=== PATIENT | female | born 1935 | race Caucasian/White ===

== ENCOUNTER 2017-01-25 16:38 | Inpatient (IN) | payer OTHER, BC ==
[~2017-01-25] VITALS: Ht 165.1 cm; Wt 53.5 kg
[~2017-01-25 16:38] MED LIST: AMOX875T PO; LEVO150T PO; NAPR1CAP12 PO
--- NOTE | 2017-01-25 18:08 | DIAGNOSTIC IMAGING REPORT ---
CHEST ONE VIEW PORTABLE CLINICAL HISTORY: Weakness. Dizziness. COMPARISON STUDY: No previous studies for comparison. FINDINGS: There is no pneumothorax or pleural effusion. Pulmonary vascularity is normal. No consolidation is identified to suggest pneumonia. Cardiac size is normal. There is right infrahilar fullness. IMPRESSION: Right infrahilar fullness. This may reflect normal structures however a mass or lymphadenopathy could appear similar and a nonemergent chest CT with contrast is recommended. Electronically signed by: Patricio Malave M.D. 01/25/2017 6:07 PM Dictated Date/Time: 01/25/2017 6:05 PM
--- NOTE | 2017-01-25 18:15 | DIAGNOSTIC IMAGING REPORT ---
CT OF THE HEAD WITHOUT CONTRAST CLINICAL HISTORY: Fall. Weakness. COMPARISON STUDY: No previous studies for comparison. CT DOSE: 879.50 mGy.cm TECHNIQUE: Helical axial images of the head were obtained without IV contrast. Automated exposure control was utilized for the study. FINDINGS: No acute intracranial hemorrhage, midline shift or mass effect is present. Ventricular system is unremarkable for age. The basilar cisterns are patent. There are no extra-axial collections. Moderate white matter hypodensity suggests small vessel disease. There are no findings to suggest acute dural sinus thrombosis or acute territorial infarct. There is no calvarial fracture. There are layering secretions within the right maxillary sinus. There are postsurgical findings within the sinuses. There may be a small amount of fluid within the bilateral mastoid air cells. IMPRESSION: 1. No acute intracranial findings. 2. No calvarial fracture. Electronically signed by: Patricio Malave M.D. 01/25/2017 6:14 PM Dictated Date/Time: 01/25/2017 6:12 PM
--- NOTE | 2017-01-25 18:18 | DIAGNOSTIC IMAGING REPORT ---
CT OF THE CERVICAL SPINE WITHOUT CONTRAST CLINICAL HISTORY: Fall. COMPARISON STUDY: No previous studies for comparison. TECHNIQUE: Helical axial images of the cervical spine were obtained without IV contrast. Sagittal and coronal reconstructions were viewed. FINDINGS: No acute cervical spine fracture is identified. Vertebral body heights are maintained. [id number] multilevel degenerative changes are present. There is a small amount of fluid within the bilateral mastoid air cells. There is no prevertebral edema. There is no pneumothorax within visualized portions of the lung apices. Mild anterolisthesis of C7 on T1 is likely due to facet arthrosis. IMPRESSION: No acute cervical spine fracture or subluxation. Electronically signed by: Patricio Malave M.D. 01/25/2017 6:17 PM Dictated Date/Time: 01/25/2017 6:15 PM
[2017-01-25 18:30] LABS: URINE APPEARANCE CLOUDY (CLEAR); URINE BILIRUBIN NEG (NEG); URINE COLOR YELLOW; URINE NITRITE POS (NEG); URINE SPECIFIC GRAVITY 1.017 (1.000-1.030); UROBILINOGEN NEG (NEG); ZZUR CULT IF INDIC CLEAN CATCH YES
[2017-01-25 18:34] LABS: MANUAL MICROSCOPIC REQUIRED? NO; REVIEW REQ? YES
[2017-01-25] MEDS ORDERED: CEFTRIAXONE SOD INJ 1 GM ADDVIAL IV STA (18:45)
[2017-01-25 19:26] LABS: BASO % 0.3 %; BASO ABS # 0.03 K/uL (0-0.2); COMPLETE YES; EOS % 3.1 %; HEMATOCRIT 41.1 % (37-47); IG% 0.3 %; LYMPH % 22.7 %; LYMPH ABS # 1.96 K/uL (1.2-3.4); MEAN CELL VOLUME 85.8 fL (80-100); MEAN CORPUSCULAR HEMOGLOBIN 28.8 pg (25-34); MEAN CORPUSCULAR HGB CONC 33.6 g/dl (32-36); MEAN PLATELET VOLUME 11.1 fL (7.4-10.4); MONO % 6.7 %; NEUT % 66.9 %; PLATELET COUNT 248 K/uL (130-400); RED BLOOD COUNT 4.79 M/uL (4.2-5.4); WHITE BLOOD COUNT 8.65 K/uL (4.8-10.8)
[2017-01-25] MEDS ORDERED: SODIUM CHLORIDE 0.9% 1000ML 1,000 ML IV STA ×3 (19:31→21:59)
[2017-01-25 19:55] LABS: ALT/SGPT 14 U/L (12-78); BLOOD UREA NITROGEN 38 mg/dl (7-18); BUN/CREATININE RATIO 41.5 (10-20); CALCIUM 9.3 mg/dl (8.5-10.1); CARBON DIOXIDE 26 mmol/L (21-32); CHLORIDE 105 mmol/L (98-107); CREATININE 0.91 mg/dl (0.60-1.20); GLUCOSE 85 mg/dl (70-99); POTASSIUM 4.2 mmol/L (3.5-5.1); SODIUM 139 mmol/L (136-145)
[2017-01-25 20:05] LABS: ALKALINE PHOSPHATASE 62 U/L (45-117); AST/SGOT 8 U/L (15-37)
--- NOTE | 2017-01-25 21:02 | EMERGENCY ROOM VISIT NOTE ---
History Report prepared by Michael: Tayla Gonzalez Under the Supervision of: Dr. Lynnette Rowley D.O. First contact with patient: 17:03 Chief Complaint: HYPOTENSION Stated Complaint: VERTIGO, LOW BP, NAUSEA, VOMITING History of Present Illness The patient is a 81 year old female who presents to the Emergency Room with complaints of intermittent headaches starting 3 months ago. Her daughter reports that the patient will be normal and energetic for 2-3 days and then be pale and without energy for 2-3 days. The headache is present around the top of her head, around her ears, and behind her eyes. When the patient gets her headaches, she also gets nausea and vomiting. She has been losing weight because she has not been eating because of her nausea and vomiting. She experiences some blurry vision. She feels lightheaded and close to passing out at times, but has not lost consciousness. At first, her symptoms were blamed on allergies and she was placed on Claritin which did not help her. She was on a 10 day course of antibiotics for a sinus infection recently, but experienced no relief. She has been monitoring her blood pressure at home and notes that it has been fluctuating. Her blood pressure was 88/46 when it was measured previously at the doctor's office. Three days ago, she fell in the bathroom because she was dizzy. She hit her back on the commode. She denies any chest pain, heart palpitations, SOB, diarrhea, melena, or urinary symptoms. She has no history of migraines. She has a history of bladder cancer. Source of History: patient, family Onset: 3 months ago Position: head Quality: ache Timing: intermittent Associated Symptoms: + nausea, + vomiting, No LOC, No SOB, No chest pain, No diarrhea, No melena, No urinary symptoms Note: Pt reports lightheadedness, dizziness, blurry vision at times. Pt denies heart palpitations. Review of Systems See HPI for pertinent positives & negatives. A total of 10 systems reviewed and were otherwise negative. Past Medical & Surgical Medical Problems: (1) Bladder cancer Family History Noncontributory secondary to age. Social History Smoking Status: Current Every Day Smoker Alcohol Use: none Marital Status: Occupation Status: retired Current/Historical Medications Scheduled Levothyroxine Sodium (Synthroid), 150 MCG PO DAILY Scheduled PRN Naproxen Sodium (Aleve), 1 CAP PO UD PRN for Pain Allergies Coded Allergies: Iodinated Diagnostic Agents (Verified Allergy, Unknown, HIVES TO ORAL CONTRAST, 02/06/14) Corticosteroids (Verified Adverse Reaction, Unknown, "CAN'T TAKE HIGH DOSES", 02/06/14) Physical Exam Vital Signs Date Time Temp Pulse Resp B/P Pulse Ox O2 Delivery O2 Flow Rate FiO2 01/25/17 20:49 69 22 137/71 97 Room Air 01/25/17 20:44 64 163/73 74 161/94 73 137/71 01/25/17 19:05 64 01/25/17 19:02 66 24 149/81 97 01/25/17 16:41 36.6 90 16 151/103 100 Room Air Physical Exam GENERAL: alert, well appearing, slightly cachetic, no distress, non-toxic EYE EXAM: normal conjunctiva, PERRL and EOM's grossly intact OROPHARYNX: no exudate, no erythema, lips, buccal mucosa, and tongue normal and mucous membranes are moist NECK: supple, no nuchal rigidity, no adenopathy, non-tender LUNGS: Decreased breath sounds bilaterally. No wheezes, rhonchi, or rales. HEART: no murmurs, S1 normal and S2 normal ABDOMEN: abdomen soft, non-tender, normo-active bowel sounds, no masses, no rebound or guarding, urostomy bag BACK: Back is symmetrical on inspection and there is no deformity, no midline tenderness, no CVA tenderness. SKIN: no rashes and no bruising UPPER EXTREMITIES: upper extremities are grossly normal. LOWER EXTREMITIES: No pitting edema. NEURO EXAM: Normal sensorium, cranial nerves II-XII intact, normal speech, no weakness of arms, no weakness of legs. No drift. Finger to nose intact. Gross sensation intact. Medical Decision & Procedures ER Provider Diagnostic Interpretation: Xray results per the radiologist and my interpretation. Other results have been interpreted by the radiologist and reviewed by me. CHEST ONE VIEW PORTABLE CLINICAL HISTORY: Weakness. Dizziness. COMPARISON STUDY: No previous studies for comparison. FINDINGS: There is no pneumothorax or pleural effusion. Pulmonary vascularity is normal. No consolidation is identified to suggest pneumonia. Cardiac size is normal. There is right infrahilar fullness. IMPRESSION: Right infrahilar fullness. This may reflect normal structures however a mass or lymphadenopathy could appear similar and a nonemergent chest CT with contrast is recommended. Electronically signed by: Patricio Malave M.D. 01/25/2017 6:07 PM Dictated Date/Time: 01/25/2017 6:[address] OF THE HEAD WITHOUT CONTRAST CLINICAL HISTORY: Fall. Weakness. COMPARISON STUDY: No previous studies for comparison. CT DOSE: 879.50 mGy.cm TECHNIQUE: Helical axial images of the head were obtained without IV contrast. Automated exposure control was utilized for the study. FINDINGS: No acute intracranial hemorrhage, midline shift or mass effect is present. Ventricular system is unremarkable for age. The basilar cisterns are patent. There are no extra-axial collections. Moderate white matter hypodensity suggests small vessel disease. There are no findings to suggest acute dural sinus thrombosis or acute territorial infarct. There is no calvarial fracture. There are layering secretions within the right maxillary sinus. There are postsurgical findings within the sinuses. There may be a small amount of fluid within the bilateral mastoid air cells. IMPRESSION: 1. No acute intracranial findings. 2. No calvarial fracture. Electronically signed by: Patricio Malave M.D. 01/25/2017 6:14 PM Dictated Date/Time: 01/25/2017 6:[address] OF THE CERVICAL SPINE WITHOUT CONTRAST CLINICAL HISTORY: Fall. COMPARISON STUDY: No previous studies for comparison. TECHNIQUE: Helical axial images of the cervical spine were obtained without IV contrast. Sagittal and coronal reconstructions were viewed. FINDINGS: No acute cervical spine fracture is identified. Vertebral body heights are maintained. [id number] multilevel degenerative changes are present. There is a small amount of fluid within the bilateral mastoid air cells. There is no prevertebral edema. There is no pneumothorax within visualized portions of the lung apices. Mild anterolisthesis of C7 on T1 is likely due to facet arthrosis. IMPRESSION: No acute cervical spine fracture or subluxation. Electronically signed by: Patricio Malave M.D. 01/25/2017 6:17 PM Dictated Date/Time: 01/25/2017 6:15 PM Laboratory Results 01/25/17 19:00 Red Blood Count 4.79, Mean Corpuscular Volume 85.8, Mean Corpuscular Hemoglobin 28.8, Mean Corpuscular Hemoglobin Concent 33.6, Mean Platelet Volume 11.1, Neutrophils (%) (Auto) 66.9, Lymphocytes (%) (Auto) 22.7, Monocytes (%) (Auto) 6.7, Eosinophils (%) (Auto) 3.1, Basophils (%) (Auto) 0.3, Neutrophils # (Auto) 5.78, Lymphocytes # (Auto) 1.96, Monocytes # (Auto) 0.58, Eosinophils # (Auto) 0.27, Basophils # (Auto) 0.03 01/25/17 19:00 Test 01/25/17 18:00 01/25/17 19:00 Urine Color YELLOW Urine Appearance CLOUDY (CLEAR) Urine pH 6.0 (4.5-7.5) Urine Specific [place] 1.017 (1.000-1.030) Urine Protein 1+ (NEG) Urine Glucose (UA) NEG (NEG) Urine Ketones NEG (NEG) Urine Occult Blood 2+ (NEG) Urine Nitrite POS (NEG) Urine Bilirubin NEG (NEG) Urine Urobilinogen NEG (NEG) Urine Leukocyte Esterase MODERATE (NEG) Urine WBC (Auto) >30 /hpf (0-5) Urine RBC (Auto) 5-10 /hpf (0-4) Urine Hyaline Casts (Auto) 5-10 /lpf (0-5) Urine Epithelial Cells (Auto) 10-20 /lpf (0-5) Urine Bacteria (Auto) 4+ (NEG) Urine Pathogenic Casts /lpf (0) White Blood Count 8.65 K/uL (4.8-10.8) Red Blood Count 4.79 M/uL (4.2-5.4) Hemoglobin 13.8 g/dL (12.0-16.0) Hematocrit 41.1 % (37-47) Mean Corpuscular Volume 85.8 fL (80-100) Mean Corpuscular Hemoglobin 28.8 pg (25-34) Mean Corpuscular Hemoglobin Concent 33.6 g/dl (32-36) Platelet Count 248 K/uL (130-400) Mean Platelet Volume 11.1 fL (7.4-10.4) Neutrophils (%) (Auto) 66.9 % Lymphocytes (%) (Auto) 22.7 % Monocytes (%) (Auto) 6.7 % Eosinophils (%) (Auto) 3.1 % Basophils (%) (Auto) 0.3 % Neutrophils # (Auto) 5.78 K/uL (1.4-6.5) Lymphocytes # (Auto) 1.96 K/uL (1.2-3.4) Monocytes # (Auto) 0.58 K/uL (0.11-0.59) Eosinophils # (Auto) 0.27 K/uL (0-0.5) Basophils # (Auto) 0.03 K/uL (0-0.2) RDW Standard Deviation 44.1 fL (36.4-46.3) RDW Coefficient of Variation 14.1 % (11.5-14.5) Immature Granulocyte % (Auto) 0.3 % Immature Granulocyte # (Auto) 0.03 K/uL (0.00-0.02) Anion Gap 8.0 mmol/L (3-11) Est Creatinine Clear Calc Drug Dose 37.1 ml/min Estimated GFR () 68.6 Estimated GFR (Non- 59.2 BUN/Creatinine Ratio 41.5 (10-20) Calcium Level 9.3 mg/dl (8.5-10.1) Magnesium Level 2.0 mg/dl (1.8-2.4) Total Bilirubin 0.6 mg/dl (0.2-1) Aspartate Amino Transf (AST/SGOT) 8 U/L (15-37) Alanine Aminotransferase (ALT/SGPT) 14 U/L (12-78) Alkaline Phosphatase 62 U/L (45-117) Troponin I < 0.015 ng/ml (0-0.045) Total Protein 7.1 gm/dl (6.4-8.2) Albumin 3.5 gm/dl (3.4-5.0) Globulin 3.6 gm/dl (2.5-4.0) Albumin/Globulin Ratio 1.0 (0.9-2) Thyroid Stimulating Hormone (TSH) 1.080 uIu/ml (0.300-4.500) Laboratory results per my review. Medications Administered Medications (Trade) Dose Ordered Sig/Pradeep Route Start Time Stop Time Status Last Admin Dose Admin Sodium Chloride 1,000 ml @ 999 mls/hr Q1H1M STAT IV 01/25/17 19:31 01/25/17 20:31 DC 01/25/17 19:39 999 MLS/HR Sodium Chloride 1,000 ml @ 999 mls/hr Q1H1M STAT IV 01/25/17 20:23 01/25/17 21:23 DC 01/25/17 20:23 999 MLS/HR Sodium Chloride (Nss 1000ml) 1,000 ml @ 125 mls/hr Q8H STAT IV 01/25/17 21:59 01/26/17 05:58 01/25/17 22:13 125 MLS/HR ECG Indication: weakness Rate (beats per minute): 65 Rhythm: sinus rhythm Findings: PVC, no acute ischemic change, other (normal axis, normal interval) ED Course 1712: The patient was evaluated in room C10. A complete history and physical exam was performed. 1930: NSS 1000 ml @ 999 mls/hr IV. 2022: NSS 1000 ml @ 999 mls/hr IV. 2043: I reevaluated the patient. I tried standing the patient up and doing orthos. She was unsteady and began to complain of headache and lightheadedness. I discussed the results and treatment plan with her. She is agreeable to further evaluation. Medical Decision Differential diagnoses: dehydration, renal failure, electrolyte abnormality, intracranial mass, intracranial hemorrhage, CVA. UA contaminated due to urostomy. Culture pending. Concern given the persistence of orthostatic symptoms despite no recurrence of hypotension. Patient with recent weight loss, poor appetite, recurrent headaches and vomiting and failure to thrive. Doubt occult infectious process, UA contaminated culture pending. Vital signs improved here. No other evidence of occult infectious process, bacteremia/sepsis. Unclear etiology of recurrent headaches and vomiting. No prior history of migraines. Concern given per by mouth intake, weight loss, and unsteady gait seemed bedside despite IV fluids. Ratio BUN/creatinine were suggestive of dehydration, I do not suspect an occult GI bleed. Doubt vascular etiology/dissection, doubt ACS - no c/o cp/sob. Impression Primary Impression: Dehydration Additional Impressions: Headache Dizziness Weight loss Vomiting Scribe Attestation The scribe's documentation has been prepared under my direction and personally reviewed by me in its entirety. I confirm that the note above accurately reflects all work, treatment, procedures, and medical decision making performed by me. Departure Information Dispostion Being Evaluated By Hospitalist Jm Scott D.O. (PCP) Patient Instructions My [facility] Problem Qualifiers Additional Impressions: Headache Headache type: unspecified Headache chronicity pattern: episodic headache Intractability: not intractable Qualified Codes: R51 - Headache Vomiting Vomiting type: unspecified Vomiting Intractability: non-intractable Nausea presence: with nausea Qualified Codes: R11.2 - Nausea with vomiting, unspecified
--- NOTE | 2017-01-25 21:50 | History and Physical ---
History & Physical Date & Time of Service: Jan 25, 2017 at 21:50 Chief Complaint: Vertigo, Low Bp, Nausea, Vomiting Primary Care Physician: Jm Bender D.O. History of Present Illness Source: family This is an 81 y/o F with a history of Bladder ca s/p bladder removal and urostomy, Hypothyroidism, multiple surgeries who presents with a 3 months history of feeling unwell. The patient is extremely hard of hearing, so most of history was obtained from daughter, though the patient is completely alert, oriented and can respond to questions. Does not have her hearing aids. The daughter reports that she's had ongoing weakness, fatigue and headaches. She will have a few good days and then several bad days where she would be vomiting , and look pale and be dizzy/presyncopal. She did have one episode of a fall where she hit the back of her head on the toilet because she was so dizzy. She just feels "unwell" and is worried that her bladder cancer is back. She has lost about 8 months in a month. Has frequent chills and night sweats. She has not been following anyone for her bladder ca/urostomy for about 2 years now, so she recently made an appt with Dr. Novak. Her appointment to establish care was this morning. At the office, she was found to be significantly hypotensive and was redirected to the ER. In the ER she received two boluses of NSS after which her pressures stabilized. Shortly after my encounter with her, she went into Afib with RVR and became hypotensive. Another 2 boluses were given. Digoxin was prepared, however, she converted back into NSR. She remained asymptomatic through this. SHe continues to smoke 1/2 PPD and consumes alcohol occasionally. Past Medical/Surgical History Medical Problems: (1) Bladder cancer Status: Resolved Social History Smoking Status: Current Every Day Smoker Alcohol Use: occasionally Marital Status: Occupational Status: retired Allergies Coded Allergies: Iodinated Diagnostic Agents (Verified Allergy, Unknown, HIVES TO ORAL CONTRAST, 02/06/14) Corticosteroids (Verified Adverse Reaction, Unknown, "CAN'T TAKE HIGH DOSES", 02/06/14) Home Medications Scheduled Levothyroxine Sodium (Synthroid), 150 MCG PO DAILY Scheduled PRN Naproxen Sodium (Aleve), 1 CAP PO UD PRN for Pain Review of Systems Constitutional: + chills, + fatigue, + sweats, + weakness, + weight loss Eyes: No worsening of vision ENT: + hearing loss Respiratory: No cough, No dyspnea at rest, No dyspnea on exertion, No shortness of breath, No sputum, No wheezing Cardiovascular: No chest pain Abdomen: + nausea, + vomiting, No constipation, No diarrhea, No pain Musculoskeletal: + joint pain, + muscle pain Physical Exam Vital Signs Date Time Temp Pulse Resp B/P Pulse Ox O2 Delivery O2 Flow Rate FiO2 01/25/17 20:49 69 22 137/71 97 Room Air 01/25/17 20:44 64 163/73 74 161/94 73 137/71 01/25/17 19:05 64 01/25/17 19:02 66 24 149/81 97 01/25/17 16:41 36.6 90 16 151/103 100 Room Air General Appearance: no apparent distress Head: normocephalic, atraumatic Eyes: PERRL, EOMI ENT: hearing grossly normal Neck: supple, + adenopathy present (left cervical) Respiratory/Chest: lungs clear, normal breath sounds, no respiratory distress Cardiovascular: regular rate, rhythm, no edema, no murmur Abdomen/GI: normal bowel sounds, non tender, soft, + pertinent finding ( urostomy in place) Back: no CVA tenderness Extremities/Musculoskelatal: no calf tenderness, no pedal edema Neurologic/Psych: no motor/sensory deficits, alert Diagnostics Laboratory Results Results Past 24 Hours Test 01/25/17 18:00 01/25/17 19:00 Range/Units Urine Color YELLOW Urine Appearance CLOUDY CLEAR Urine pH 6.0 4.5-7.5 Urine Specific [place] 1.017 1.000-1.030 Urine Protein 1+ NEG Urine Glucose (UA) NEG NEG Urine Ketones NEG NEG Urine Occult Blood 2+ NEG Urine Nitrite POS NEG Urine Bilirubin NEG NEG Urine Urobilinogen NEG NEG Urine Leukocyte Esterase MODERATE NEG Urine WBC (Auto) >30 0-5 /hpf Urine RBC (Auto) 5-10 0-4 /hpf Urine Hyaline Casts (Auto) 5-10 0-5 /lpf Urine Epithelial Cells (Auto) 10-20 0-5 /lpf Urine Bacteria (Auto) 4+ NEG Urine Pathogenic Casts 0 /lpf White Blood Count 8.65 4.8-10.8 K/uL Red Blood Count 4.79 4.2-5.4 M/uL Hemoglobin 13.8 12.0-16.0 g/dL Hematocrit 41.1 37-47 % Mean Corpuscular Volume 85.8 80-100 fL Mean Corpuscular Hemoglobin 28.8 25-34 pg Mean Corpuscular Hemoglobin Concent 33.6 32-36 g/dl Platelet Count 248 130-400 K/uL Mean Platelet Volume 11.1 7.4-10.4 fL Neutrophils (%) (Auto) 66.9 % Lymphocytes (%) (Auto) 22.7 % Monocytes (%) (Auto) 6.7 % Eosinophils (%) (Auto) 3.1 % Basophils (%) (Auto) 0.3 % Neutrophils # (Auto) 5.78 1.4-6.5 K/uL Lymphocytes # (Auto) 1.96 1.2-3.4 K/uL Monocytes # (Auto) 0.58 0.11-0.59 K/uL Eosinophils # (Auto) 0.27 0-0.5 K/uL Basophils # (Auto) 0.03 0-0.2 K/uL RDW Standard Deviation 44.1 36.4-46.3 fL RDW Coefficient of Variation 14.1 11.5-14.5 % Immature Granulocyte % (Auto) 0.3 % Immature Granulocyte # (Auto) 0.03 0.00-0.02 K/uL Sodium Level 139 136-145 mmol/L Potassium Level 4.2 3.5-5.1 mmol/L Chloride Level 105 98-107 mmol/L Carbon Dioxide Level 26 21-32 mmol/L Anion Gap 8.0 3-11 mmol/L Blood Urea Nitrogen 38 7-18 mg/dl Creatinine 0.91 0.60-1.20 mg/dl Est Creatinine Clear Calc Drug Dose 37.1 ml/min Estimated GFR () 68.6 Estimated GFR (Non- 59.2 BUN/Creatinine Ratio 41.5 10-20 Random Glucose 85 70-99 mg/dl Calcium Level 9.3 8.5-10.1 mg/dl Magnesium Level 2.0 1.8-2.4 mg/dl Total Bilirubin 0.6 0.2-1 mg/dl Aspartate Amino Transf (AST/SGOT) 8 15-37 U/L Alanine Aminotransferase (ALT/SGPT) 14 12-78 U/L Alkaline Phosphatase 62 45-117 U/L Troponin I < 0.015 0-0.045 ng/ml Total Protein 7.1 6.4-8.2 gm/dl Albumin 3.5 3.4-5.0 gm/dl Globulin 3.6 2.5-4.0 gm/dl Albumin/Globulin Ratio 1.0 0.9-2 Thyroid Stimulating Hormone (TSH) 1.080 0.300-4.500 uIu/ml Microbiology Results 01/25/17 Urine Culture, Received Pending Impression Assessment and Plan This is an 81 y/o F who presents with a 3 month history of feeling unwell, fatigue, weakness, vomiting and headaches. Imaging today reveals new lung malignancy that is likely contributing to her symptoms and overall lack of wellness. 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 preexisting but unknown and untreated) - back in sinus rhythm now - echo - troponin x 3 - TSH is normal - chest xray without evidence of HF - serum electrolyte normal - CBC is normal - Will need to decide on Anticoagulation with Daughter - [id number] 3 UTI UC pending Rocephin DVT proph - Lovenox Code: Patient is agreeable to chest compressions and debrillation but NO ventilation. Assessment and Plan Attending Addendum: I have physically seen and examined this patient, have directed their medical care, have supervised the medical residents activities, and agree with the H&P as noted above, with the following changes: The patient is awake, well-developed and adequately nourished, alert and oriented 3, normocephalic and atraumatic, lying in bed and in no acute distress. HEENT--PERRL, EOMI, mucous membranes and oropharynx dry. Neck--supple, no JVD or bruits, thyroid normal, trachea midline, left anterior cervical lymphadenopathy. Heart--normal S1 and S2, no extra beats, no murmurs, rubs or gallops. Lungs--clear bilaterally with good air movement, no respiratory distress, no accessory muscle use. Abdomen--normal bowel sounds and soft, nontender and nondistended, urostomy in place. Extremities--no cyanosis, clubbing or edema. There are good distal pulses b/l. Dermatologic--normal skin turgor, normal color, warm and dry, no abnormal lymph nodes, no rash. Neurologic--cranial nerves II through XII grossly intact, motor and sensory examination normal. Rheumatologic--normal range of motion, nontender, muscles and joints. Psychiatric--normal affect. 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 She'll be placed on IV fluids. We'll consult pulmonary for possible bronchoscopy. She will also need to see oncology. Paroxysmal atrial fibrillation--occurred while she was in the emergency department as a new process. She did respond to a 500 mL bolus of normal saline. Admit to telemetry as noted above, to follow serial cardiac enzymes, cardiac rhythm monitoring and a 2-D echocardiogram with Dopplers. Unknown if this is a recurrent event for a first-time event, and since it is self-limited today, will hold off anticoagulation, but we will consult cardiology for their opinion if recurrent UTI--follow urine culture and sensitivity results. Ceftriaxone 1 g IV daily.
[2017-01-25] MEDS: SODIUM CHLORIDE 0.9% 1000ML 1,000 ML IV SCH (22:28)
[2017-01-25] MEDS ORDERED: ACETAMINOPHEN 325 MG TAB PO PRN (22:30)
[2017-01-25] MEDS ORDERED: MAGNESIUM HYDROXIDE SUSP 30 ML UDC PO PRN (22:30)
[2017-01-25] MEDS ORDERED: ALUMINUM/MAGNESIUM/SIMETH (MAALOX MAX) 30 ML UDC PO PRN (22:30)
[2017-01-25] MEDS ORDERED: POLYETHYLENE (MIRALAX) 17 GM PACK PO PRN (22:30)
[2017-01-25] MEDS ORDERED: NAPROXEN 250 MG TAB PO PRN (22:30)
[2017-01-25] MEDS ORDERED: ENOXAPARIN 40 MG/0.4 ML SYR SC SCH (22:30)
[2017-01-25] MEDS ORDERED: ONDANSETRON INJ 2 MG/ML 2 ML VIAL IV STA (22:40)
--- NOTE | 2017-01-25 22:58 | DIAGNOSTIC IMAGING REPORT ---
CT OF THE CHEST WITHOUT IV CONTRAST CLINICAL HISTORY: Abnormal chest radiograph with right hilar fullness. COMPARISON STUDY: Chest radiograph performed earlier today. CT DOSE: 279.70 mGy.cm TECHNIQUE: Axial images of the chest were obtained without IV contrast. Images were reviewed in the axial, sagittal, and coronal planes. IV contrast was not administered for this examination. FINDINGS: The size of the heart is at upper limits of normal. There is no pericardial effusion. Note is made of a 9.5 x 5.7 x 3.6 cm mass-like abnormality within the medial aspect the right lower lobe. This involves the superior segment of the right lower lobe and the medial basilar segment of the right lower lobe. The bronchus to the superior segment may be occluded. There is narrowing with possible occlusion of multiple segmental bronchi within the right lower lobe. This mass-like abnormality is irregular. There is no pneumothorax or pleural effusion. A few scattered pulmonary nodules are noted, including a 6 mm right upper lobe nodule. This is shown on image 77 of 316. A borderline enlarged subcarinal lymph node measures 1 cm short axis diameter. There are several suspected mildly enlarged right hilar lymph nodes which are suboptimally assessed on this unenhanced exam. Note is made of a 2.4 cm area of sclerosis within the T12 vertebral body which extends into the right pedicle. There is associated irregularity the posterior cortex of this vertebral body. Several water attenuation hepatic lesions likely reflect cysts. There is an intermediate attenuation 2.1 cm right hepatic lobe lesion shown on image 52 of 64. A water attenuation lesion arising from the upper pole of the left kidney likely reflects a cyst. There is right renal atrophy. IMPRESSION: 1. 9.5 x 5.7 x 3.6 cm irregular mass-like opacity within the superior segment and medial basilar segment of the right lower lobe which corresponds to the abnormality on prior chest radiograph. This is suggestive of a neoplastic process such as bronchogenic carcinoma. An infectious process could appear similar although neoplasm is favored. Consultation for consideration for bronchoscopy is recommended for tissue sampling 2. A few indeterminate small pulmonary nodules, as described above. 3. 2.1 cm hypodense right hepatic lobe lesion which could be assessed with a contrast-enhanced CT. This could reflect a metastasis. 4. Indeterminate 2.4 cm sclerotic lesion within the T12 vertebral body which extension into the right pedicle and results in irregularity of the posterior cortex. 5. Several suspected enlarged right hilar lymph nodes which are suboptimally assessed on this unenhanced exam. This could reflect billy spread of disease. Electronically signed by: Patricio Malave M.D. 01/25/2017 10:57 PM Dictated Date/Time: 01/25/2017 10:37 PM
[2017-01-25] MEDS ORDERED: DIGOXIN IV 250 MCG in SYRINGE 9 ML IV ONE (23:45)
[2017-01-26] VITALS (9 sets, daily range): BP systolic 97–151; BP diastolic 57–80; PULSE 60–84; TEMP 36.6–36.9; O2SAT 93–97; Ht 165.1 cm; Wt 53.5 kg
[2017-01-26] MEDS ORDERED: NURSING VERBAL MED ORDER ONE (02:30)
[2017-01-26] MEDS ORDERED: CEFTRIAXONE SOD INJ 1 GM ADDVIAL IV STA (02:31)
--- NOTE | 2017-01-26 07:11 | DIAGNOSTIC IMAGING REPORT ---
ABDOMEN AND PELVIS CT WITHOUT CONTRAST CT DOSE: 256.32 mGy.cm HISTORY: Neoplasm look for neoplastic dz./ mets TECHNIQUE: Multiaxial CT images of the abdomen and pelvis were performed without contrast. COMPARISON STUDY: None. FINDINGS: 5 x 4 cm masslike process lower right paravertebral region. This is associated with sclerosis of the T12 vertebral body at its right posterolateral aspect. 8 mm nodular density left lateral costophrenic angle. Lung bases otherwise are considered clear. Possible punctate additional nodular densities right base 2. Small quantify. Multiple hepatic hypodensities the bulk of which are most likely cystic. Several are too small to quantify. Spleen is unremarkable. Pancreas is uniform within limitations of an unenhanced scan. Right kidney is atrophic. There is mild bilateral hydronephrosis. Patient is status post ileal loop diversion. There is single significant increase in fecal material within the rectosigmoid. Postoperative bowel anastomotic changes are present. Bowel pattern in general is nonobstructive nonobstructive. 3.2 cm infrarenal abdominal aortic aneurysm. Degenerative change lumbar spine. Possible small lytic defects left superior iliac crest. Old compression deformities of L1 and L3. Postoperative changes of the soft tissue pelvis. Prior cystectomy IMPRESSION: 1. Right lower thoracic paravertebral soft tissue mass raising possibility of neoplasm.. 2. Hepatic cysts although several are too small to quantify. 3. Additional smaller bibasilar pulmonary nodularity. 4. Probable metastatic focus T12 vertebral body and possibly left superior iliac crest. 5. Nonobstructive bowel pattern. 6. Status post bilateral partial colonic resection with prior cystectomy and ileal loop procedure Electronically signed by: Abdoulaye Mitchell M.D. 01/26/2017 7:09 AM Dictated Date/Time: 01/26/2017 7:01 AM
[2017-01-26] MEDS: LEVOTHYROXINE 150 MCG TAB PO SCH (07:14)
--- NOTE | 2017-01-26 08:35 | Family Medicine Progress Note ---
Progress Note Date of Service Jan 26, 2017. Subjective Pt evaluation today including: conversation w/ patient, physical exam, chart review, lab review Patient hard of hearing, so need to raise volume of voice to communicate. She is complaining of headache, but otherwise denies pain or discomfort including CP , SOB, back pain, abdominal pain. When offered analgesia, patient declines. Explained that she could let us know if she changed her mind. Not inclined to start a conversation at this time otherwise. No family at bedside, told nurse to inform once someone arrives in order to attain a more detailed history. Constitutional: No fever Respiratory: No shortness of breath Cardiovascular: No chest pain Abdomen: No pain Musculoskeletal: No joint pain Objective Vital Signs Date Time Temp Pulse Resp B/P Pulse Ox O2 Delivery O2 Flow Rate FiO2 01/26/17 06:00 78 01/26/17 04:30 36.8 78 20 133/57 96 Room Air 01/26/17 03:47 153/52 01/26/17 03:03 72 01/26/17 03:00 70 17 01/26/17 02:00 82 19 01/26/17 01:00 46 19 98/52 01/26/17 00:03 72 20 130/45 95 Room Air 01/25/17 23:51 68 01/25/17 23:45 70 01/25/17 23:42 180 20 83/52 95 Room Air 01/25/17 23:25 171 01/25/17 23:25 136 01/25/17 23:06 70 01/25/17 22:46 71 20 155/76 95 Room Air 01/25/17 20:49 69 22 137/71 97 Room Air 01/25/17 20:44 64 163/73 74 161/94 73 137/71 01/25/17 19:05 64 01/25/17 19:02 66 24 149/81 97 01/25/17 16:41 36.6 90 16 151/103 100 Room Air Physical Exam General Appearance: WD/WN, no apparent distress Eyes: normal inspection ENT: + pertinent finding (Hard of hearing) Neck: supple Respiratory/Chest: lungs clear, no respiratory distress, no accessory muscle use, + decreased breath sounds Cardiovascular: regular rate, rhythm, no murmur Abdomen: normal bowel sounds, non tender, soft, + pertinent finding (urostomy bag present, half filled with yellow cloudy urine) Extremities: no pedal edema, no calf tenderness Neurologic/Psychiatric: alert, normal mood/affect Skin: normal color, warm/dry, no rash Laboratory Results Results Past 24 Hours Test 01/26/17 04:12 01/26/17 10:48 01/26/17 20:10 Range/Units Troponin I < 0.015 < 0.015 0-0.045 ng/ml Prothrombin Time 10.3 9.0-12.0 SECONDS Prothromb Time International Ratio 1.0 0.9-1.1 Activated Partial Thromboplast Time 26.5 21.0-31.0 SECONDS Partial Thromboplastin Ratio 1.0 Assessment and Plan 81 year old female with history of bladder cancer s/p resection who presents with 3 month history of fatigue, weakness, vomiting, headaches and significant weight loss. Imaging reveals lung mass, pulm nodules, lesions in spine and liver , concerning for primary lung cancer with metastases. Lung mass - likely primary malignancy with metastases - Pulm consulted - recs appreciated. For bronchoscopy Sunday - Heme/onc consulted - Pain management: PRN Tylenol, Naproxen, Morphine A.fib - unsure if new or pre-existing but undiagnosed. Trop x 3 negative. TSH WNL. Echo showed grade I diastolic dysfunction. - Discussion re: anticoagulation pending for daughter's (POA) arrival. Patient' s [id number] score: 3 COPD - Contine nebulizer tx UTI - Empiric ceftriaxone - Urine culture pending Hypothyroidism - Continue levothyroxine DVT prophylaxis - Heparin 5000 units SC Code Patient is agreeable to chest compressions and defibrillation but NO ventilation. Resident Tracking Resident Involvement: Resident Care Provided Care Provided: Adult Hospital Medicine History Resident Physician Supervision Note: I was present with Dr. Almaraz during the history and exam. I discussed the case with the resident and agree with the findings and plan as documented in the note. Any exceptions or clarifications are listed here. Pt seen and examined at bedside. No acute events since admission. Pt very hard of hearing. Presently, resting comfortably in bed without acute complaint. Feeling somewhat weak globally. General Appearance: no apparent distress Respiratory: chest non-tender, no respiratory distress, decreased breath sounds , wheezing Cardiovascular: normal peripheral pulses, regular rate, rhythm, no murmur Assessment/Plan 81 y/o female h/o bladder cancer presents with 3 months of worsening fatigue Atrial fibrillation (new v. preexisting undiagnosed) - troponin x 2 negative, 3rd pending - echocardiogram - grade 1 diastolic dysfunction - awaiting daughter to discuss AC in full - [id number] Lung mass - likely malignancy (primary) w/ metastasis - Pulmonology and hematology/oncology aware - plans for bronchoscopy on Sunday - reviewed with family the potential course of therapy and ramifications of invasive testing in light of DNI order and they will consider once final daughter arrives UTI - f/u Ucx, continue rocephin Hypothyroidism - continue synthroid DVT PPX - heparin
[2017-01-26] MEDS: SODIUM CHLORIDE 0.9% 1000ML 1,000 ML IV SCH ×2 (10:01→22:00)
[2017-01-26 11:20] LABS: PROTHROMBIN TIME (PATIENT) 10.3 SECONDS (9.0-12.0)
--- NOTE | 2017-01-26 12:04 | PULMONARY CONSULTATION ---
DATE OF CONSULTATION: 01/26/2017 DATE OF CONSULTATION: 01/26/2017. TIME: 10:45 a.m. REPORT OF CONSULTATION: The patient was seen in room 101. She is an 81-year-old female who is very hard of hearing. No family members were present. She has not been feeling well for about 3 months. Her chief complaint is that of severe headaches. This would be involving both sides of the head. Since October she has been having some nausea and vomiting. It bothers her, especially in the morning. She has not been able to eat much. She has been losing weight. The patient has had fatigue. Four days prior to this she had a fall episode at home. She was in the bathroom at the time and became dizzy. She fell backwards but insists she did not lose consciousness and did not hurt herself. Apparently, she has had some near syncope at times. Her blood pressure has been documented to be low. Yesterday she was in another physician's office and was found to be hypotensive and was referred over to the Emergency Room. She has had some chills and sweats. She states her legs hurt and her feet hurt. The patient denies any shortness of breath. She does have a cough. Typically this is productive of mucus which is white. She denies having coughed up any blood. She has not had any chest pains either anteriorly, posteriorly or laterally. She denies pain in the spine. The patient was given IV fluids in the Emergency Room. This was done because she seemed to be weak and symptomatic when she would stand. I did not find documented low blood pressures. As part of her evaluation, the patient had a chest x-ray done. This suggested the possibility of a right infrahilar fullness. Otherwise, no active disease was noted. The heart size was normal. She underwent a CAT scan of the chest. This revealed a 9.5 x 5.7 x 3.6 irregular mass-like density in the right infrahilar region involving mainly the right lower lobe. This would be extremely suggestive for a lung neoplasm. I suspect there is hilar node involvement. She has a 2.1 cm density in the right hepatic lobe which may reflect metastatic disease but it was not definite. They also saw a sclerotic lesion in the T12 vertebral body with extension into the right pedicle with an inability to exclude metastatic disease. The patient has a longstanding history of smoking. She started about age 17. Most of her life she smoked 1 pack per day she states. Recently she has cut back some. She likely has a 60+ pack year history of smoking. Her alcohol use is rare. PAST SURGICAL HISTORY: Bladder resection with urostomy 2005. PAST MEDICAL HISTORY: 1. Childbirth x6. 2. Hypothyroidism. 3. Bladder cancer as noted above. FAMILY HISTORY: The patient could not tell me what kind of medical illnesses her mother and father and family members had. ALLERGIES: THERE IS LISTED ALLERGIES TO STEROIDS IN HIGH DOSES WELL TO CONTRAST DYE. REVIEW OF SYSTEMS: Negative except as noted above. Ten systems were reviewed. However, the patient was hard of hearing and obtaining this history was somewhat limited. HOME MEDICATIONS: Levothyroxine 150 mcg daily and naproxen p.r.n. PHYSICAL EXAMINATION: GENERAL: The patient is an 81-year-old female who was very hard of hearing. She was lethargic at first but seemed to awaken and arouse. I believe she is oriented. She knows she is in the hospital. She was able to tell me that she lives with one of her sons. She mentioned her daughter, Jenae who works in a halfway. She was expecting her to be in here soon. HEAD, EYES, EARS, NOSE, AND THROAT: Her pupils were reactive to light. The nasal passages were clear. The mouth exam showed an absence of teeth. The neck veins were flat. NECK: Palpation of the neck revealed no lymph nodes or masses. CHEST: Showed kyphosis. CARDIAC: Rate is 60 per minute. Occasional extrasystole was seen. The most recent blood pressure is 151/65. LUNGS: The respiratory rate is 20 breaths per minute. She has diminished breath sounds diffusely. Wheezing was heard posteriorly bilaterally. This would only be heard when she took a very deep breaths and exhaled strenuously. ABDOMEN: Shows evidence of a urostomy. Bowel sounds were diminished. There was no tenderness to palpation or masses. She has a suprapubic midline scar from prior surgery. EXTREMITIES: Showed no cyanosis, clubbing or edema. Not mentioned above, is that the patient do go into some transient rapid atrial fibrillation in the Emergency Room. LABORATORY DATA: White count is 8.65. Hemoglobin 13.8. Platelets 248,000. Urinalysis showed 4+ bacteria, 2+ blood, moderate urine leukocyte esterase, 1+ protein. Electrolytes show sodium 139, potassium 4.2, chloride 105, bicarb 26. BUN was 38 with a creatinine of 0.91. Calcium was 9.3, magnesium 2.0. Liver functions were normal. This included AST, ALT and alkaline phosphatase. Troponins were negative. TSH was 1.080. EKG done in the Emergency Room showed a sinus rhythm with PVCs. There were mild nonspecific ST and T-wave changes. The patient also had done a cervical spine CAT scan that was negative for acute fracture. She had a head CT done that showed no acute intracranial findings. A CT of the abdomen and pelvis suggested the finding of the right lower thoracic mass with multiple hepatic cysts being seen. Possible metastatic foci of T12 vertebral body and possibly left superior iliac crest was noted. She was status post partial colonic resection with prior cystectomy. IMPRESSIONS: 1. Right lower lobe mass -- most likely primary bronchogenic carcinoma. 2. Right upper lobe nodule 6 mm. 3. Possible bone metastasis. 4. Possible liver metastasis. 5. Chronic obstructive pulmonary disease. 6. Nicotine addiction. The patient is definitely a candidate for bronchoscopy for definitive diagnosis. This likely could be done on Sunday by Dr. Macias. I have asked nurses to call me when the patient's daughter arrives today so I could discuss everything with her. We would like to make sure of course that she is hemodynamically stable. I am going to check an ABG as well as coagulation studies. I believe she has COPD and I am going to initiate nebulizer treatments. Thank you very much for asking me to assist in her care.
--- NOTE | 2017-01-26 13:56 | ECHOCARDIOGRAM REPORT ---
*NOTICE TO RECEIVING DEMOCRAT AGENCY This information is strictly Confidential and protected under [place] law. [place] law prohibits you from making any further disclosure of this information unless further disclosure is expressly permitted by the written consent of the person to whom it pertains or is authorized by law. A general authorization for the release of medical or other information is not sufficient for this purpose. Hospital accepts no responsibility if the information is made available to any other person, INCLUDING THE PATIENT. Interpretation Summary * Name: JASSON CORTEZ Study Date: 01/26/2017 08:26 AM BP: 133/57 mmHg * [facility] HR: 72 * : 1935 (M/d/yyy) Gender: Female Height: 65 in * Age: 81 yrs Ethnicity: [place] Weight: 106 lb * Ordering Physician: Beatris Narvaez * Referring Physician: Self, Referred * Performed By: Heidy Crowder [facility] * * Reason For Study: A-FIB * BSA: 1.5 m2 * -- Conclusions -- * Left ventricular systolic function is normal. * The right ventricle is borderline dilated. * Grade I diastolic dysfunction, (abnormal relaxation pattern). Procedure Details * A complete two-dimensional transthoracic echocardiogram was performed (2D, M-mode, Doppler and color flow Doppler). Left Ventricle * The left ventricle is normal in size. * There is normal left ventricular wall thickness. * Left ventricular systolic function is normal. * Ejection Fraction = 55-60%. * Grade I diastolic dysfunction, (abnormal relaxation pattern). Right Ventricle * The right ventricle is borderline dilated. * The right ventricular systolic function is normal. Atria * The left atrial size is normal. * Right atrial size is normal. Mitral Valve * The mitral valve is grossly normal. * Significant mitral regurgitation is absent. Tricuspid Valve * The tricuspid valve is not well visualized. * There is trace tricuspid regurgitation. Aortic Valve * The aortic valve is not well visualized. * No hemodynamically significant valvular aortic stenosis. * There is no significant aortic regurgitation. Great Vessels * The aortic root is normal size. Pericardium/Pleural * There is no pericardial effusion. MMode 2D Measurements and Calculations IVSd 1.1 cm IVSs 1.4 cm LVIDd 2.9 cm LVIDs 2.1 cm LVPWd 0.98 cm LVPWs 1.2 cm IVS/LVPW 1.2 FS 27.6 % EDV(Teich) 33.2 ml ESV(Teich) 14.8 ml EF(Teich) 55.3 % EDV(cubed) 25.3 ml ESV(cubed) 9.6 ml EF(cubed) 62.0 % % IVS thick 19.8 % % LVPW thick 24.0 % LV mass(C)d 87.5 grams LV mass(C)dI 57.9 grams/m\S\2 LV mass(C)s 79.7 grams LV mass(C)sI 52.8 grams/m\S\2 SV(Teich) 18.3 ml SI(Teich) 12.1 ml/m\S\2 SV(cubed) 15.7 ml SI(cubed) 10.4 ml/m\S\2 Ao root diam 3.4 cm Ao root area 9.3 cm\S\2 LA dimension 2.2 cm LA/Ao 0.64 LVOT diam 1.9 cm LVOT area 2.8 cm\S\2 Doppler Measurements and Calculations MV E max maria fernanda 49.6 cm/sec MV A max maria fernanda 85.2 cm/sec MV E/A 0.58 MV P1/2t max maria fernanda 60.8 cm/sec MV P1/2t 89.5 msec MVA(P1/2t) 2.5 cm\S\2 MV dec slope 198.9 cm/sec\S\2 MV dec time 0.27 sec Ao V2 max 84.7 cm/sec Ao max PG 2.9 mmHg Ao max PG (full) 1.3 mmHg OSVALDO(V,A) 2.1 cm\S\2 OSVALDO(V,D) 2.1 cm\S\2 LV V1 max PG 1.6 mmHg LV V1 max 62.6 cm/sec PA V2 max 77.0 cm/sec PA max PG 2.4 mmHg
[2017-01-26] MEDS ORDERED: LEVALBUTEROL/IPRATROPIUM NEB INH SCH (15:00)
[2017-01-26] MEDS: IPRATROPIUM BROMIDE NEB SOLN 0.02% 2.5 ML VIAL INH SCH ×2 (15:23→21:50)
[2017-01-26] MEDS: LEVALBUTEROL 0.63MG/3 ML NEB INH SCH ×2 (15:23→21:50)
[2017-01-26] MEDS ORDERED: MoRPHine SULFATE 2 MG/ML CARP IV PRN (19:45)
[2017-01-26] MEDS ORDERED: ENOXAPARIN 40 MG/0.4 ML SYR SC SCH (20:00)
[2017-01-26] MEDS: HEPARIN SOD 5000 UNIT/0.5 ML CARP SQ SCH (22:00)
[2017-01-27] VITALS (10 sets, daily range): BP systolic 112–139; BP diastolic 52–84; PULSE 67–80; TEMP 36.6–36.8; O2SAT 94–98
[2017-01-27] MEDS: LEVALBUTEROL 0.63MG/3 ML NEB INH SCH ×4 (02:35→19:35)
[2017-01-27] MEDS: IPRATROPIUM BROMIDE NEB SOLN 0.02% 2.5 ML VIAL INH SCH ×4 (02:35→19:35)
[2017-01-27] MEDS: HEPARIN SOD 5000 UNIT/0.5 ML CARP SQ SCH ×3 (06:33→21:29)
[2017-01-27] MEDS: ONDANSETRON INJ 2 MG/ML 2 ML VIAL IV PRN ×2 (06:58→15:22)
--- NOTE | 2017-01-27 07:22 | Family Medicine Progress Note ---
Progress Note Date of Service Jan 27, 2017. Subjective Pt evaluation today including: conversation w/ patient, physical exam, chart review, lab review Patient hard of hearing, so need to raise volume of voice to communicate. Mid responses she pauses and either forgets to anser or refuses too. After repeatedly asking, she complains she still has a headache, that was temporarily relieved with naproxen. She otherwise denies pain or discomfort including CP, SOB, back pain, abdominal pain. When offered other analgesia for her headache, patient declines. Explained that she could let us know if the pain worsened or she changed her mind. Family arrived at bedside letter and it was confirmed that patient was aware of tests/results/management thus far. They were most concerned about determining cause of her headache, and agreeable to sign release of records for Head CT done in [place] a month ago. Constitutional: No fever Eyes: + problem reported (Persistent headache around forhead and periorbital region), No worsening of vision Respiratory: No shortness of breath Cardiovascular: No chest pain Abdomen: No pain Objective Vital Signs Date Time Temp Pulse Resp B/P Pulse Ox O2 Delivery O2 Flow Rate FiO2 01/27/17 04:00 95 Room Air 01/27/17 03:54 36.6 71 18 122/84 95 Room Air 01/27/17 02:35 68 18 95 Room Air 01/27/17 00:01 97 Room Air 01/26/17 23:09 36.6 60 17 97/80 97 Room Air 01/26/17 21:57 64 18 94 Room Air 01/26/17 20:00 Room Air 01/26/17 19:22 36.7 64 18 133/67 96 Room Air 01/26/17 15:23 68 24 95 Room Air 01/26/17 15:21 93 Room Air 01/26/17 15:19 36.9 66 22 105/74 94 Room Air 01/26/17 11:30 95 Room Air 01/26/17 11:30 36.7 84 130/57 96 Room Air 01/26/17 08:00 Room Air 01/26/17 08:00 83 20 151/65 Physical Exam General Appearance: no apparent distress, + thin ENT: + pertinent finding (Hard of hearing) Neck: supple Respiratory/Chest: normal breath sounds, no respiratory distress, no accessory muscle use, + rhonchi Cardiovascular: regular rate, rhythm, no murmur Abdomen: normal bowel sounds, non tender, soft, + pertinent finding (urostomy bag in situ) Extremities: no pedal edema, no calf tenderness Neurologic/Psychiatric: alert, + disoriented Skin: normal color, warm/dry, no rash Laboratory Results Results Past 24 Hours Test 01/26/17 20:10 01/27/17 09:39 Range/Units Troponin I < 0.015 0-0.045 ng/ml Arterial Blood pH 7.41 7.35-7.45 Arterial Blood Partial Pressure CO2 37 35-46 mmHg Arterial Blood Partial Pressure O2 78 80-95 mm/Hg Arterial Blood HCO3 23 19-24 mmol/L Arterial Blood Oxygen Saturation 95.5 90-95 % Arterial Blood Base Excess -1.0 -9-1.8 mEq/L Arterial Blood Gas Delivery ROOM AIR Anuj Test POS POS Assessment and Plan 81 year old female with history of bladder cancer s/p resection who presents with 3 month history of fatigue, weakness, vomiting, headaches and significant weight loss. Imaging reveals lung mass, pulm nodules, lesions in spine and liver , concerning for primary lung cancer with metastases. Lung mass - likely primary malignancy with metastases - Pulm consulted - recs appreciated. For bronchoscopy Sunday - Heme/onc consulted - recs appreciated - Pain management: PRN Tylenol, Naproxen, Morphine Headache - ongoing symptom x 2 months - Requested recent CT scan results from [facility] - non-contrast, no abnormalities seen - MRI brain with contrast to assess for SCALE OPERATOR metastases - positive for mets, Decadron IV 4mg q6h commenced A.fib - unsure if new or pre-existing but undiagnosed. Trop x 3 negative. TSH WNL. Echo showed grade I diastolic dysfunction. [id number] score: 3 - 30 minute discussion re: anticoagulation had with patient's daughter (POA) with risks and benefits outlined. Patients questions and concerns were addressed in detail and to her satisfaction. Decision re: anticoagulation pending. COPD - Continue nebulizer therapy UTI - urine collected from urostomy bag. Urine culture grew coagulase (-) staph and strep species - Antibiotic regimen changed to IV Zosyn to cover likely organisms - Trace culture sensitivities and modify antibiotics as necessary Hypothyroidism - Continue levothyroxine DVT prophylaxis - Heparin 5000 units SC Code - Patient is agreeable to chest compressions and defibrillation but NO ventilation. Resident Physician Supervision Note: I was present with Dr. Almaraz during the history and exam. I discussed the case with the resident and agree with the findings and plan as documented in the note. 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 Agree with addition of IV Decadron; medical oncology notes appreciated. Documented By: Gage Mitchell Continued [facility] stay due to: multiple IV medications needed, other Discharge planning: uncertain Resident Tracking Resident Involvement: Resident Care Provided Care Provided: Adult Hospital Medicine
[2017-01-27] MEDS: LEVOTHYROXINE 150 MCG TAB PO SCH (07:55)
[2017-01-27 09:56] LABS: ARTERIAL BLD GAS O2 SATURATION 95.5 % (90-95); ARTERIAL BLOOD GAS HCO3 23 mmol/L (19-24); ARTERIAL BLOOD GAS PO2 78 mm/Hg (80-95); ARTERIAL BLOOD GAS pH 7.41 (7.35-7.45)
[2017-01-27 09:58] LABS: ALLEN TEST POS (POS); O2 ADMINISTRATION ROOM AIR
--- NOTE | 2017-01-27 10:55 | PULMONARY PROGRESS NOTE ---
DATE: 01/27/2017 DATE: 01/27/2017. TIME: 9:50 a.m. SUBJECTIVE: The patient remains a poor historian. She tells me that she vomited this morning. I do not know if that is confirmed or not. She denies shortness of breath. She denies much cough. The patient remains very hard of hearing and somewhat difficult to communicate with because of this. I did not receive a call yesterday that her family was available to speak to me. Her daughter, Sharona, was in this morning already as per nursing. OBJECTIVE: GENERAL: The patient appears comfortable and in no distress. VITAL SIGNS: Temperature is 36.6. She has not had any significant fevers. HEAD, EYES, EARS, NOSE, AND THROAT: No lymph nodes were palpable. NECK: Veins were not significantly distended. HEART: Rate was 83 per minute. Frequent extrasystoles were heard. LUNGS: Lung sepulveda revealed diminished breath sounds. She was not wheezing as she had been yesterday. Oxygen saturation on room air is 95%. ABDOMEN: Inspection of the abdomen reveals her urostomy bag. Bowel sounds were present. There was no tenderness to palpation. EXTREMITIES: Showed no cyanosis, clubbing or edema. LABORATORY DATA: Blood gas for today is pending. Troponins have been negative x3. Coags were normal. IMPRESSIONS: 1. Right lower lobe mass -- most likely primary bronchogenic carcinoma. 2. Right upper lobe nodule 6 mm. 3. Possible bone METS and liver mets. 4. Chronic obstructive pulmonary disease. 5. Nicotine addiction. 6. History of bladder cancer. COMMENTS AND RECOMMENDATIONS: I believe the patient is a candidate for bronchoscopy. This needs to be discussed however with the family. I have discussed with the patient, but I am not sure she understands. She has been hemodynamically stable. I am hoping to be able to reach her daughter, Sharona by phone if possible today. I would continue with the nebulizer treatments as ordered. Urine culture shows coag negative staph streptococcus species. Will defer this to the hospitalist team.
[2017-01-27] MEDS ORDERED: HYDROmorphone INJ 1 MG/ML SYR IV PRN (13:00)
--- NOTE | 2017-01-27 13:51 | ONCOLOGY CONSULTATION ---
DATE OF CONSULTATION: 01/27/2017 DATE OF CONSULTATION: 01/27/2017. REASON FOR CONSULTATION: Suspected metastatic lung cancer. HISTORY OF PRESENT ILLNESS: Jolene is a pleasant 81-year-old female patient with a remote history of bladder cancer status post cystectomy and urostomy presents with a 3-month history of a declining performance status. The patient is awake and alert, family members present imparts significant weight loss; however, she did not quantify exactly how much weight loss but her appetite is diminished. She also imparts generalized weakness, fatigue and bifrontal headaches. She has had several bad days where dizziness would promote nausea with vomiting. She apparently had a fall episode at home and hit the back of her head on the toilet, again attributable to dizziness. Workup in the Emergency Room included CT scan of the chest, abdomen and pelvis with contrast. CT scan of the chest reveals a very large 9.5 x 5.7 x 3.6 cm mass abnormality within the medial aspect of the right lower lobe. There are several scattered pulmonary nodules also noted in the regional lymphadenopathy. Within the abdomen and pelvis, a 5.4 cm mass-like process is identified in the lower right paravertebral region with associated sclerosis of T12. The rest of the findings are otherwise nonspecific. Primary service is requesting assistance in establishing a diagnosis. With the patient's past history of smoking and bladder cancer certainly there is a concern for metastatic bladder cancer, however her radiographic presentation strongly suggests metastatic lung cancer. PAST MEDICAL HISTORY: Again, positive for bladder cancer, hypothyroidism. MEDICATIONS: Levothyroxine. ALLERGIES: IV CONTRAST AND CORTICOSTEROIDS. SOCIAL HISTORY: The patient is a half pack a day smoker which she has done for many years. She is , retired. Occasional alcohol use. FAMILY HISTORY: Noncontributory. REVIEW OF SYSTEMS: Positive for anorexia, weight loss. No fevers, chills or night sweats reported. SKIN: No history of dermatoses. However, does have several seborrheic keratoses on her back. HEAD, EYES, EARS, NOSE, AND THROAT: Positive for bifrontal headache. No visual or hearing deficits. No sinus symptoms, sore throat or dysphagia. She is edentulous. NECK AND LYMPHADENOPATHY: No history of lymphoproliferative disorder or palpable lymphadenopathy. CARDIAC: No coronary artery disease by history. No current angina or palpitations. PULMONARY: No COPD by history. She denies cough, hemoptysis, shortness of breath or dyspnea on exertion. GASTROINTESTINAL: Positive for nausea and vomiting. Negative for abdominal pain. No constipation, hematochezia or melena reported. GENITOURINARY: Again, history of bladder cancer status post cystectomy and urostomy. ENDOCRINE: Positive for hypothyroidism. PSYCHIATRIC: Negative for anxiety, depression or psychoses. NEUROLOGIC: Negative for seizure, stroke, again positive for persistent bifrontal headaches extending couple of months. HEMATOLOGIC: Negative for anemia, thrombophilia or bleeding diathesis. PHYSICAL EXAMINATION: GENERAL: Very pleasant, cachectic appearing 81-year-old female patient hard of hearing but answers questions appropriately, in no acute distress. VITAL SIGNS: Temperature 36.7, pulse 69, respiration 16, blood pressure 112/52. SKIN: Again several seborrheic keratoses but otherwise no rash, petechiae or ecchymosis. HEAD, EYES, EARS, NOSE, AND THROAT: Head is atraumatic, normocephalic. EYES: PERRLA, EOMI. Sclerae nonicteric. No conjunctival injection. Nares are patent without rhinorrhea or discharge. Throat clear. Tongue midline. Mucous membranes are moist. The patient is edentulous. NECK: Supple without JVD or thyromegaly. LYMPHADENOPATHY: No cervical, supraclavicular, axillary or palpable nodes. HEART: Regular rate and rhythm. LUNGS: Diminished breath sounds in the lower quadrants posteriorly. She has decent air entry, specifically in the right upper lobe. No rales or rhonchi appreciated. ABDOMEN: Soft, nontender, nondistended without palpable hepatosplenomegaly. Bowel sounds are active. No rigidity or guarding. No palpable hepatosplenomegaly. EXTREMITIES: Musculoskeletal strength and pulses are equal. No clubbing, cyanosis or edema otherwise. NEUROLOGICAL: She is awake, alert, oriented x3. Cranial nerves II-XII are intact. No gross motor or sensory deficits are noted. LABORATORY DATA: WBC count 8650, hemoglobin 13.8, platelet count 248,000. Sodium 139, potassium 4.2, chloride 105, carbon dioxide 26, BUN 38, creatinine 0.92. LFTs are otherwise unremarkable. RADIOGRAPHIC DATA: The findings as described in the HPI and both CT scan of the chest, abdomen and pelvis. IMPRESSION: 1. Metastatic disease, primary unknown. Suspect lung. 2. Bifrontal headaches. 3. Anorexia/weight loss. 4. Hypothyroidism. PLAN: Jolene is a pleasant 81-year-old female patient who was admitted to [facility] in general clinical decline. She clearly admits to a steady decline over the past several months including occasional bouts of dizziness with nausea and vomiting. She has lost considerable weight and her appetite remains poor. Based on radiographic evidence her presentation is highly suspicious for metastatic lung cancer. However, metastatic bladder cancer is not exclusively ruled out. The prolonged bifrontal headaches are certainly concerning for central nervous system metastatic disease and will pursue MRI of the brain with contrast. Pulmonary has been consulted and I am not sure if they will approach biopsy via bronchoscopy. Certainly the lesion is large enough CT guidance would be effective in obtaining diagnosis. Also, the finding at the T12 is troubling. Unfortunately, Jolene is not experiencing pain, but at some point may need to incorporate palliative radiation therapy. I will continue to follow with Jolene during her hospital stay. We will make formal recommendations once diagnosis is confirmed. Thank you very much for allowing me to participate in her care. If you have any questions or concerns, feel free to contact me at any time. FRANCES
[2017-01-27] MEDS ORDERED: HYDROmorphone INJ 2 MG/ML SYR/VIAL IV PRN (14:00)
[2017-01-27] MEDS ORDERED: HYDROmorphone INJ 0.5 MG/0.5 ML SYR IV PRN (14:00)
[2017-01-27] MEDS ORDERED: GADAVIST IV PRN (15:15)
[2017-01-27] MEDS: SODIUM CHLORIDE 0.9% 1000ML 1,000 ML IV SCH (15:29)
--- NOTE | 2017-01-27 15:47 | DIAGNOSTIC IMAGING REPORT ---
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 TECHNIQUE: Utilizing a 1.5 Yvonne magnet and dedicated coil, multiplanar, multiecho imaging of the brain was performed pre and postcontrast administration. IV administration of 5 mL of Gadavist contrast was uneventful. FINDINGS: There are innumerable infratentorial and supratentorial enhancing lesions consistent with metastatic disease. Many of these lesions are ring-enhancing. There is a 1.1 cm lesion within the vermis and a 1 cm lesion within the left temporal lobe. These represent the largest lesions. There is mild associated vasogenic edema. These were not evident on prior head CT due to their size. There is a 3.2 x 1.2 cm gyriform enhancing focus within the left parietal lobe. This exam is mildly compromised by motion artifact. There is no acute intracranial hemorrhage, midline shift or mass effect. Periventricular white matter T2 hyperintensity suggest small vessel disease. Several small subtle calvarial lesions shown best on coronal FLAIR image could reflect calvarial metastases. IMPRESSION: 1. Innumerable small enhancing lesions consistent with extensive metastases. Mild associated vasogenic edema. The majority of these lesions are parenchymal. However, several leptomeningeal metastases may be present. 2. 3.2 x 1.2 cm gyriform enhancing focus within the left parietal lobe. This could reflect a subacute infarct or leptomeningeal carcinomatosis. 3. Several small suspected calvarial metastases. Electronically signed by: Patricio Malave M.D. 01/27/2017 3:45 PM Dictated Date/Time: 01/27/2017 3:37 PM
[2017-01-27] MEDS ORDERED: PIPERACILL/TAZOBAC CONSULT ACTIVE PRN (16:15)
[2017-01-27] MEDS ORDERED: PIPERACILL/TAZOBAC IV 3.375 GM in DEXTROSE 5% 100ML IV ONE (16:15)
[2017-01-27] MEDS: DEXAMETHASONE INJ 4 MG in SYRINGE 0 ML IV SCH ×2 (19:00→23:22)
[2017-01-27] MEDS: PIPERACILL/TAZOBAC IV 3.375 GM in DEXTROSE 5% 100ML 100 ML IV SCH (21:25)
[2017-01-28] VITALS (8 sets, daily range): BP systolic 110–160; BP diastolic 67–89; PULSE 61–88; TEMP 36.3–36.8; O2SAT 94–97
[2017-01-28] MEDS: IPRATROPIUM BROMIDE NEB SOLN 0.02% 2.5 ML VIAL INH SCH ×4 (02:45→21:00)
[2017-01-28] MEDS: LEVALBUTEROL 0.63MG/3 ML NEB INH SCH ×4 (02:45→21:00)
[2017-01-28] MEDS: SODIUM CHLORIDE 0.9% 1000ML 1,000 ML IV SCH ×2 (04:03→18:12)
[2017-01-28] MEDS: DEXAMETHASONE INJ 4 MG in SYRINGE 0 ML IV SCH ×3 (05:16→18:13)
[2017-01-28] MEDS: LEVOTHYROXINE 150 MCG TAB PO SCH (05:17)
[2017-01-28] MEDS: PIPERACILL/TAZOBAC IV 3.375 GM in DEXTROSE 5% 100ML 100 ML IV SCH (05:17)
[2017-01-28] MEDS: HEPARIN SOD 5000 UNIT/0.5 ML CARP SQ SCH ×3 (05:22→20:54)
--- NOTE | 2017-01-28 07:36 | Family Medicine Progress Note ---
Progress Note Date of Service Jan 28, 2017. Subjective Pt evaluation today including: conversation w/ patient, physical exam, chart review, lab review Patient hard of hearing, so need to raise volume of voice and direct communication to her left ear. Patient says that her headache isn't as bad as it was yesterday. However she has been having increased nausea and vomiting this morning. She otherwise denies pain or discomfort including CP, SOB, back pain, abdominal pain. She was relatively more chatty this morning, and discussed her dogs at home today. Constitutional: No fever, No sweats Respiratory: No cough, No shortness of breath Cardiovascular: No chest pain, No edema, No palpitations Abdomen: + nausea, + vomiting, No pain Female : + problem reported (Urostomy bag shows cloudy urine) Objective Vital Signs Date Time Temp Pulse Resp B/P Pulse Ox O2 Delivery O2 Flow Rate FiO2 01/28/17 04:00 Room Air 01/28/17 03:51 36.8 71 18 115/69 94 Room Air 01/28/17 00:00 36.8 88 18 110/67 95 Room Air 01/28/17 00:00 Room Air 01/27/17 20:00 Room Air 01/27/17 19:38 36.6 67 16 120/60 94 Room Air 01/27/17 19:35 78 18 98 Room Air 01/27/17 16:05 Room Air 01/27/17 14:07 80 18 98 Room Air 01/27/17 12:05 Room Air 01/27/17 11:35 36.7 69 16 112/52 96 01/27/17 08:05 Room Air Physical Exam General Appearance: WD/WN, + mild distress Eyes: normal inspection ENT: + pertinent finding (Hard of hearing) Neck: supple Respiratory/Chest: no respiratory distress, no accessory muscle use, + decreased breath sounds Cardiovascular: regular rate, rhythm, no murmur Abdomen: normal bowel sounds, non tender, soft Extremities: no pedal edema, no calf tenderness Neurologic/Psychiatric: alert, normal mood/affect, oriented x 3 Skin: normal color, warm/dry, no rash Laboratory Results No new labs today Assessment and Plan 81 year old female with history of bladder cancer s/p resection who presents with 3 month history of fatigue, weakness, headaches, vomiting, and significant weight loss. Imaging reveals lung mass, pulm nodules, lesions in spine and liver , concerning for primary lung cancer with metastases. MRI confirms brain mets Lung mass + hepatic/spinal/brain lesions - likely primary lung malignancy with metastases. Patient and family aware of findings on scans thus far. - Pulm consulted - recs appreciated. For bronchoscopy Sunday - Heme/onc consulted - recs appreciated - Pain management: PRN Tylenol, Naproxen, Morphine, Hydromorphone - Symptom management: PRN Zofran (dosage increased today) - Decadron IV 4mg q6h A.fib - unsure if new or pre-existing but undiagnosed. Trop x 3 negative. TSH WNL. Echo showed grade I diastolic dysfunction. [id number] score: 3. Anticoagulation discussed with patient's daughter (POA) with risks and benefits outlined. - Decision re: anticoagulation pending. COPD - Nebulizer therapy UTI - urine collected from urostomy bag. Urine culture grew coagulase (-) staph and strep species. Antibiotics switched to IV vancomycin in view of staph oxacillin resistance, as discussed with pharmacist Caitlin. Vanc chosen to cover possible strep enterococcus infection. - Antibiotic regimen changed to IV vancomycin (Day 1 of 10) - Sensitivities of strep species pending, modify antibiotics upon results as necessary Hypothyroidism - Continue levothyroxine DVT prophylaxis - Heparin 5000 units q12h SC Code - Patient is agreeable to chest compressions and defibrillation but NO ventilation. Resident Physician Supervision Note: I was present with Dr. Almaraz during the history and exam. I discussed the case with the resident and agree with the findings and plan as documented in the note. Any exceptions or clarifications are listed here: [None] Documented By: Gage Mitchell Continued [facility] stay due to: multiple IV medications needed Discharge planning: uncertain Resident Tracking Resident Involvement: Resident Care Provided Care Provided: Adult Hospital Medicine
[2017-01-28] MEDS: ONDANSETRON INJ 2 MG/ML 2 ML VIAL IV PRN (08:23)
[2017-01-28] MEDS ORDERED: METOCLOPRAMIDE HCL INJ 5 MG/ML 2 ML VIAL IV PRN (11:00)
[2017-01-28] MEDS ORDERED: METOCLOPRAMIDE HCL INJ 5 MG/ML 2 ML VIAL IV ONE (11:30)
--- NOTE | 2017-01-28 12:10 | Pharmacy Progress Note ---
Pharmacy Antibiotic Consult Date of Service: Jan 28, 2017. Pharmacy Dosing Scope Pharmacy is consulted to initiate vancomycin IV dosing therapy, order appropriate labs and adjust drug dose/frequency. Subjective The patient is a 81 year old female admitted on Jan 25, 2017 at 22:37 with generalized weakness and fatigue. She has a history of bladder cancer s/p bladder removal and urostomy tubes. Objective Height (Feet): 5 Height (Inches): 5.00 Weight (Kilograms): 52.600 Micro Results: RUN DATE: 01/28/17 [facility] LAB PAGE 1 RUN TIME: 724 Specimen Inquiry PATIENT: JASSON CORTEZ LOC: [facility] U # : [id number] AGE/SX: 81/F ROOM: E209 REG : 01/25/[address]: Gage Mitchell D.O : 1935 BED: 1 DIS : STATUS: ADM IN TLOC: SPEC #: [id number] ARINA: 01/25/17 STATUS: RES REQ #: [id number] RECD: 01/25/[address]: Lynnette Rowley DO SOURCE: UR, CC ENTR: 01/25/17 [facility] DR: Jm Bender D.O. [facility]: ORDERED: CULTURE URCLEAN Procedure Result Verified Site URINE CULTURE Preliminary 01/28/17 Organism 1 COAG NEG STAPH NOT SAPROPHYTIC COLONY COUNT >100,000 CFU/ml SENS SENSITIVITY TO FOLLOW Organism 2 STREPTOCOCCUS SPECIES COLONY COUNT >100,000 CFU/ml SENS SENSITIVITY TO FOLLOW 1. COAG NEG STAPH NOT SAPROPHYTIC Target Route Dose RX AB Cost M.I.C. IQ ------ ----- ------ -- ------ -------- - ------ TRIMET/SULFA R > * OXACILLIN R >2 VANCOMYCIN S 2 TETRACYCLINE S <=4 DAPTOMYCIN S <=0.5 NITROFURANTOIN S <=32 S = SENSITIVE I = INTERMEDIATE R = RESISTANT Assessment & Plan Loading dose: vancomycin 1150 mg (20 mg/kg) IV X 1 dose then: Random level has been ordered for: Goal peak level estimate: between 35 - 40 mcg/mL. Goal trough level estimate: between 10 - 15 mcg/mL. (indication UTI) Pharmacy will continue to follow and will adjust dose/frequency as necessary. Thank you
[2017-01-28] MEDS ORDERED: VANCOMYCIN CONSULT ACTIVE PRN (12:15)
[2017-01-28] MEDS ORDERED: VANCOMYCIN INJ 1,050 MG in SODIUM CHLORIDE 0.9% 250ML 250 ML IV ONE (12:30)
--- NOTE | 2017-01-28 14:22 | PULMONARY PROGRESS NOTE ---
DATE: 01/28/2017 TIME: 12:45 p.m. SUBJECTIVE: The patient complains of nausea and vomiting today. Unfortunately, her nurse is off the floor. I could not confirm the vomiting. The patient states the nurses are aware of this and have seen the vomitus. She denies cough or shortness of breath. There has been no other change in her status. I did speak with her daughter, Jenae yesterday by phone. Jenae is the patient's POA. She feels that her mother understands the situation and is able to make her own decision about bronchoscopy. My conversation with the patient indicates she is understanding that she has a spot in her lung that needs to be biopsied. She is, in principle, in agreement with doing a scope. OBJECTIVE: GENERAL: The patient appears in no distress. She remains afebrile. VITAL SIGNS: Most recent temperature was 36.7. Heart rate currently is 55 per minute. The rhythm is regular. Blood pressure is 150/79. NECK: No lymph nodes were palpable. CHEST: Respiratory rate is 16 breaths per minute. The breath sounds are diminished. No active wheezing was heard. Saturation on room air is 94%. ABDOMEN: Soft. Bowel sounds were present. There was no tenderness to palpation. EXTREMITIES: Showed no cyanosis, clubbing or edema. IMPRESSIONS: 1. Right lower lobe mass. 2. Right upper lobe 6 mm nodule. 3. Possible liver and bone metastasis. 4. Chronic obstructive pulmonary disease. 5. Nicotine addiction. 6. Bladder cancer by history. COMMENTS AND RECOMMENDATIONS: Bronchoscopy is advised. The patient tentatively is agreeable. We may have to see how her GI symptoms are tomorrow. Dr. Macias will be seeing the patient. I will make her n.p.o. He will speak with the patient about permission tomorrow. If the scope cannot be done tomorrow for scheduling reasons, I would think it definitely could be done by Sunday.
--- NOTE | 2017-01-28 14:31 | HEME/ONC PROGRESS NOTE ---
DATE: 01/28/2017 DIAGNOSES: 1. Suspected metastatic lung cancer. 2. Brain metastatic disease. 3. Anorexia and weight loss. 4. Bifrontal headaches. HOSPITAL COURSE: Jolene is a pleasant 81-year-old female patient who was admitted recently with a 3-month history of declining performance status. During my consultative visit, Jolene reported a prolonged bifrontal headache and family admitted to gait disturbance. MRI of the brain was performed confirming diffuse intracerebral metastatic disease. Jolene was started on IV dexamethasone. I will contact radiation oncology for routine consultation. Unfortunately, biopsy is yet to be obtained and therefore I do not have a specific diagnosis, but based on radiographic presentation, my guess would be either a small or nonsmall cell lung cancer. Clinically, Jolene is still complaining of headache and has had significant nausea and vomiting today. Primary service increased her dose and frequency of Zofran. PHYSICAL EXAMINATION: GENERAL: She is in no acute distress, answers questions appropriately. VITAL SIGNS: Temperature 36.7, pulse 61, respiration rate 16, blood pressure 150/79. SKIN: Without rash or lesion. HEENT: Oral mucosa without erythema or ulceration. HEART: Regular rate and rhythm. No clicks, rubs or murmurs. LUNGS: Clear. Breath sounds are distant. ABDOMEN: Soft, nontender. EXTREMITIES: No clubbing, cyanosis or edema. NEUROLOGIC: Focally intact. LABORATORY DATA: Pending. RADIOGRAPHIC DATA: MRI of the brain - innumerable small enhancing lesions consistent with extensive metastasis, mild associated vasogenic edema, majority of these lesions are parenchymal; however, several leptomeningeal metastases may be present. A 3.2 x 1.2 ____ enhancing focus within the left parietal lobe, could reflect either a subacute infarct or leptomeningeal carcinomatosis. IMPRESSION: 1. Brain mets. 2. Metastatic carcinoma, primary unknown, suspect lung. 3. Anorexia and weight loss. 4. Nausea and vomiting. PLAN: Jolene was seen and examined at bedside today. According to nursing and Jolene herself, her day has been somewhat rough, manifested by increased nausea and vomiting. Increase dosing and frequency of Zofran has been incorporated. She has been started on dexamethasone intravenously. Will consult radiation oncology, who will most likely see her tomorrow. Await biopsy and will arrange for outpatient followup to discuss diagnosis, prognosis and treatment options. Nothing further to add today. We will continue to periodically follow with her during her hospital stay. Thank you again for allowing us to participate in her care.
[2017-01-28] MEDS ORDERED: ONDANSETRON INJ 8 MG in DEXTROSE 5% 50ML 50 ML IV PRN (15:15)
[2017-01-28] MEDS ORDERED: ONDANSETRON INJ 2 MG/ML 2 ML VIAL IV PRN (16:30)
--- NOTE | 2017-01-28 22:11 | Pharmacy Progress Note ---
Pharmacy Antibiotic Prog Note Date of Service: Jan 28, 2017. Subjective: The patient is currently received Vancomycin 1050 mg IV x 1 dose this afternoon. The patient is currently on day # 1 of Vancomycin IV therapy. Objective: Height (Feet): 5 Height (Inches): 5.00 Weight (Kilograms): 52.600 Levels: Item Value Date Time Random Vancomycin Level 14.7 mcg/ml 01/28/17 2000 Micro Results: Item Value Date Time Urine Culture - Final Complete 01/25/17 1800 Urine , Clean Catch Coag Neg Staph Not Saprophytic RUN DATE: 01/28/17 [facility] PAGE 1 RUN TIME: 1235 Specimen Inquiry PATIENT: JASSON CORTEZ LOC: [facility] U # : [id number] AGE/SX: 81/F ROOM: 09 REG : 01/25/[address]: Gage Mitchell D.O : 1935 BED: 1 DIS : STATUS: ADM IN TLOC: SPEC #: [id number] ARINA: 01/25/17 STATUS: COMP REQ #: [id number] RECD: 01/25/17-[address]: Lynnette Rowley DO SOURCE: UR, CC ENTR: 01/25/17-[address] [facility] [address]: Jm Bender D.O. SPDESC: ORDERED: CULTURE URCLEAN Procedure Result Verified Site URINE CULTURE Final 01/28/17-1235 Organism 1 COAG NEG STAPH NOT SAPROPHYTIC COLONY COUNT >100,000 CFU/ml SENS SENSITIVITY TO FOLLOW Organism 2 ENTEROCOCCUS FAECALIS COLONY COUNT >100,000 CFU/ml SENS SENSITIVITY TO FOLLOW CNSNS E FAECALIS M.I.C. RX M.I.C. RX --------- ------ --------- ------ TRIMET/SULFA > R AMPICILLIN <=2 S * OXACILLIN >2 R GENT SYNERGY >500 R VANCOMYCIN 2 S 2 S PENICILLIN 8 S TETRACYCLINE <=4 S CIPROFLOXACIN >2 R LEVOFLOXACIN >4 R DAPTOMYCIN <=0.5 S 1 S NITROFURANTOIN <=32 S <=32 S STREP SYNERGY <=1000 S ENTEROCOCCUS FAECALIS: POSITIVE COMBO 33 Streptomycin Synergy Screen S Gentamicin Synergy Screen R 1. COAG NEG STAPH NOT SAPROPHYTIC Target Route Dose RX AB Cost M.I.C. IQ ------ ----- ------ -- ------ -------- - ------ TRIMET/SULFA R > * OXACILLIN R >2 VANCOMYCIN S 2 TETRACYCLINE S <=4 DAPTOMYCIN S <=0.5 NITROFURANTOIN S <=32 Recent Pertinent Medications: Item Value Date Time Piperacillin Sod/ 115 ml @ 28.75 mls/hr 01/27/17 2200 Tazobactam Sod Q8H/IV 01/28/17 0517 3.375 gm/Dextrose Vancomycin HCl 271 ml @ 125 mls/hr 01/28/17 1230 1050 mg/Sodium NOW ONCE/IV 01/28/17 1339 Chloride Assessment & Plan: Continue Vancomycin 800 mg IV every 24 hours. Goal peak level estimate: between 25 - 40 mcg/mL. Goal trough level estimate: between 12 - 17 mcg/mL. Vancomycin trough level has been ordered for: 01/30/17 prior to the 2200 hours dose Pharmacy will continue to follow and will adjust dose/frequency as necessary. Thank you
[2017-01-28] MEDS: VANCOMYCIN INJ 800 MG in SODIUM CHLORIDE 0.9% 250ML 250 ML IV SCH (22:24)
[2017-01-29] VITALS (18 sets, daily range): BP systolic 127–179; BP diastolic 65–108; PULSE 68–110; TEMP 36.4–36.9; O2SAT 89–100
[2017-01-29] MEDS: DEXAMETHASONE INJ 4 MG in SYRINGE 0 ML IV SCH ×4 (00:07→18:46)
[2017-01-29] MEDS: IPRATROPIUM BROMIDE NEB SOLN 0.02% 2.5 ML VIAL INH SCH ×4 (01:47→19:05)
[2017-01-29] MEDS: LEVALBUTEROL 0.63MG/3 ML NEB INH SCH ×4 (01:48→19:05)
[2017-01-29] MEDS: LEVOTHYROXINE 150 MCG TAB PO SCH (06:00)
[2017-01-29] MEDS: SODIUM CHLORIDE 0.9% 1000ML 1,000 ML IV SCH ×2 (06:28→18:46)
[2017-01-29 07:04] LABS: BASO % 0.1 %; BASO ABS # 0.01 K/uL (0-0.2); COMPLETE YES; HEMATOCRIT 35.3 % (37-47); IG% 0.4 %; LYMPH % 5.2 %; LYMPH ABS # 0.74 K/uL (1.2-3.4); MEAN CELL VOLUME 85.1 fL (80-100); MEAN CORPUSCULAR HEMOGLOBIN 28.2 pg (25-34); MEAN CORPUSCULAR HGB CONC 33.1 g/dl (32-36); MEAN PLATELET VOLUME 11.6 fL (7.4-10.4); MONO % 4.3 %; PLATELET COUNT 219 K/uL (130-400); RED BLOOD COUNT 4.15 M/uL (4.2-5.4); WHITE BLOOD COUNT 14.28 K/uL (4.8-10.8)
[2017-01-29 07:37] LABS: BUN/CREATININE RATIO 24.2 (10-20); CALCIUM 8.8 mg/dl (8.5-10.1); CREATININE 0.8 mg/dl (0.60-1.20); POTASSIUM 3.9 mmol/L (3.5-5.1)
[2017-01-29 07:40] LABS: ALB/GLOB RATIO 0.9 (0.9-2)
[2017-01-29] MEDS ORDERED: FENTANYL CITRATE INJ 50 MCG/1 ML 2 ML VIAL IV ONE ×2 (08:08→13:15)
[2017-01-29] MEDS ORDERED: LIDOCAINE 4% INH SOLN 4 ML BTL ONE (08:08)
[2017-01-29] MEDS ORDERED: MIDAZOLAM HCL 5 MG/ML 1 ML VIAL IV ONE ×2 (08:08→13:15)
[2017-01-29] MEDS ORDERED: LIDOCAINE HCL 2% LOCAL 50ML VIAL INFIL ONE (08:08)
--- NOTE | 2017-01-29 09:40 | Clinical Documentation Query ---
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 Patient reports at least a 3 month history of feeling unwell, experiencing fatigue, weakness, vomiting, and headaches. Weight loss noted in ROS. Oncologic production support consultant notes patient to be "cachectic" and notes "she has lost considerable weight and her appetite remains poor". Acidizer Helper consulted due to a BMI of < 20 Kg/m*m and a Rocky score of 18. She noted patient to have subQ fat loss/muscles wasting, an 8 pound weight loss in one month, and declination of enteral supplements due to nausea. Recommendations included a liberalized diet, MVI with minerals, consideration of an appetite stimulant, daily weights, I/O. In your clinical opinion is this patient being managed for: ( X ) Severe protein-calorie malnutrition ( ) Other explanation of clinical findings (Please Explain) ( ) Unable to determine (Please Define) ( ) Need to Discuss ( ) Not Agree The medical record reflects the following clinical findings, treatment, and risk factors. Clinical Indicators: As above Treatment:liberalized diet, MVI with minerals, consideration of an appetite stimulant, daily weights, I/O. Risk Factors: Lung cancer with hepatic, spinal, and brain metastasis. Malnutrition in Chronic Illness Moderate or Severe Malnutrition defined by 2 of the following 6 criteria: CHARACTERISTICS MODERATE MALNUTRITION SEVERE MALNUTRITION ENERGY INTAKE <75% of estimated energyrequirement for > 1month <75% of estimated energyrequirement for > 1 month WEIGHT LOSS 5%/1 month7.5%/3 ulciej06%/7sobrmr83%/1year >5%/1 month>7.5%/3 months>10%/6months>20%/1year BODY FAT*loss of SQ fat from the orbits, triceps, or fat overlying the ribs MILD SEVERE MUSCLE MASS*muscle wasting at the temples, clavicles, shoulders, interosseous spaces, scapula, thigh, calf MILD SEVERE FLUID ACCUMULATION*localized or generalized edema of the extremities, vulva, scrotum weight loss may be masked by edema MILD SEVERE INKER MACHINE STRENGTH N/A measurably decreased per the device's standards Please clarify and document your clinical opinion in the progress notes and discharge summary. Terms such as "probable", "suspected", "likely", "questionable", "possible", or "still to be ruled out" are acceptable. IF IN AGREEMENT, YOU MUST DOCUMENT ABOVE DIAGNOSTIC STATEMENT IN DAILY PROGRESS NOTES AND DISCHARGE SUMMARY. This document is not part of the patient's record. Thank You, Cyril Villalta, RN [phone]
--- NOTE | 2017-01-29 09:41 | Clinical Documentation Query ---
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 Patient reports at least a 3 month history of feeling unwell, experiencing fatigue, weakness, vomiting, and headaches. Weight loss noted in ROS. Oncologic brand sales consultant notes patient to be "cachectic" and notes "she has lost considerable weight and her appetite remains poor". Weather Reporter consulted due to a BMI of < 20 Kg/m*m and a Rocky score of 18. She noted patient to have subQ fat loss/muscles wasting, an 8 pound weight loss in one month, and declination of enteral supplements due to nausea. Recommendations included a liberalized diet, MVI with minerals, consideration of an appetite stimulant, daily weights, I/O. In your clinical opinion is this patient being managed for: ( x ) Severe protein-calorie malnutrition ( ) Other explanation of clinical findings (Please Explain) ( ) Unable to determine (Please Define) ( ) Need to Discuss ( ) Not Agree The medical record reflects the following clinical findings, treatment, and risk factors. Clinical Indicators: As above Treatment:liberalized diet, MVI with minerals, consideration of an appetite stimulant, daily weights, I/O. Risk Factors: Lung cancer with hepatic, spinal, and brain metastasis. Malnutrition in Chronic Illness Moderate or Severe Malnutrition defined by 2 of the following 6 criteria: CHARACTERISTICS MODERATE MALNUTRITION SEVERE MALNUTRITION ENERGY INTAKE <75% of estimated energyrequirement for > 1month <75% of estimated energyrequirement for > 1 month WEIGHT LOSS 5%/1 month7.5%/3 %/4xbqilw73%/1year >5%/1 month>7.5%/3 months>10%/6months>20%/1year BODY FAT*loss of SQ fat from the orbits, triceps, or fat overlying the ribs MILD SEVERE MUSCLE MASS*muscle wasting at the temples, clavicles, shoulders, interosseous spaces, scapula, thigh, calf MILD SEVERE FLUID ACCUMULATION*localized or generalized edema of the extremities, vulva, scrotum weight loss may be masked by edema MILD SEVERE ELECTRICAL SYSTEMS DRAFTER STRENGTH N/A measurably decreased per the device's standards Please clarify and document your clinical opinion in the progress notes and discharge summary. Terms such as "probable", "suspected", "likely", "questionable", "possible", or "still to be ruled out" are acceptable. IF IN AGREEMENT, YOU MUST DOCUMENT ABOVE DIAGNOSTIC STATEMENT IN DAILY PROGRESS NOTES AND DISCHARGE SUMMARY. This document is not part of the patient's record. Thank You, Cyril Villalta, RN [phone]
[2017-01-29] MEDS ORDERED: NURSING VERBAL MED ORDER ONE (13:00)
--- NOTE | 2017-01-29 13:39 | Radiation Oncology Consult ---
Radiation Oncology Consult Date / Reason Jan 29, 2017. Diagnosis (1) Metastatic cancer to brain of unknown cell type (2) Lung mass History of Present Illness We are seeing the patient in consultation at the request of Dr. Colby Diaz. The patient's daughter was present at bedside during the entire consultation. Ms. Patino is a 81-year-old female with a previous diagnosis of bladder cancer treated with cystectomy. More recently, the patient was having significant weight loss, headaches and nausea and vomiting. The patient was brought to the emergency room and did have imaging studies (documented below) which did reveal a a 9.7 cm irregular mass in the right lower lobe as well as a 2.1 cm hypodense right hepatic lobe lesion. Additionally noted was a 2.4 cm sclerotic lesion within T12 and several enlarged right hilar lymph nodes. The patient did also have an MRI of the brain on 01/27/2017 which revealed widespread metastatic disease. The patient has been evaluated by medical oncology who is recommended a tissue diagnosis prior to making final recommendations. We've been asked to evaluate the patient for consideration of potential radiation therapy to the brain. The patient has been evaluated by pulmonary medicine and they are planning to perform a bronchoscopy to obtain tissue diagnosis. The patient states that she does continue to have some headaches and some blurry vision as well. She denies any other significant focal neurologic deficits. Social History Smoking Status: Current Every Day Smoker Hx Tobacco Use In Past Year?: Yes (1/2 pk per day) Do You Dip or Chew Tobacco: No Hx Alcohol Use: No Hx Substance Use : No Allergies Coded Allergies: Iodinated Diagnostic Agents (Verified Allergy, Unknown, HIVES TO ORAL CONTRAST, 02/06/14) Corticosteroids (Verified Adverse Reaction, Unknown, "CAN'T TAKE HIGH DOSES", 02/06/14) Home Medications Scheduled Levothyroxine Sodium (Synthroid), 150 MCG PO DAILY Scheduled PRN Naproxen Sodium (Aleve), 1 CAP PO UD PRN for Pain Review of Systems Ear/Hearing: Ear Side: Bilateral Hearing Ability: Hard of Hearing Hearing Aid: None Edema: Present?: No Location Body Site Modifier: Bilateral Sexuality-Female: Patient ?: No Pain Management Side: Bilateral Patient Preferred Pain Scale: 0 - 10 Initial Pain Intensity: 0.0 Physical Exam Height: 5 (Feet) 5.00 (Inches) 165.1 (Centimeters) 1.6510 (Meters) Weight: 115 (Pounds) 15.4 (Ounces) 52.600 (Kilograms) 29361.000 (Grams) Date Time Temp Pulse Resp B/P Pulse Ox O2 Delivery O2 Flow Rate FiO2 01/29/17 12:41 87 20 132/66 95 Nasal Cannula 4.0 01/29/17 12:35 80 20 127/65 97 Mask 15.0 01/29/17 12:30 80 20 127/65 97 Mask 15.0 01/29/17 12:25 80 14 138/78 97 Mask 15.0 01/29/17 12:20 84 14 141/76 98 Mask 15.0 01/29/17 12:15 96 18 164/91 98 Mask 15.0 01/29/17 12:10 110 16 174/108 89 Mask 5.0 01/29/17 12:05 88 16 152/104 98 Mask 5.0 01/29/17 12:00 94 20 158/71 100 Mask 5.0 01/29/17 11:55 81 18 159/75 100 Mask 5.0 01/29/17 11:35 68 18 167/85 100 Mask 5.0 01/29/17 10:06 36.5 77 18 165/83 96 Room Air 01/29/17 08:03 36.5 77 18 165/83 96 Room Air 01/29/17 07:30 Room Air 01/29/17 07:09 75 18 95 Room Air 01/29/17 04:00 Room Air 01/29/17 03:49 36.8 100 20 160/93 93 Room Air 01/29/17 00:00 Room Air 01/28/17 23:44 36.7 66 18 160/89 94 Room Air 01/28/17 22:42 36.3 71 18 159/85 97 Room Air 01/28/17 20:00 Room Air 01/28/17 19:27 36.3 71 18 159/85 97 Room Air 01/28/17 16:05 Room Air 01/28/17 15:35 36.3 61 18 154/82 96 Room Air General Appearance: no apparent distress, + cachetic, + thin Head: normocephalic, atraumatic Eyes: normal inspection ENT: normal ENT inspection Neck: supple, no adenopathy Respiratory/Chest: chest non-tender, lungs clear, normal breath sounds, no respiratory distress Cardiovascular: regular rate, rhythm, no edema, no gallop, no JVD, no murmur Neurologic/Psych: director law enforcement II-XII nml as tested, alert, normal mood/affect, oriented x 3, + abnormal cerebellar tests Skin: normal color, warm/dry, no rash Lymphatic: no adenopathy Imaging Imaging Comments MRI OF THE BRAIN WITHOUT AND WITH IV CONTRAST - 01/27/2017 CLINICAL HISTORY: To rule out SALES AGENT PROTECTIVE SERVICE metastases COMPARISON STUDY: Head CT January 25, 2017. TECHNIQUE: Utilizing a 1.5 Yvonne magnet and dedicated coil, multiplanar, multiecho imaging of the brain was performed pre and postcontrast administration. IV administration of 5 mL of Gadavist contrast was uneventful. FINDINGS: There are innumerable infratentorial and supratentorial enhancing lesions consistent with metastatic disease. Many of these lesions are ring-enhancing. There is a 1.1 cm lesion within the vermis and a 1 cm lesion within the left temporal lobe. These represent the largest lesions. There is mild associated vasogenic edema. These were not evident on prior head CT due to their size. There is a 3.2 x 1.2 cm gyriform enhancing focus within the left parietal lobe. This exam is mildly compromised by motion artifact. There is no acute intracranial hemorrhage, midline shift or mass effect. Periventricular white matter T2 hyperintensity suggest small vessel disease. Several small subtle calvarial lesions shown best on coronal FLAIR image could reflect calvarial metastases. IMPRESSION: 1. Innumerable small enhancing lesions consistent with extensive metastases. Mild associated vasogenic edema. The majority of these lesions are parenchymal. However, several leptomeningeal metastases may be present. 2. 3.2 x 1.2 cm gyriform enhancing focus within the left parietal lobe. This could reflect a subacute infarct or leptomeningeal carcinomatosis. 3. Several small suspected calvarial metastases. ABDOMEN AND PELVIS CT WITHOUT CONTRAST - 01/25/2017 CT DOSE: 256.32 mGy.cm HISTORY: Neoplasm look for neoplastic dz./ mets TECHNIQUE: Multiaxial CT images of the abdomen and pelvis were performed without contrast. COMPARISON STUDY: None. FINDINGS: 5 x 4 cm masslike process lower right paravertebral region. This is associated with sclerosis of the T12 vertebral body at its right posterolateral aspect. 8 mm nodular density left lateral costophrenic angle. Lung bases otherwise are considered clear. Possible punctate additional nodular densities right base 2. Small quantify. Multiple hepatic hypodensities the bulk of which are most likely cystic. Several are too small to quantify. Spleen is unremarkable. Pancreas is uniform within limitations of an unenhanced scan. Right kidney is atrophic. There is mild bilateral hydronephrosis. Patient is status post ileal loop diversion. There is single significant increase in fecal material within the rectosigmoid. Postoperative bowel anastomotic changes are present. Bowel pattern in general is nonobstructive nonobstructive. 3.2 cm infrarenal abdominal aortic aneurysm. Degenerative change lumbar spine. Possible small lytic defects left superior iliac crest. Old compression deformities of L1 and L3. Postoperative changes of the soft tissue pelvis. Prior cystectomy IMPRESSION: 1. Right lower thoracic paravertebral soft tissue mass raising possibility of neoplasm.. 2. Hepatic cysts although several are too small to quantify. 3. Additional smaller bibasilar pulmonary nodularity. 4. Probable metastatic focus T12 vertebral body and possibly left superior iliac crest. 5. Nonobstructive bowel pattern. 6. Status post bilateral partial colonic resection with prior cystectomy and ileal loop procedure CT OF THE CHEST WITHOUT IV CONTRAST - 01/25/2017 CLINICAL HISTORY: Abnormal chest radiograph with right hilar fullness. COMPARISON STUDY: Chest radiograph performed earlier today. CT DOSE: 279.70 mGy.cm TECHNIQUE: Axial images of the chest were obtained without IV contrast. Images were reviewed in the axial, sagittal, and coronal planes. IV contrast was not administered for this examination. FINDINGS: The size of the heart is at upper limits of normal. There is no pericardial effusion. Note is made of a 9.5 x 5.7 x 3.6 cm mass-like abnormality within the medial aspect the right lower lobe. This involves the superior segment of the right lower lobe and the medial basilar segment of the right lower lobe. The bronchus to the superior segment may be occluded. There is narrowing with possible occlusion of multiple segmental bronchi within the right lower lobe. This mass-like abnormality is irregular. There is no pneumothorax or pleural effusion. A few scattered pulmonary nodules are noted, including a 6 mm right upper lobe nodule. This is shown on image 77 of 316. A borderline enlarged subcarinal lymph node measures 1 cm short axis diameter. There are several suspected mildly enlarged right hilar lymph nodes which are suboptimally assessed on this unenhanced exam. Note is made of a 2.4 cm area of sclerosis within the T12 vertebral body which extends into the right pedicle. There is associated irregularity the posterior cortex of this vertebral body. Several water attenuation hepatic lesions likely reflect cysts. There is an intermediate attenuation 2.1 cm right hepatic lobe lesion shown on image 52 of 64. A water attenuation lesion arising from the upper pole of the left kidney likely reflects a cyst. There is right renal atrophy. IMPRESSION: 1. 9.5 x 5.7 x 3.6 cm irregular mass-like opacity within the superior segment and medial basilar segment of the right lower lobe which corresponds to the abnormality on prior chest radiograph. This is suggestive of a neoplastic process such as bronchogenic carcinoma. An infectious process could appear similar although neoplasm is favored. Consultation for consideration for bronchoscopy is recommended for tissue sampling 2. A few indeterminate small pulmonary nodules, as described above. 3. 2.1 cm hypodense right hepatic lobe lesion which could be assessed with a contrast-enhanced CT. This could reflect a metastasis. 4. Indeterminate 2.4 cm sclerotic lesion within the T12 vertebral body which extension into the right pedicle and results in irregularity of the posterior cortex. 5. Several suspected enlarged right hilar lymph nodes which are suboptimally assessed on this unenhanced exam. This could reflect billy spread of disease. Assessment & Recommendations Ms. Patino is an 81-year-old female who presents with probable metastatic lung cancer to the brain. The patient is currently symptomatic and does have headaches and has been started on Decadron. The patient has been evaluated by pulmonary medicine and they will plan to perform a bronchoscopy to obtain a tissue diagnosis. The patient has been evaluated by medical oncology who is recommended a tissue diagnosis prior to making final recommendations. We've been asked to evaluate the patient for consideration of potential whole brain radiation therapy. At this point, we would recommend proceeding with a bronchoscopy to obtain a tissue diagnosis as per pulmonary medicine. After confirming the diagnosis, we will recommend proceeding with whole brain radiation therapy for palliation. The patient should then be considered for potential systemic chemotherapy underneath supervision of Dr. Colby Diaz for medical oncology. We will bring the patient down today for CT simulation for treatment planning; we will start radiation therapy once we have a confirmation regarding the diagnosis. We explained the indications, alternatives, benefits, risks and side effects of external beam radiation therapy to the brain. We explain the most common side effects including but not limited to skin erythema, skin break down, hair loss, radiation necrosis, fatigue, short-term memory loss, decreased neurocognitive performance, cerebral edema, hearing loss, damage to cochlea structures, seizures, loss of sensory and or motor function. We explained the treatment planning process and what to expect before during and after treatment. The patient understands and would be willing to consent to treatment. The patient and family had multiple questions which were answered to their full satisfaction. Thank you for allowing us to participate in the care of this patient. This chart was completed in part utilizing [employer] Speech Voice Recognition software. Attempts were made to minimize the grammatical errors, random word insertions, pronoun errors and incomplete sentences. Any formal questions or concerns about the content, text or information contained within the body of this dictation should be directly addressed to the provider for clarification. Karen Castro MD Department of Radiation Oncology [facility] Total Time In Consultation I spent 30 minutes examining and counseling the patient. I spent 15 minutes completing this note. Copy To Shade Salguero DO; Colby Diaz D.O.; Pa Garcia MD; Elton Macias MD
--- NOTE | 2017-01-29 13:59 | Procedure Note ---
Post-Moderate Sedation Plan General Date of Moderate Sedation Jan 29, 2017. Vital Signs: Vital Signs Past 12 Hours Date Time Temp Pulse Resp B/P Pulse Ox O2 Delivery O2 Flow Rate FiO2 01/29/17 12:41 87 20 132/66 95 Nasal Cannula 4.0 01/29/17 12:35 80 20 127/65 97 Mask 15.0 01/29/17 12:30 80 20 127/65 97 Mask 15.0 01/29/17 12:25 80 14 138/78 97 Mask 15.0 01/29/17 12:20 84 14 141/76 98 Mask 15.0 01/29/17 12:15 96 18 164/91 98 Mask 15.0 01/29/17 12:10 110 16 174/108 89 Mask 5.0 01/29/17 12:05 88 16 152/104 98 Mask 5.0 01/29/17 12:00 94 20 158/71 100 Mask 5.0 01/29/17 11:55 81 18 159/75 100 Mask 5.0 01/29/17 11:35 68 18 167/85 100 Mask 5.0 01/29/17 11:00 Mask 01/29/17 10:06 36.5 77 18 165/83 96 Room Air 01/29/17 08:03 36.5 77 18 165/83 96 Room Air 01/29/17 07:30 Room Air 01/29/17 07:09 75 18 95 Room Air 01/29/17 04:00 Room Air 01/29/17 03:49 36.8 100 20 160/93 93 Room Air Review - Discharge Plan Post Moderate Sedation Plan: On clinical assessment, the patient appears to have tolerated the conscious sedation without complications. Patient is recovering as anticipated. Patient will return to her bed on telemetry.
--- NOTE | 2017-01-29 14:04 | Bronchoscopy Procedure Note ---
Bronchoscopy Procedure Note Procedure: Bronchoscopy, bronchial alveolar lavage, intrabronchial biopsies, conscious sedation Consent: Obtained to the patient placed in the chart Preprocedural diagnosis: Lung mass/carcinoma Postprocedural diagnosis: Lung mass/carcinoma Beginning time: 1157 In the meantime: 1222 Total time: 25 minutes Analgesia: 2% liquid lidocaine: Via nebulizer 4% gel lidocaine: Via right naris 2% liquid lidocaine: Via bronchoscopy Sedation: Versed IV: 3 mg Fentanyl IV: 75 g Procedure: The Olympus video bronchoscope was used for this procedure and initially passed out through the right naris. The right naris/posterior naris/posterior oropharynx: Anatomically within normal limits Glottis: Anatomically within normal limits Vocal cords: Proper abduction and abduction, anatomically within normal limits Subglottis/trachea/Estelita: Anatomically within normal limits Right bronchial tree: Right mainstem bronchus: Anatomically within normal limits Right upper lobe: Anatomically within normal limits Bronchus intermedius: Anatomically within normal limits Secondary estelita between the right middle lobe and right lower lobe: Notably splayed Right middle lobe: There is no external compression of the right middle lobe , was able to get down to a tertiary subsegment but unable to view any intraluminal masses Right lower lobe: There is notable posterior subsegment's. He was able to get down to her naris subsegment's been unable to visualize any intraluminal mass Left bronchial tree: Left mainstem bronchus: Anatomically within normal limits Left upper lobe: Anatomically within normal limits Lingula: Anatomically within normal limits Left lower lobe: Anatomically within normal limits Procedures: Intrabronchial biopsies: Blind forcep biopsies were made of the right lower lobe medial subsegment approximately 7 medium to large pieces were removed Bronchial lavage: Bronchial lavage was performed of the right lower lobe Studies: Forcep biopsies will sent off for pathological analysis Bronchial lavage: Sent off for microbiologic and cytologic analysis Complications: None Follow-up: Patient is to return to her room and on telemetry floor for further follow- up.
--- NOTE | 2017-01-29 18:48 | Family Medicine Progress Note ---
Progress Note Date of Service Jan 29, 2017. Subjective Pt evaluation today including: conversation w/ patient, conversation w/ family Voiding: gramajo catheter in place Patient was seen at the bedside. Her daughter Jenae was at the bedside when I visited her in the morning. Patient was sleeping comfortably on the bed. She was easily awakens by calling her name. She complains of frontal headache and states that sometimes it would get worse. Denies nausea, vomiting, SOB or chest pain. Per daughter she is having visual hallucination since last night. When I visit her later in the afternoon after she had the bronchoscopy done, she was very aggressive and agitated. Constitutional: + weight loss, No fever Respiratory: No cough, No shortness of breath Abdomen: No constipation, No diarrhea, No nausea, No pain, No vomiting Neurologic: + problem reported (complains of frontal headache) Psychiatric: + problem reported (agitated) Medications Current Inpatient Medications Medications (Trade) Dose Ordered Sig/Pradeep Route Start Time Stop Time Status Last Admin Dose Admin Sodium Chloride (Nss 1000ml) 1,000 ml @ 75 mls/hr [id number] IV 01/25/17 22:28 02/24/17 22:27 01/29/17 06:28 75 MLS/HR Acetaminophen (Tylenol Tab) 650 mg Q4H PRN PO 01/25/17 22:30 02/24/17 22:29 Al Hydrox/Mg Hydrox/Simethicone (Maalox Max Susp) 15 ml Q4H PRN PO 01/25/17 22:30 02/24/17 22:29 Magnesium Hydroxide (Milk Of Magnesia Susp) 30 ml Q12H PRN PO 01/25/17 22:30 02/24/17 22:29 Polyethylene (Miralax Powder Packet) 17 gm DAILY PRN PO 01/25/17 22:30 02/24/17 22:29 Levothyroxine Sodium (Synthroid Tab) 150 mcg DAILYBB PO 01/26/17 07:00 02/25/17 06:59 01/28/17 05:17 150 MCG Naproxen (Naprosyn Tab) 250 mg DAILY PRN PO 01/25/17 22:30 02/24/17 22:29 01/27/17 08:36 250 MG Ipratropium [place] (Atrovent 0.02% 0.5MG/2.5ML Neb) 0.5 mg Q6R INH 01/26/17 15:00 02/25/17 14:59 01/29/17 07:09 0.5 MG Levalbuterol (Xopenex 0.63 Mg/ 3 Ml Neb) 0.63 mg Q6R INH 01/26/17 15:00 02/25/17 14:59 01/29/17 07:09 0.63 MG Heparin Sodium (Porcine) (Heparin Sq 5000 Unit/0.5ml) 5,000 unit Q8 SQ 01/26/17 22:00 02/25/17 21:59 Future hold 01/28/17 14:23 5,000 UNIT Morphine Sulfate (MoRPHine SULFATE INJ) 2 mg Q6 PRN IV 01/26/17 19:45 02/09/17 19:44 Hydromorphone HCl (Dilaudid Inj) 1 mg Q6 PRN IV 01/27/17 13:00 02/10/17 12:59 01/28/17 07:45 1 MG Hydromorphone HCl (Dilaudid Inj) 0.5 mg Q6 PRN IV 01/27/17 14:00 02/10/17 13:59 Hydromorphone HCl (Dilaudid Inj) 1 mg Q6 PRN IV 01/27/17 14:00 02/10/17 13:59 Gadobutrol 5 mmol 5 mmol UD PRN IV 01/27/17 15:15 01/31/17 15:14 Dexamethasone Sodium Phosphate/ Syringe (Decadron Inj/ Syringe) 1 ml @ 1 mls/min Q6 IV 01/27/17 18:00 02/26/17 17:59 01/29/17 13:56 1 MLS/MIN Vancomycin HCl 1 ea 1 ea UD PRN N/A 01/28/17 12:15 02/27/17 12:14 Ondansetron HCl 8 mg/Dextrose 54 ml @ 216 mls/hr Q6H PRN IV 01/28/17 15:15 02/27/17 15:14 01/28/17 18:13 216 MLS/HR Vancomycin HCl/ Sodium Chloride (Vancomycin Inj/ Nss 250ml) 266 ml @ 125 mls/hr DAILY@2200 IV 01/28/17 22:00 02/07/17 13:38 01/28/17 22:24 125 MLS/HR Objective Vital Signs Date Time Temp Pulse Resp B/P Pulse Ox O2 Delivery O2 Flow Rate FiO2 01/29/17 16:00 Room Air 01/29/17 15:04 36.9 88 20 159/98 92 Room Air 01/29/17 12:41 87 20 132/66 95 Nasal Cannula 4.0 01/29/17 12:35 80 20 127/65 97 Mask 15.0 01/29/17 12:30 80 20 127/65 97 Mask 15.0 01/29/17 12:25 80 14 138/78 97 Mask 15.0 01/29/17 12:20 84 14 141/76 98 Mask 15.0 01/29/17 12:15 96 18 164/91 98 Mask 15.0 01/29/17 12:10 110 16 174/108 89 Mask 5.0 01/29/17 12:05 88 16 152/104 98 Mask 5.0 01/29/17 12:00 94 20 158/71 100 Mask 5.0 01/29/17 12:00 Room Air 01/29/17 11:55 81 18 159/75 100 Mask 5.0 01/29/17 11:35 68 18 167/85 100 Mask 5.0 01/29/17 11:00 Mask 01/29/17 10:06 36.5 77 18 165/83 96 Room Air 01/29/17 08:03 36.5 77 18 165/83 96 Room Air 01/29/17 07:30 Room Air 01/29/17 07:09 75 18 95 Room Air 01/29/17 04:00 Room Air 01/29/17 03:49 36.8 100 20 160/93 93 Room Air 01/29/17 00:00 Room Air 01/28/17 23:44 36.7 66 18 160/89 94 Room Air 01/28/17 22:42 36.3 71 18 159/85 97 Room Air 01/28/17 20:00 Room Air 01/28/17 19:27 36.3 71 18 159/85 97 Room Air Physical Exam General Appearance: no apparent distress Neck: supple, trachea midline Respiratory/Chest: chest non-tender, no respiratory distress, no accessory muscle use, + decreased breath sounds Cardiovascular: regular rate, rhythm, no edema Abdomen: normal bowel sounds, non tender, soft, + pertinent finding (Urostomy bag in intact) Extremities: non-tender, no pedal edema Neurologic/Psychiatric: alert, + pertinent finding (agitated and aggressive ) Skin: normal color, warm/dry, no rash Laboratory Results Results Past 24 Hours Test 01/28/17 20:00 01/29/17 06:05 Range/Units Random Vancomycin Level 14.7 mcg/ml White Blood Count 14.28 4.8-10.8 K/uL Red Blood Count 4.15 4.2-5.4 M/uL Hemoglobin 11.7 12.0-16.0 g/dL Hematocrit 35.3 37-47 % Mean Corpuscular Volume 85.1 80-100 fL Mean Corpuscular Hemoglobin 28.2 25-34 pg Mean Corpuscular Hemoglobin Concent 33.1 32-36 g/dl Platelet Count 219 130-400 K/uL Mean Platelet Volume 11.6 7.4-10.4 fL Neutrophils (%) (Auto) 90.0 % Lymphocytes (%) (Auto) 5.2 % Monocytes (%) (Auto) 4.3 % Eosinophils (%) (Auto) 0.0 % Basophils (%) (Auto) 0.1 % Neutrophils # (Auto) 12.87 1.4-6.5 K/uL Lymphocytes # (Auto) 0.74 1.2-3.4 K/uL Monocytes # (Auto) 0.61 0.11-0.59 K/uL Eosinophils # (Auto) 0.00 0-0.5 K/uL Basophils # (Auto) 0.01 0-0.2 K/uL RDW Standard Deviation 43.5 36.4-46.3 fL RDW Coefficient of Variation 14.1 11.5-14.5 % Immature Granulocyte % (Auto) 0.4 % Immature Granulocyte # (Auto) 0.05 0.00-0.02 K/uL Sodium Level 142 136-145 mmol/L Potassium Level 3.9 3.5-5.1 mmol/L Chloride Level 109 98-107 mmol/L Carbon Dioxide Level 24 21-32 mmol/L Anion Gap 9.0 3-11 mmol/L Blood Urea Nitrogen 19 7-18 mg/dl Creatinine 0.80 0.60-1.20 mg/dl Est Creatinine Clear Calc Drug Dose 45.8 ml/min Estimated GFR () 80.1 Estimated GFR (Non- 69.1 BUN/Creatinine Ratio 24.2 10-20 Random Glucose 116 70-99 mg/dl Calcium Level 8.8 8.5-10.1 mg/dl Total Bilirubin 0.4 0.2-1 mg/dl Aspartate Amino Transf (AST/SGOT) 15 15-37 U/L Alanine Aminotransferase (ALT/SGPT) 21 12-78 U/L Alkaline Phosphatase 51 45-117 U/L Total Protein 6.3 6.4-8.2 gm/dl Albumin 3.0 3.4-5.0 gm/dl Globulin 3.3 2.5-4.0 gm/dl Albumin/Globulin Ratio 0.9 0.9-2 Microbiology Results 01/29/17 Fungal Smear, Received Pending 01/29/17 Fungal Culture, Received Pending 01/29/17 Acid Fast Stain, Received Pending 01/29/17 Mycobacterial Culture, Received Pending 01/29/17 Gram Stain, Received Pending 01/29/17 Bronchoalveolar Lavage Culture, Received Pending Assessment and Plan This is a 81 year old female with history of bladder cancer s/p resection who presents with 3 month history of fatigue, weakness, headaches, vomiting, and significant weight loss. Imaging reveals lung mass, pulm nodules, lesions in spine and liver, concerning for primary lung cancer with metastases. MRI confirms brain mets. Patient is currently on IVF NSS @ 75mls/hr (day 5). * Agitation/Aggression - Patient became very agitated and aggressive after coming from bronchoscopy. - This could be 2/2 sedation medication she received prior to bronchoscopy vs brain mets. - Patient is on one to one - Continue to monitor her * RLL Lung mass, RUL nodule, and hepatic/spinal/brain lesions - likely primary lung malignancy with metastases. Patient and family aware of findings on scans thus far. - Bronchoscopy was performed today. Blind forcep biopsies were made of the RLL, approximately 7 pieces were removed. Bronchial lavage was performed of the RLL. Forcep biopsies sent for pathological analysis and bronchial lavage sent for microbiologic and cytologic analysis. - Heme/onc consulted and recommended a tissue diagnosis to determine further management. - Patient was seen by Dr. Castro radiation oncology, who recommended whole brain radiation therapy after final diagnosis. Also recommended to consider systemic chemotherapy under Dr. Diaz supervision. - Pain management: PRN Tylenol, Naproxen, Morphine, Hydromorphone - Zofran for nausea - Decadron IV 4mg q6h * A.fib - unsure if new or pre-existing but undiagnosed. - Trop x 3 negative. TSH WNL. Echo showed grade I diastolic dysfunction. [id number] score: 3. Anticoagulation discussed with patient's daughter (POA) with risks and benefits outlined. - No decision on anticoagulant made yet * UTI - Urine collected from urostomy bag. Urine culture grew coagulase (-) staph and enterococcus Faecalis. Antibiotics switched to IV vancomycin in view of staph oxacillin resistance, as discussed with pharmacist Caitlin. Vanc chosen to cover possible strep enterococcus infection. - Day #2 IV vancomycin (Day 2 of 10) - Both organisms are sensitive to Vanco * Severe protein-calorie malnutrition - most likely 2/2 lung CA - Add Boost * COPD - Atrovent 0.5mg and Xopenex 0.63mg q6h * Hypothyroidism - Continue levothyroxine * DVT prophylaxis - Heparin 5000 units q12h SC * Code - Patient is agreeable to chest compressions and defibrillation but NO ventilation. Resident Tracking Resident Involvement: Resident Care Provided Care Provided: Adult Hospital Medicine Reviewed: Pt Seen/Exam by Me History agitated in bed after bronchoscopy. family at bedside unable to give any history Constitutional: denies: fever General Appearance: other (restless in bed) Respiratory: no respiratory distress, decreased breath sounds Cardiovascular: regular rate, rhythm Neurologic/Psychiatric: alert (agitated) Assessment/Plan I have reviewed the medical record and performed a history and physical examination of this patient today. I have discussed the case with Dr. Reyes. The above note reflects my findings, conclusions, and recommendations placed on one on one monitoring avoid sedatives - will worsen the agitation. follow.
[2017-01-29] MEDS: VANCOMYCIN INJ 800 MG in SODIUM CHLORIDE 0.9% 250ML 250 ML IV SCH (21:33)
[2017-01-29] MEDS: HEPARIN SOD 5000 UNIT/0.5 ML CARP SQ SCH (21:37)
[2017-01-30] VITALS (7 sets, daily range): BP systolic 133–165; BP diastolic 73–79; PULSE 51–92; TEMP 36.3–36.8; O2SAT 93–96
[2017-01-30] MEDS: DEXAMETHASONE INJ 4 MG in SYRINGE 0 ML IV SCH ×5 (00:06→23:31)
[2017-01-30] MEDS: LEVALBUTEROL 0.63MG/3 ML NEB INH SCH ×4 (02:41→19:21)
[2017-01-30] MEDS: IPRATROPIUM BROMIDE NEB SOLN 0.02% 2.5 ML VIAL INH SCH ×4 (02:41→19:21)
[2017-01-30] MEDS: LEVOTHYROXINE 150 MCG TAB PO SCH (06:10)
[2017-01-30] MEDS: SODIUM CHLORIDE 0.9% 1000ML 1,000 ML IV SCH ×2 (06:11→22:22)
[2017-01-30] MEDS: HEPARIN SOD 5000 UNIT/0.5 ML CARP SQ SCH ×3 (06:12→22:21)
[2017-01-30 08:02] LABS: HEMATOCRIT 37.3 % (37-47); MEAN CORPUSCULAR HEMOGLOBIN 28.4 pg (25-34); MEAN CORPUSCULAR HGB CONC 33.8 g/dl (32-36); MEAN PLATELET VOLUME 11.3 fL (7.4-10.4); PLATELET COUNT 241 K/uL (130-400); RED BLOOD COUNT 4.44 M/uL (4.2-5.4); WHITE BLOOD COUNT 14.51 K/uL (4.8-10.8)
[2017-01-30 08:30] LABS: BUN/CREATININE RATIO 28.8 (10-20); CALCIUM 8.8 mg/dl (8.5-10.1); CREATININE 0.73 mg/dl (0.60-1.20); POTASSIUM 3.7 mmol/L (3.5-5.1)
--- NOTE | 2017-01-30 12:17 | Pulmonology Progress Note ---
Pulmonary Progress Note Date of Service Jan 30, 2017. Attending Dr. Macias Subjective Patient with no active complaints today able to ambulate throughout the room with minimal dyspnea. Objective Patient able to complete full sentences not showing any signs of respiratory distress or fatigue. Vital signs reviewed Respiratory: Minimal rhonchi appreciated right greater than left base Cardiac: S1-S2 regular rate and rhythm distant heart sounds next line abdomen: Positive bowel sounds soft nontender Skin: No breakdown appreciated Assessment & Plan 81-year-old female with high likelihood of metastatic carcinoma: #1 metastatic carcinoma: Patient's current workup shows signs of diffuse metastatic disease. She underwent bronchoscopy with intrabronchial biopsies performed for 01/15/17. Pathology is currently pending. We'll continue follow-up pathology and patient at this time. Data Medications: Current Inpatient Medications Medications (Trade) Dose Ordered Sig/Pradeep Route Start Time Stop Time Status Last Admin Dose Admin Sodium Chloride (Nss 1000ml) 1,000 ml @ 75 mls/hr [id number] IV 01/25/17 22:28 02/24/17 22:27 01/30/17 06:11 75 MLS/HR Acetaminophen (Tylenol Tab) 650 mg Q4H PRN PO 01/25/17 22:30 02/24/17 22:29 Al Hydrox/Mg Hydrox/Simethicone (Maalox Max Susp) 15 ml Q4H PRN PO 01/25/17 22:30 02/24/17 22:29 Magnesium Hydroxide (Milk Of Magnesia Susp) 30 ml Q12H PRN PO 01/25/17 22:30 02/24/17 22:29 Polyethylene (Miralax Powder Packet) 17 gm DAILY PRN PO 01/25/17 22:30 02/24/17 22:29 Levothyroxine Sodium (Synthroid Tab) 150 mcg DAILYBB PO 01/26/17 07:00 02/25/17 06:59 01/30/17 06:10 150 MCG Naproxen (Naprosyn Tab) 250 mg DAILY PRN PO 01/25/17 22:30 02/24/17 22:29 01/27/17 08:36 250 MG Ipratropium [place] (Atrovent 0.02% 0.5MG/2.5ML Neb) 0.5 mg Q6R INH 01/26/17 15:00 02/25/17 14:59 01/29/17 07:09 0.5 MG Levalbuterol (Xopenex 0.63 Mg/ 3 Ml Neb) 0.63 mg Q6R INH 01/26/17 15:00 02/25/17 14:59 01/29/17 07:09 0.63 MG Heparin Sodium (Porcine) (Heparin Sq 5000 Unit/0.5ml) 5,000 unit Q8 SQ 01/26/17 22:00 02/25/17 21:59 Future hold 01/30/17 06:12 5,000 UNIT Morphine Sulfate (MoRPHine SULFATE INJ) 2 mg Q6 PRN IV 01/26/17 19:45 02/09/17 19:44 Hydromorphone HCl (Dilaudid Inj) 1 mg Q6 PRN IV 01/27/17 13:00 02/10/17 12:59 01/28/17 07:45 1 MG Hydromorphone HCl (Dilaudid Inj) 0.5 mg Q6 PRN IV 01/27/17 14:00 02/10/17 13:59 Hydromorphone HCl (Dilaudid Inj) 1 mg Q6 PRN IV 01/27/17 14:00 02/10/17 13:59 Gadobutrol 5 mmol 5 mmol UD PRN IV 01/27/17 15:15 01/31/17 15:14 Dexamethasone Sodium Phosphate/ Syringe (Decadron Inj/ Syringe) 1 ml @ 1 mls/min Q6 IV 01/27/17 18:00 02/26/17 17:59 01/30/17 06:10 1 MLS/MIN Vancomycin HCl 1 ea 1 ea UD PRN N/A 01/28/17 12:15 02/27/17 12:14 Ondansetron HCl 8 mg/Dextrose 54 ml @ 216 mls/hr Q6H PRN IV 01/28/17 15:15 02/27/17 15:14 01/28/17 18:13 216 MLS/HR Vancomycin HCl/ Sodium Chloride (Vancomycin Inj/ Nss 250ml) 266 ml @ 125 mls/hr DAILY@2200 IV 01/28/17 22:00 02/07/17 13:38 01/29/17 21:33 125 MLS/HR I & O: 24-Hour Column 01/30/17 08:00 Intake Total 2810 ml Output Total 700 ml Balance 2110 ml Vital Signs: Date Time Temp Pulse Resp B/P Pulse Ox O2 Delivery O2 Flow Rate FiO2 01/30/17 08:00 Room Air 01/30/17 07:13 36.8 81 20 147/79 96 Room Air 01/30/17 04:00 Room Air 01/30/17 03:16 36.4 67 20 146/79 93 Room Air 01/30/17 00:13 155/74 01/30/17 00:00 Room Air 01/29/17 23:45 36.4 87 20 179/88 94 Room Air 01/29/17 20:00 Room Air 01/29/17 19:01 36.8 83 18 169/86 91 Room Air 01/29/17 16:00 Room Air 01/29/17 15:04 36.9 88 20 159/98 92 Room Air 01/29/17 12:41 87 20 132/66 95 Nasal Cannula 4.0 01/29/17 12:35 80 20 127/65 97 Mask 15.0 01/29/17 12:30 80 20 127/65 97 Mask 15.0 01/29/17 12:25 80 14 138/78 97 Mask 15.0 01/29/17 12:20 84 14 141/76 98 Mask 15.0 Laboratory Results: Last 24 Hours Test 01/30/17 07:38 White Blood Count 14.51 K/uL Red Blood Count 4.44 M/uL Hemoglobin 12.6 g/dL Hematocrit 37.3 % Mean Corpuscular Volume 84.0 fL Mean Corpuscular Hemoglobin 28.4 pg Mean Corpuscular Hemoglobin Concent 33.8 g/dl RDW Standard Deviation 43.6 fL RDW Coefficient of Variation 14.2 % Platelet Count 241 K/uL Mean Platelet Volume 11.3 fL Sodium Level 139 mmol/L Potassium Level 3.7 mmol/L Chloride Level 105 mmol/L Carbon Dioxide Level 24 mmol/L Anion Gap 10.0 mmol/L Blood Urea Nitrogen 21 mg/dl Creatinine 0.73 mg/dl Est Creatinine Clear Calc Drug Dose 51.0 ml/min Estimated GFR () 89.5 Estimated GFR (Non- 77.2 BUN/Creatinine Ratio 28.8 Random Glucose 116 mg/dl Calcium Level 8.8 mg/dl
--- NOTE | 2017-01-30 19:28 | Family Medicine Progress Note ---
Progress Note Date of Service Jan 30, 2017. Subjective Pt evaluation today including: conversation w/ patient, physical exam, lab review Voiding: gramajo catheter in place Patient was seen at the bedside. She was comfortably lying down on bed. She was less agitated today. According to the nurse Bridget who was at her bedside, she is very impulsive; however doing better than yesterday. Denies any complaints today. Respiratory: No cough, No shortness of breath Cardiovascular: No chest pain, No edema Abdomen: No diarrhea, No nausea, No pain, No vomiting Musculoskeletal: No muscle pain Medications Current Inpatient Medications Medications (Trade) Dose Ordered Sig/Pradeep Route Start Time Stop Time Status Last Admin Dose Admin Sodium Chloride (Nss 1000ml) 1,000 ml @ 75 mls/hr [id number] IV 01/25/17 22:28 02/24/17 22:27 01/30/17 06:11 75 MLS/HR Acetaminophen (Tylenol Tab) 650 mg Q4H PRN PO 01/25/17 22:30 02/24/17 22:29 Al Hydrox/Mg Hydrox/Simethicone (Maalox Max Susp) 15 ml Q4H PRN PO 01/25/17 22:30 02/24/17 22:29 Magnesium Hydroxide (Milk Of Magnesia Susp) 30 ml Q12H PRN PO 01/25/17 22:30 02/24/17 22:29 Polyethylene (Miralax Powder Packet) 17 gm DAILY PRN PO 01/25/17 22:30 02/24/17 22:29 Levothyroxine Sodium (Synthroid Tab) 150 mcg DAILYBB PO 01/26/17 07:00 02/25/17 06:59 01/30/17 06:10 150 MCG Naproxen (Naprosyn Tab) 250 mg DAILY PRN PO 01/25/17 22:30 02/24/17 22:29 01/27/17 08:36 250 MG Ipratropium [place] (Atrovent 0.02% 0.5MG/2.5ML Neb) 0.5 mg Q6R INH 01/26/17 15:00 02/25/17 14:59 01/29/17 07:09 0.5 MG Levalbuterol (Xopenex 0.63 Mg/ 3 Ml Neb) 0.63 mg Q6R INH 01/26/17 15:00 02/25/17 14:59 01/29/17 07:09 0.63 MG Heparin Sodium (Porcine) (Heparin Sq 5000 Unit/0.5ml) 5,000 unit Q8 SQ 01/26/17 22:00 02/25/17 21:59 Future hold 01/30/17 14:17 5,000 UNIT Morphine Sulfate (MoRPHine SULFATE INJ) 2 mg Q6 PRN IV 01/26/17 19:45 02/09/17 19:44 Hydromorphone HCl (Dilaudid Inj) 1 mg Q6 PRN IV 01/27/17 13:00 02/10/17 12:59 01/28/17 07:45 1 MG Hydromorphone HCl (Dilaudid Inj) 0.5 mg Q6 PRN IV 01/27/17 14:00 02/10/17 13:59 Hydromorphone HCl (Dilaudid Inj) 1 mg Q6 PRN IV 01/27/17 14:00 02/10/17 13:59 Gadobutrol 5 mmol 5 mmol UD PRN IV 01/27/17 15:15 01/31/17 15:14 Dexamethasone Sodium Phosphate/ Syringe (Decadron Inj/ Syringe) 1 ml @ 1 mls/min Q6 IV 01/27/17 18:00 02/26/17 17:59 01/30/17 18:28 1 MLS/MIN Vancomycin HCl 1 ea 1 ea UD PRN N/A 01/28/17 12:15 02/27/17 12:14 Ondansetron HCl 8 mg/Dextrose 54 ml @ 216 mls/hr Q6H PRN IV 01/28/17 15:15 02/27/17 15:14 01/28/17 18:13 216 MLS/HR Vancomycin HCl/ Sodium Chloride (Vancomycin Inj/ Nss 250ml) 266 ml @ 125 mls/hr DAILY@2200 IV 01/28/17 22:00 02/07/17 13:38 01/29/17 21:33 125 MLS/HR Objective Vital Signs Date Time Temp Pulse Resp B/P Pulse Ox O2 Delivery O2 Flow Rate FiO2 01/30/17 18:48 36.3 51 18 152/78 96 Room Air 01/30/17 16:00 Room Air 01/30/17 15:49 36.7 83 18 165/74 93 Room Air 01/30/17 12:39 36.8 92 19 135/76 96 Room Air 01/30/17 12:00 Room Air 01/30/17 08:00 Room Air 01/30/17 07:13 36.8 81 20 147/79 96 Room Air 01/30/17 04:00 Room Air 01/30/17 03:16 36.4 67 20 146/79 93 Room Air 01/30/17 00:13 155/74 01/30/17 00:00 Room Air 01/29/17 23:45 36.4 87 20 179/88 94 Room Air 01/29/17 20:00 Room Air Physical Exam General Appearance: no apparent distress Neck: supple, trachea midline Respiratory/Chest: chest non-tender, no respiratory distress, + decreased breath sounds Cardiovascular: regular rate, rhythm, no edema Abdomen: normal bowel sounds, non tender, soft, + pertinent finding (Urostomy bag on right is intact ) Extremities: non-tender, no pedal edema Neurologic/Psychiatric: alert Skin: normal color, warm/dry, no rash Laboratory Results Results Past 24 Hours Test 01/30/17 07:38 Range/Units White Blood Count 14.51 4.8-10.8 K/uL Red Blood Count 4.44 4.2-5.4 M/uL Hemoglobin 12.6 12.0-16.0 g/dL Hematocrit 37.3 37-47 % Mean Corpuscular Volume 84.0 80-100 fL Mean Corpuscular Hemoglobin 28.4 25-34 pg Mean Corpuscular Hemoglobin Concent 33.8 32-36 g/dl RDW Standard Deviation 43.6 36.4-46.3 fL RDW Coefficient of Variation 14.2 11.5-14.5 % Platelet Count 241 130-400 K/uL Mean Platelet Volume 11.3 7.4-10.4 fL Sodium Level 139 136-145 mmol/L Potassium Level 3.7 3.5-5.1 mmol/L Chloride Level 105 98-107 mmol/L Carbon Dioxide Level 24 21-32 mmol/L Anion Gap 10.0 3-11 mmol/L Blood Urea Nitrogen 21 7-18 mg/dl Creatinine 0.73 0.60-1.20 mg/dl Est Creatinine Clear Calc Drug Dose 51.0 ml/min Estimated GFR () 89.5 Estimated GFR (Non- 77.2 BUN/Creatinine Ratio 28.8 10-20 Random Glucose 116 70-99 mg/dl Calcium Level 8.8 8.5-10.1 mg/dl Assessment and Plan This is a 81 year old female with history of bladder cancer s/p resection who presents with 3 month history of fatigue, weakness, headaches, vomiting, and significant weight loss. Imaging reveals lung mass, pulm nodules, lesions in spine and liver, concerning for primary lung cancer with metastases. MRI confirms brain mets. Patient is currently on IVF NSS @ 75mls/hr (day 6). Patient is transferred to Med/Surg given improvement. * Agitation/Aggression - Patient was less agitated today. According to the nurse Bridget she is very impulsive. - This could be 2/2 sedation medication she received prior to bronchoscopy vs brain mets. - Patient is on one to one monitoring - Continue to monitor her * RLL Lung mass, RUL nodule, and hepatic/spinal/brain lesions - likely primary lung malignancy with metastases. Patient and family aware of findings on scans thus far. - Bronchoscopy was performed today. Blind forcep biopsies were made of the RLL, approximately 7 pieces were removed. Bronchial lavage was performed of the RLL. Pathology are pending. - Heme/onc consulted and recommended a tissue diagnosis to determine further management. - Patient was seen by Dr. Castro radiation oncology, who recommended whole brain radiation therapy after final diagnosis. Also recommended to consider systemic chemotherapy under Dr. Diaz supervision. - Pain management: PRN Tylenol, Naproxen, Morphine, Hydromorphone - Zofran for nausea - Decadron IV 4mg q6h - Pulmonary is on board, will continue to appreciate their recommendation * A.fib - On tele she was on Sinus rhythm today with heart rate in 60s - unsure if new or pre-existing but undiagnosed. - Trop x 3 negative. TSH WNL. - Echo showed grade I diastolic dysfunction. [id number] score: 3. Anticoagulation discussed with patient's daughter (POA) with risks and benefits outlined. - No decision on anticoagulant made yet. * UTI - Urine collected from urostomy bag. Urine culture grew coagulase (-) staph and enterococcus Faecalis. Antibiotics switched to IV vancomycin in view of staph oxacillin resistance, as discussed with pharmacist Caitlin. Vanc chosen to cover possible strep enterococcus infection. - Day #3 IV vancomycin (10 days course), plan to switch her on PO tomorrow - Both organisms are sensitive to Vanco * Severe protein-calorie malnutrition - most likely 2/2 lung CA - Add Boost - Will continue with IVF at this moment given decrease in her PO intake * COPD - Atrovent 0.5mg and Xopenex 0.63mg q6h * Hypothyroidism - Continue levothyroxine * DVT prophylaxis - Heparin 5000 units q12h SC * Code - Patient is agreeable to chest compressions and defibrillation but NO ventilation. Dispo: Given the current condition of the patient she is not competent enough to make any medical decision. Per family Jenae is her daughter who is the power of tax associate attorney. Have to find out if she can be taken care at home. Resident Tracking Resident Involvement: Resident Care Provided Care Provided: Adult Hospital Medicine Reviewed: Pt Seen/Exam by Me History less agitated today but still confused. confused as well - upset that her daughter is trying to not let her go home. Constitutional: denies: fever Respiratory: negative: short of breath Cardiovascular: denies chest pain General Appearance: no apparent distress Respiratory: no respiratory distress, decreased breath sounds Cardiovascular: regular rate, rhythm Neurologic/Psychiatric: alert, other (oriented to place and person) Skin Characteristics: warm/dry Assessment/Plan I have reviewed the medical record and performed a history and physical examination of this patient today. I have discussed the case with Dr. Reyes. The above note reflects my findings, conclusions, and recommendations
[2017-01-30] MEDS ORDERED: VANCOMYCIN TROUGH SCH (21:30)
[2017-01-30] MEDS: VANCOMYCIN INJ 800 MG in SODIUM CHLORIDE 0.9% 250ML 250 ML IV SCH (22:21)
[2017-01-31] MEDS: IPRATROPIUM BROMIDE NEB SOLN 0.02% 2.5 ML VIAL INH SCH ×2 (02:41→07:32)
[2017-01-31] MEDS: LEVALBUTEROL 0.63MG/3 ML NEB INH SCH ×2 (02:41→07:33)
[2017-01-31] MEDS: DEXAMETHASONE INJ 4 MG in SYRINGE 0 ML IV SCH (06:11)
[2017-01-31] MEDS: LEVOTHYROXINE 150 MCG TAB PO SCH (06:11)
[2017-01-31] MEDS: HEPARIN SOD 5000 UNIT/0.5 ML CARP SQ SCH (06:13)
[2017-01-31 07:19] VITALS: BP 165/77; PULSE 63; TEMP 36.4; O2SAT 94
[2017-01-31 07:32] VITALS: PULSE 75; O2SAT 95
[2017-01-31 08:10] LABS: HEMATOCRIT 37.8 % (37-47); MEAN CELL VOLUME 84.9 fL (80-100); MEAN CORPUSCULAR HEMOGLOBIN 28.5 pg (25-34); MEAN CORPUSCULAR HGB CONC 33.6 g/dl (32-36); MEAN PLATELET VOLUME 12.3 fL (7.4-10.4); PLATELET COUNT 235 K/uL (130-400); RED BLOOD COUNT 4.45 M/uL (4.2-5.4); WHITE BLOOD COUNT 13.68 K/uL (4.8-10.8)
[2017-01-31 08:41] LABS: BUN/CREATININE RATIO 28.9 (10-20); CALCIUM 8.7 mg/dl (8.5-10.1); CREATININE 0.97 mg/dl (0.60-1.20); POTASSIUM 3.5 mmol/L (3.5-5.1)
[2017-01-31] MEDS ORDERED: MCRB100 PO (09:42)
[2017-01-31] MEDS ORDERED: DXM4 PO (09:42)
--- NOTE | 2017-01-31 09:48 | Discharge Instructions ---
Discharge Instructions Date of Service Jan 31, 2017. 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 Instructions / Follow-Up Instructions / Follow-Up - Take Decadron 4mg every 6 hours daily - Take Macrobid 100mg every 6 hours for 7 days - Dr. Castro with radiation oncology will start with the radiation therapy, please follow his recommendation. - Dr. Macias Pulmonary will follow up with you as outpatient for further workups. Current Hospital Diet Patient's current hospital diet: Regular Diet Discharge Diet Recommended Diet: Regular Diet Pending Studies Studies pending at discharge: yes List of pending studies: bronchial bipsy results Medical Emergencies . Who to Call and When: Medical Emergencies: If at any time you feel your situation is an emergency, please call 911 immediately. . Non-Emergent Contact Non-Emergency issues call your: Primary Care Provider . . "Provider Documentation" section prepared by Jewell Reyes. VTE Core Measure Inpt VTE Proph given/why not?: Unfractionated heparin SQ
--- NOTE | 2017-01-31 09:58 | Pulmonology Progress Note ---
Pulmonary Progress Note Date of Service Jan 31, 2017. Attending Dr. Macias Subjective Patient has no active pulmonary complaints. Objective Patient doing well with no active pulmonary complaints but has has paranoid behavior over the last 24 hours with accusation toward her NELSON/aristides Tabor Vital signs reviewed Respiratory: Minimal rhonchi appreciated right greater than left base Cardiac: S1-S2 regular rate and rhythm distant heart sounds next line abdomen: Positive bowel sounds soft nontender Skin: No breakdown appreciated Pathology non-diagnostic Assessment & Plan 81-year-old female with high likelihood of metastatic carcinoma: #1 Metastatic Carcinoma: Etiology of probable ca is still in question as the bronchoscopy was non-diagnostic. If the patient and family want a more definitive answer she will need an EBUS/ENB procedure. We can set this up as an out-patient. I would also like multiple family members to be present as they appear to be at odds. Data Medications: Current Inpatient Medications Medications (Trade) Dose Ordered Sig/Pradeep Route Start Time Stop Time Status Last Admin Dose Admin Acetaminophen (Tylenol Tab) 650 mg Q4H PRN PO 01/25/17 22:30 02/24/17 22:29 Al Hydrox/Mg Hydrox/Simethicone (Maalox Max Susp) 15 ml Q4H PRN PO 01/25/17 22:30 02/24/17 22:29 Magnesium Hydroxide (Milk Of Magnesia Susp) 30 ml Q12H PRN PO 01/25/17 22:30 02/24/17 22:29 Polyethylene (Miralax Powder Packet) 17 gm DAILY PRN PO 01/25/17 22:30 02/24/17 22:29 01/30/17 23:35 17 GM Levothyroxine Sodium (Synthroid Tab) 150 mcg DAILYBB PO 01/26/17 07:00 02/25/17 06:59 01/31/17 06:11 150 MCG Naproxen (Naprosyn Tab) 250 mg DAILY PRN PO 01/25/17 22:30 02/24/17 22:29 01/27/17 08:36 250 MG Ipratropium [place] (Atrovent 0.02% 0.5MG/2.5ML Neb) 0.5 mg Q6R INH 01/26/17 15:00 02/25/17 14:59 01/31/17 07:32 0.5 MG Levalbuterol (Xopenex 0.63 Mg/ 3 Ml Neb) 0.63 mg Q6R INH 01/26/17 15:00 02/25/17 14:59 01/31/17 07:33 0.63 MG Heparin Sodium (Porcine) (Heparin Sq 5000 Unit/0.5ml) 5,000 unit Q8 SQ 01/26/17 22:00 02/25/17 21:59 Future hold 01/31/17 06:13 5,000 UNIT Morphine Sulfate (MoRPHine SULFATE INJ) 2 mg Q6 PRN IV 01/26/17 19:45 02/09/17 19:44 Hydromorphone HCl (Dilaudid Inj) 1 mg Q6 PRN IV 01/27/17 13:00 02/10/17 12:59 01/28/17 07:45 1 MG Hydromorphone HCl (Dilaudid Inj) 0.5 mg Q6 PRN IV 01/27/17 14:00 02/10/17 13:59 Hydromorphone HCl (Dilaudid Inj) 1 mg Q6 PRN IV 01/27/17 14:00 02/10/17 13:59 Gadobutrol 5 mmol 5 mmol UD PRN IV 01/27/17 15:15 01/31/17 15:14 Ondansetron HCl/ Dextrose (Zofran Inj/D5 50ml) 54 ml @ 216 mls/hr Q6H PRN IV 01/28/17 15:15 02/27/17 15:14 01/28/17 18:13 216 MLS/HR Nitrofurantoin Macrocrystals (Macrobid Cap) 100 mg Q6H PO 01/31/17 10:00 02/07/17 09:59 Dexamethasone (Decadron Tab) 4 mg Q6H PO 01/31/17 12:00 03/02/17 11:59 I & O: 24-Hour Column 01/31/17 08:00 Intake Total 1689 ml Output Total 1350 ml Balance 339 ml Vital Signs: Date Time Temp Pulse Resp B/P Pulse Ox O2 Delivery O2 Flow Rate FiO2 01/31/17 07:32 75 18 95 Room Air 01/31/17 07:19 36.4 63 18 165/77 94 01/31/17 00:00 Room Air 01/30/17 20:34 36.4 73 16 133/73 93 Room Air 01/30/17 18:48 36.3 51 18 152/78 96 Room Air 01/30/17 16:00 Room Air 01/30/17 15:49 36.7 83 18 165/74 93 Room Air 01/30/17 12:39 36.8 92 19 135/76 96 Room Air 01/30/17 12:00 Room Air Laboratory Results: Last 24 Hours Test 01/30/17 21:35 01/31/17 07:15 Vancomycin Level Trough 9.3 mcg/ml White Blood Count 13.68 K/uL Red Blood Count 4.45 M/uL Hemoglobin 12.7 g/dL Hematocrit 37.8 % Mean Corpuscular Volume 84.9 fL Mean Corpuscular Hemoglobin 28.5 pg Mean Corpuscular Hemoglobin Concent 33.6 g/dl RDW Standard Deviation 45.0 fL RDW Coefficient of Variation 14.5 % Platelet Count 235 K/uL Mean Platelet Volume 12.3 fL Sodium Level 140 mmol/L Potassium Level 3.5 mmol/L Chloride Level 104 mmol/L Carbon Dioxide Level 24 mmol/L Anion Gap 12.0 mmol/L Blood Urea Nitrogen 28 mg/dl Creatinine 0.97 mg/dl Est Creatinine Clear Calc Drug Dose 38.4 ml/min Estimated GFR () 63.5 Estimated GFR (Non- 54.8 BUN/Creatinine Ratio 28.9 Random Glucose 191 mg/dl Calcium Level 8.7 mg/dl
[2017-01-31] MEDS ORDERED: NITROFURANTOIN MONOHYDRATE 100 MG CAP PO SCH (10:00)
[2017-01-31 10:47] VITALS: BP 165/77; PULSE 75; TEMP 36.4; O2SAT 95
[2017-01-31] MEDS ORDERED: DEXAMETHASONE 4 MG TAB PO SCH (12:00)
--- NOTE | 2017-01-31 23:03 | Discharge Summary ---
Discharge Summary Date of Service Jan 31, 2017. 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 Weakness. COMPARISON STUDY: No previous studies for comparison. CT DOSE: 879.50 mGy.cm TECHNIQUE: Helical axial images of the head were obtained without IV contrast. Automated exposure control was utilized for the study. FINDINGS: No acute intracranial hemorrhage, midline shift or mass effect is present. Ventricular system is unremarkable for age. The basilar cisterns are patent. There are no extra-axial collections. Moderate white matter hypodensity suggests small vessel disease. There are no findings to suggest acute dural sinus thrombosis or acute territorial infarct. There is no calvarial fracture. There are layering secretions within the right maxillary sinus. There are postsurgical findings within the sinuses. There may be a small amount of fluid within the bilateral mastoid air cells. IMPRESSION: 1. No acute intracranial findings. 2. No calvarial fracture. Electronically signed by: Patricio Malave M.D. 01/25/2017 6:14 PM Dictated Date/Time: 01/25/2017 6:12 PM The status of this report is Signed. Draft = Not yet reviewed or approved by Radiologist. Signed = Reviewed and approved by Radiologist. <AttendingPhy></AttendingPhy> <FamilyPhy>Jm Bender D.O.</FamilyPhy> < PrimaryPhy>Jm Bender D.O.</PrimaryPhy> <UnitNumber>[id number]</ UnitNumber> <VisitNumber>[id number]</VisitNumber> <PatientName>JASSON OCRTEZ</PatientName> <DateOfBirth>1935</DateOfBirth> <Location>[facility]</ Location> <ServiceDate>01/25/17</ServiceDate> <MNE>ESINDI</MNE> <OrderingPhy> Pheflorian, Lynnette S DO</OrderingPhy> <OrderingPhyMNE>f rep ord dr morris</ OrderingPhyMNE> <DictatingPhyMNE>f rep dict dr morris</DictatingPhyMNE> <CCListMNE> f rep ct mne</CCListMNE> <AdmittingPhyMNE>f pt admit dr morris</AdmittingPhyMNE> < AttendingPhyMNE>f pt attend dr morris</AttendingPhyMNE> <ConsultingPhyMNE>f pt consult dr morris</ConsultingPhyMNE> <FamilyPhyMNE>f pt fam dr morris</FamilyPhyMNE> <OtherPhyMNE>f pt other dr morris</OtherPhyMNE> < PrimaryPhyMNE>f pt prim care dr morris</PrimaryPhyMNE> <ReferringPhyMNE>f pt referring dr morris</ReferringPhyMNE> Patient Name: JASSON CORTEZ Unit Number: [id number] Dictated: 01/25/171804 Transcribed: 01/25/171804 Printed Date/Time: [~ rep prt dt]/[~ rep prt tm] [~ rep ct labl] - [~ rep ct ivnm] [facility] [place] [address] Dictated: 01/25/171804 Transcribed: 01/25/171804 Printed Date/Time: [~ rep prt dt]/[~ rep prt tm] [~ rep ct labl] - [~ rep ct ivnm] CHEST ONE VIEW PORTABLE CLINICAL HISTORY: Weakness. Dizziness. COMPARISON STUDY: No previous studies for comparison. FINDINGS: There is no pneumothorax or pleural effusion. Pulmonary vascularity is normal. No consolidation is identified to suggest pneumonia. Cardiac size is normal. There is right infrahilar fullness. IMPRESSION: Right infrahilar fullness. This may reflect normal structures however a mass or lymphadenopathy could appear similar and a nonemergent chest CT with contrast is recommended. Electronically signed by: Patricio Malave M.D. 01/25/2017 6:07 PM Dictated Date/Time: 01/25/2017 6:05 PM The status of this report is Signed. Draft = Not yet reviewed or approved by Radiologist. Signed = Reviewed and approved by Radiologist. <AttendingPhy></AttendingPhy> <FamilyPhy>Jm Bender D.O.</FamilyPhy> < PrimaryPhy>Jm Bender D.O.</PrimaryPhy> <UnitNumber>[id number]</ UnitNumber> <VisitNumber>[id number]</VisitNumber> <PatientName>JASSON CORTEZ</PatientName> <DateOfBirth>1935</DateOfBirth> <Location>[facility]</ Location> <ServiceDate>01/25/17</ServiceDate> <MNE>ESINDI</MNE> <OrderingPhy> PheLynnette du S DO</OrderingPhy> <OrderingPhyMNE>f rep ord dr morris</ OrderingPhyMNE> <DictatingPhyMNE>f rep dict dr morris</DictatingPhyMNE> <CCListMNE> f rep ct mne</CCListMNE> <AdmittingPhyMNE>f pt admit dr morris</AdmittingPhyMNE> < AttendingPhyMNE>f pt attend dr morris</AttendingPhyMNE> <ConsultingPhyMNE>f pt consult dr morris</ConsultingPhyMNE> <FamilyPhyMNE>f pt fam dr morris</FamilyPhyMNE> <OtherPhyMNE>f pt other dr morris</OtherPhyMNE> < PrimaryPhyMNE>f pt prim care dr morris</PrimaryPhyMNE> <ReferringPhyMNE>f pt referring dr morris</ReferringPhyMNE> Patient Name: JASSON CORTEZ Unit Number: [id number] Dictated: 01/25/171814 Transcribed: 01/25/171814 JA Printed Date/Time: [~ rep prt dt]/[~ rep prt tm] [~ rep ct labl] - [~ rep ct ivnm] [facility] [place] [address] Dictated: 01/25/171814 Transcribed: 01/25/171814 JA Printed Date/Time: [~ rep prt dt]/[~ rep prt tm] [~ rep ct labl] - [~ rep ct ivnm] CT OF THE CERVICAL SPINE WITHOUT CONTRAST CLINICAL HISTORY: Fall. COMPARISON STUDY: No previous studies for comparison. TECHNIQUE: Helical axial images of the cervical spine were obtained without IV contrast. Sagittal and coronal reconstructions were viewed. FINDINGS: No acute cervical spine fracture is identified. Vertebral body heights are maintained. Xjxi-qq-xmmytsoo multilevel degenerative changes are present. There is a small amount of fluid within the bilateral mastoid air cells. There is no prevertebral edema. There is no pneumothorax within visualized portions of the lung apices. Mild anterolisthesis of C7 on T1 is likely due to facet arthrosis. IMPRESSION: No acute cervical spine fracture or subluxation. Electronically signed by: Patricio Malave M.D. 01/25/2017 6:17 PM Dictated Date/Time: 01/25/2017 6:15 PM The status of this report is Signed. Draft = Not yet reviewed or approved by Radiologist. Signed = Reviewed and approved by Radiologist. <AttendingPhy></AttendingPhy> <FamilyPhy>Jm Bender D.O.</FamilyPhy> < PrimaryPhy>Jm Bender D.O.</PrimaryPhy> <UnitNumber>[id number]</ UnitNumber> <VisitNumber>[id number]</VisitNumber> <PatientName>JASSON CORTEZ</PatientName> <DateOfBirth>1935</DateOfBirth> <Location>[facility]</ Location> <ServiceDate>01/25/17</ServiceDate> <MNE>ESINDI</MNE> <OrderingPhy> Lynnette Rowley DO</OrderingPhy> <OrderingPhyMNE>f rep ord dr mne</ OrderingPhyMNE> <DictatingPhyMNE>f rep dict dr morris</DictatingPhyMNE> <CCListMNE> f rep ct mne</CCListMNE> <AdmittingPhyMNE>f pt admit dr morris</AdmittingPhyMNE> < AttendingPhyMNE>f pt attend dr morris</AttendingPhyMNE> <ConsultingPhyMNE>f pt consult dr morris</ConsultingPhyMNE> <FamilyPhyMNE>f pt fam dr morris</FamilyPhyMNE> <OtherPhyMNE>f pt other dr morris</OtherPhyMNE> < PrimaryPhyMNE>f pt prim care dr morris</PrimaryPhyMNE> <ReferringPhyMNE>f pt referring dr morris</ReferringPhyMNE> Patient Name: JASSON CORTEZ Unit Number: [id number] Dictated: 01/25/172236 Transcribed: 01/25/172236 SAVANA Printed Date/Time: [~ rep prt dt]/[~ rep prt tm] [~ rep ct labl] - [~ rep ct ivnm] [facility] [place] [address] Dictated: 01/25/172236 Transcribed: 01/25/172236 JA Printed Date/Time: [~ rep prt dt]/[~ rep prt tm] [~ rep ct labl] - [~ rep ct ivnm] CT OF THE CHEST WITHOUT IV CONTRAST CLINICAL HISTORY: Abnormal chest radiograph with right hilar fullness. COMPARISON STUDY: Chest radiograph performed earlier today. CT DOSE: 279.70 mGy.cm TECHNIQUE: Axial images of the chest were obtained without IV contrast. Images were reviewed in the axial, sagittal, and coronal planes. IV contrast was not administered for this examination. FINDINGS: The size of the heart is at upper limits of normal. There is no pericardial effusion. Note is made of a 9.5 x 5.7 x 3.6 cm mass-like abnormality within the medial aspect the right lower lobe. This involves the superior segment of the right lower lobe and the medial basilar segment of the right lower lobe. The bronchus to the superior segment may be occluded. There is narrowing with possible occlusion of multiple segmental bronchi within the right lower lobe. This mass-like abnormality is irregular. There is no pneumothorax or pleural effusion. A few scattered pulmonary nodules are noted, including a 6 mm right upper lobe nodule. This is shown on image 77 of 316. A borderline enlarged subcarinal lymph node measures 1 cm short axis diameter. There are several suspected mildly enlarged right hilar lymph nodes which are suboptimally assessed on this unenhanced exam. Note is made of a 2.4 cm area of sclerosis within the T12 vertebral body which extends into the right pedicle. There is associated irregularity the posterior cortex of this vertebral body. Several water attenuation hepatic lesions likely reflect cysts. There is an intermediate attenuation 2.1 cm right hepatic lobe lesion shown on image 52 of 64. A water attenuation lesion arising from the upper pole of the left kidney likely reflects a cyst. There is right renal atrophy. IMPRESSION: 1. 9.5 x 5.7 x 3.6 cm irregular mass-like opacity within the superior segment and medial basilar segment of the right lower lobe which corresponds to the abnormality on prior chest radiograph. This is suggestive of a neoplastic process such as bronchogenic carcinoma. An infectious process could appear similar although neoplasm is favored. Consultation for consideration for bronchoscopy is recommended for tissue sampling 2. A few indeterminate small pulmonary nodules, as described above. 3. 2.1 cm hypodense right hepatic lobe lesion which could be assessed with a contrast-enhanced CT. This could reflect a metastasis. 4. Indeterminate 2.4 cm sclerotic lesion within the T12 vertebral body which extension into the right pedicle and results in irregularity of the posterior cortex. 5. Several suspected enlarged right hilar lymph nodes which are suboptimally assessed on this unenhanced exam. This could reflect billy spread of disease. Electronically signed by: Patricio Malave M.D. 01/25/2017 10:57 PM Dictated Date/Time: 01/25/2017 10:37 PM The status of this report is Signed. Draft = Not yet reviewed or approved by Radiologist. Signed = Reviewed and approved by Radiologist. <AttendingPhy></AttendingPhy> <FamilyPhy>Jm Bender D.O.</FamilyPhy> < PrimaryPhy>Jm Bender D.O.</PrimaryPhy> <UnitNumber>[id number]</ UnitNumber> <VisitNumber>[id number]</VisitNumber> <PatientName>JASSON CORTEZ</PatientName> <DateOfBirth>1935</DateOfBirth> <Location>[facility]</ Location> <ServiceDate>01/25/17</ServiceDate> <MNE>ESINDI</MNE> <OrderingPhy> Beatris Narvaez MD</OrderingPhy> <OrderingPhyMNE>f rep ord dr morris</ OrderingPhyMNE> <DictatingPhyMNE>f rep dict dr morris</DictatingPhyMNE> <CCListMNE> f rep ct mne</CCListMNE> <AdmittingPhyMNE>f pt admit dr morris</AdmittingPhyMNE> < AttendingPhyMNE>f pt attend dr morris</AttendingPhyMNE> <ConsultingPhyMNE>f pt consult dr morris</ConsultingPhyMNE> <FamilyPhyMNE>f pt fam dr morris</FamilyPhyMNE> <OtherPhyMNE>f pt other dr morris</OtherPhyMNE> < PrimaryPhyMNE>f pt prim care dr morris</PrimaryPhyMNE> <ReferringPhyMNE>f pt referring dr morris</ReferringPhyMNE> Patient Name: JASSON CORTEZ Unit Number: [id number] Dictated: 01/26/17700 Transcribed: 01/26/17700 MS Printed Date/Time: [~ rep prt dt]/[~ rep prt tm] [~ rep ct labl] - [~ rep ct ivnm] [facility] [place] [address] Dictated: 01/26/17700 Transcribed: 01/26/17700 MS Printed Date/Time: [~ rep prt dt]/[~ rep prt tm] [~ rep ct labl] - [~ rep ct ivnm] ABDOMEN AND PELVIS CT WITHOUT CONTRAST CT DOSE: 256.32 mGy.cm HISTORY: Neoplasm look for neoplastic dz./ mets TECHNIQUE: Multiaxial CT images of the abdomen and pelvis were performed without contrast. COMPARISON STUDY: None. FINDINGS: 5 x 4 cm masslike process lower right paravertebral region. This is associated with sclerosis of the T12 vertebral body at its right posterolateral aspect. 8 mm nodular density left lateral costophrenic angle. Lung bases otherwise are considered clear. Possible punctate additional nodular densities right base 2. Small quantify. Multiple hepatic hypodensities the bulk of which are most likely cystic. Several are too small to quantify. Spleen is unremarkable. Pancreas is uniform within limitations of an unenhanced scan. Right kidney is atrophic. There is mild bilateral hydronephrosis. Patient is status post ileal loop diversion. There is single significant increase in fecal material within the rectosigmoid. Postoperative bowel anastomotic changes are present. Bowel pattern in general is nonobstructive nonobstructive. 3.2 cm infrarenal abdominal aortic aneurysm. Degenerative change lumbar spine. Possible small lytic defects left superior iliac crest. Old compression deformities of L1 and L3. Postoperative changes of the soft tissue pelvis. Prior cystectomy IMPRESSION: 1. Right lower thoracic paravertebral soft tissue mass raising possibility of neoplasm.. 2. Hepatic cysts although several are too small to quantify. 3. Additional smaller bibasilar pulmonary nodularity. 4. Probable metastatic focus T12 vertebral body and possibly left superior iliac crest. 5. Nonobstructive bowel pattern. 6. Status post bilateral partial colonic resection with prior cystectomy and ileal loop procedure Electronically signed by: Abdoulaye Mitchell M.D. 01/26/2017 7:09 AM Dictated Date/Time: 01/26/2017 7:01 AM The status of this report is Signed. Draft = Not yet reviewed or approved by Radiologist. Signed = Reviewed and approved by Radiologist. <AttendingPhy>Dwight Sky M.D.</AttendingPhy> <FamilyPhy>Jm Bender D.O.</FamilyPhy> <PrimaryPhy>Jm Bender D.O.</PrimaryPhy> < UnitNumber>[id number]</UnitNumber> <VisitNumber>[id number]</VisitNumber> < PatientName>JASSON CORTEZ</PatientName> <DateOfBirth>1935</DateOfBirth > <Location>[facility]</Location> <ServiceDate>01/25/17</ServiceDate> <MNE>ESINDI</ MNE> <OrderingPhy>Beatris Narvaez MD</OrderingPhy> <OrderingPhyMNE>f rep ord dr morris</OrderingPhyMNE> <DictatingPhyMNE>f rep dict dr morris</ DictatingPhyMNE> <CCListMNE>f rep ct mne</CCListMNE> <AdmittingPhyMNE>f pt admit dr morris</AdmittingPhyMNE> <AttendingPhyMNE>f pt attend dr morris</ AttendingPhyMNE> <ConsultingPhyMNE>f pt consult dr morris</ConsultingPhyMNE> <FamilyPhyMNE>f pt fam dr morris</FamilyPhyMNE> <OtherPhyMNE>f pt other dr morris</OtherPhyMNE> < PrimaryPhyMNE>f pt prim care dr morris</PrimaryPhyMNE> <ReferringPhyMNE>f pt referring dr morris</ReferringPhyMNE> Patient Name: JASSON CORTEZ Unit Number: [id number] Dictated: 01/27/171536 Transcribed: 01/27/171536 Printed Date/Time: [~ rep prt dt]/[~ rep prt tm] [~ rep ct labl] - [~ rep ct ivnm] [facility] [place] [address] Dictated: 01/27/171536 Transcribed: 01/27/171536 JA Printed Date/Time: [~ rep prt dt]/[~ rep prt tm] [~ rep ct labl] - [~ rep ct ivnm] MRI OF THE BRAIN WITHOUT AND WITH IV CONTRAST CLINICAL HISTORY: To rule out PROTEIN CHEMIST metastases COMPARISON STUDY: Head CT January 25, 2017. TECHNIQUE: Utilizing a 1.5 Yvonne magnet and dedicated coil, multiplanar, multiecho imaging of the brain was performed pre and postcontrast administration. IV administration of 5 mL of Gadavist contrast was uneventful. FINDINGS: There are innumerable infratentorial and supratentorial enhancing lesions consistent with metastatic disease. Many of these lesions are ring-enhancing. There is a 1.1 cm lesion within the vermis and a 1 cm lesion within the left temporal lobe. These represent the largest lesions. There is mild associated vasogenic edema. These were not evident on prior head CT due to their size. There is a 3.2 x 1.2 cm gyriform enhancing focus within the left parietal lobe. This exam is mildly compromised by motion artifact. There is no acute intracranial hemorrhage, midline shift or mass effect. Periventricular white matter T2 hyperintensity suggest small vessel disease. Several small subtle calvarial lesions shown best on coronal FLAIR image could reflect calvarial metastases. IMPRESSION: 1. Innumerable small enhancing lesions consistent with extensive metastases. Mild associated vasogenic edema. The majority of these lesions are parenchymal. However, several leptomeningeal metastases may be present. 2. 3.2 x 1.2 cm gyriform enhancing focus within the left parietal lobe. This could reflect a subacute infarct or leptomeningeal carcinomatosis. 3. Several small suspected calvarial metastases. Electronically signed by: Patricio Malave M.D. 01/27/2017 3:45 PM Dictated Date/Time: 01/27/2017 3:37 PM The status of this report is Signed. Draft = Not yet reviewed or approved by Radiologist. Signed = Reviewed and approved by Radiologist. <AttendingPhy>Bryan Sevilla MD</AttendingPhy> <FamilyPhy>Jm Bender D.O.</FamilyPhy> <PrimaryPhy>Jm Bender D.O.</PrimaryPhy> < UnitNumber>[id number]</UnitNumber> <VisitNumber>[id number]</VisitNumber> < PatientName>JASSON CORTEZ</PatientName> <DateOfBirth>1935</DateOfBirth > <Location>[facility]</Location> <ServiceDate>01/25/17</ServiceDate> <MNE>ESINDI</MNE > <OrderingPhy>Piedad Almaraz MD</OrderingPhy> <OrderingPhyMNE>f rep ord dr morris</ OrderingPhyMNE> <DictatingPhyMNE>f rep dict dr morris</DictatingPhyMNE> <CCListMNE> f rep ct mne</CCListMNE> <AdmittingPhyMNE>f pt admit dr morris</AdmittingPhyMNE> < AttendingPhyMNE>f pt attend dr morris</AttendingPhyMNE> <ConsultingPhyMNE>f pt consult dr morris</ConsultingPhyMNE> <FamilyPhyMNE>f pt fam dr morris</FamilyPhyMNE> <OtherPhyMNE>f pt other dr morris</OtherPhyMNE> < PrimaryPhyMNE>f pt prim care dr morris</PrimaryPhyMNE> <ReferringPhyMNE>f pt referring dr morris</ReferringPhyMNE> (Jewell Reyes MD) Medication Reconciliation New Medications: Dexamethasone (Dexamethasone) 4 Mg Tab 4 MG PO Q6H for 30 Days, #120 TAB Nitrofurantoin Monohyd Macrocr (Nitrofurantoin Monohydrat) 100 Mg Cap 100 MG PO Q6H for 7 Days, #28 CAP Continued Medications: Levothyroxine Sodium (Synthroid) 150 Mcg Tab 150 MCG PO DAILY, TAB Naproxen Sodium (Aleve) 220 Mg Cap 1 CAP PO UD PRN for Pain Referrals At Discharge Follow up Referrals: [facility] Referral - Within 1-2 Weeks with Elton Macias MD Discharge Exam Review of Systems: Constitutional: No chills, No fever Respiratory: No cough, No shortness of breath, No sputum Cardiovascular: No chest pain, No edema Abdomen: No constipation, No diarrhea, No nausea, No pain, No vomiting Musculoskeletal: No swelling Physical Exam: General Appearance: no apparent distress, + cachetic, + thin Neck: supple, trachea midline Respiratory/Chest: chest non-tender, no respiratory distress, no accessory muscle use Cardiovascular: regular rate, rhythm, no edema Abdomen / GI: normal bowel sounds, non tender, soft, + pertinent finding ( urostomy bag is intact on the right) Extremities: no calf tenderness, no pedal edema Neurologic/Psychiatric: alert, + pertinent finding (very implusive) Skin: normal color, warm/dry (Jewell Reyes MD) Review of Systems: Constitutional: No fever Respiratory: No shortness of breath Cardiovascular: No chest pain Abdomen: No nausea, No pain, No vomiting Physical Exam: General Appearance: no apparent distress Respiratory/Chest: lungs clear, no respiratory distress Cardiovascular: regular rate, rhythm Abdomen / GI: normal bowel sounds, non tender, soft Neurologic/Psychiatric: alert, + pertinent finding (oriented to place and person) Skin: warm/dry (Michaela Wills M.D.) Hospital Course This is a 81 year old female with history of bladder cancer s/p resection who presents with 3 month history of fatigue, weakness, headaches, vomiting, and significant weight loss. Most of the history was obtained from the daughter. Per daughter she will have a few good days and then several bad days where she would be vomiting, and look pale and be dizzy/presyncopal. She did have one episode of a fall where she hit the back of her head on the toilet because she was so dizzy. She just feels "unwell" and is worried that her bladder cancer is back. She has lost about 8 months in a month. Has frequent chills and night sweats. She continues to smoke 1/2 PPD and consumes alcohol occasionally. She has not been following anyone for her bladder ca/urostomy for about 2 years now, so she recently made an appt with Dr. Novak. Her appointment to establish care was this morning. At the office, she was found to be significantly hypotensive and was redirected to the ER. Patient was on Afib in ED then she converted to sinus rhythm shortly. * RLL Lung mass, RUL nodule, and hepatic/spinal/brain lesions - Chest CT showed RLL mass, which was concern for malignancy. CT of abdomen/ pelvic showed lesion which raised concern for metastasis. Pulmonology was consulted. Dr. Macias performed bronchoscopy and biopsy was taken. Pathology is pending. Heme/Onc and Radiation oncology was consulted. Dr. Diaz recommended to wait for definite tissue diagnosis before starting any treatment. Dr. Castro recommended radiation of the brain. She was schedule today for radiation. Dr. Macias will follow up with the patient in 1-2 weeks for further intervention /management. Dr. Castro will follow the patient in the clinic. Patient was discharge on 4mg Decadron q6h * UTI - Urine collected from urostomy bag. Urine culture grew coagulase (-) staph and enterococcus Faecalis. Antibiotics switched to IV vancomycin because of MRSA infection. Patient received 4 days of Vancomycin. On discharge patient was switched to PO Macrobid 100mg BID X7days. * Impulsiveness/Agitation - This could be 2/2 brain mets. Avoid sedation medications Total Time Spent: Greater than 30 minutes This includes examination of the patient, discharge planning, medication reconciliation, and communication with other providers. (Jewell Reyes MD) I have reviewed the medical record and performed a history and physical examination of this patient today. I have discussed the case with Dr. Reyes. The above note reflects my findings, conclusions, and recommendations. Total Time Spent: Greater than 30 minutes (35) (Michaela Wills M.D.) Discharge Instructions Please refer to the electronic Patient Visit Report (Discharge Instructions) for additional information. (Jewell Reyes MD) Additional Copies To Jm Bender D.O.
--- NOTE | 2017-02-02 11:46 | EDITING REQUIRED CODING QUERY ---
PATHOLOGY To promote full compliance with coding requirements relating to patient care, physician participation is requested in all cases of fur tailor uncertainty. Please assist us with the question(s) below: Bronchoscopy with bronchial biopsies and Bronchoalveolar Lavage done. Please review the Pathology report and please document any relevant diagnosis(es) below. Thank you. JANEE Meneses [facility] Diagnosis(es): Lung mass with metastatic lesion
== END 2017-01-31 11:30 | disposition home or self-care (01) | DRG 166 ==
LOC: ENRESERVDT → ENRESERVTM → C.EDB 16:39 → C.EDINP 22:37 → UNDODISIN 01-26 07:55 → C.MSICU 01-26 08:03 → C.2E 01-26 18:47 → C.MS2W 01-30 20:16
PROVIDERS: ADMIT Student in an Organized Health Care Education/Training Program; ATTEND Family Medicine
PROC: 0B9F8ZX Drainage of Right Lower Lung Lobe, Via Natural or Artificial Opening Endoscopic, Diagnostic (ICD-10-PCS; principal; 2017-01-29)
PROC: 0BB68ZX Excision of Right Lower Lobe Bronchus, Via Natural or Artificial Opening Endoscopic, Diagnostic (ICD-10-PCS; principal; 2017-01-29)
DX: C34.91 Malignant neoplasm of unspecified part of right bronchus or lung (principal); C78.7 Secondary malignant neoplasm of liver and intrahepatic bile duct; G93.6 Cerebral edema; C79.51 Secondary malignant neoplasm of bone; C79.31 Secondary malignant neoplasm of brain; N39.0 Urinary tract infection, site not specified; C34.31 Malignant neoplasm of lower lobe, right bronchus or lung; I95.9 Hypotension, unspecified; Z90.6 Acquired absence of other parts of urinary tract; E03.9 Hypothyroidism, unspecified; F17.210 Nicotine dependence, cigarettes, uncomplicated; I48.0 Paroxysmal atrial fibrillation; J44.9 Chronic obstructive pulmonary disease, unspecified; B95.8 Unspecified staphylococcus as the cause of diseases classified elsewhere; B95.5 Unspecified streptococcus as the cause of diseases classified elsewhere; Z93.6 Other artificial openings of urinary tract status; Z85.51 Personal history of malignant neoplasm of bladder

== ENCOUNTER 2017-02-02 21:50 | Inpatient (IN) | payer OTHER, BC ==
[~2017-02-02] VITALS: Ht 165.1 cm; Wt 58.9 kg
[~2017-02-02 21:50] MED LIST changes: -AMOX875T PO; +DXM4 PO; +MCRB100 PO
[2017-02-02] MEDS ORDERED: ONDANSETRON INJ 2 MG/ML 2 ML VIAL IV STA (22:06)
[2017-02-02] MEDS ORDERED: LACTATED RINGER'S 1000ML 1,000 ML IV SCH (22:06)
[2017-02-02] MEDS ORDERED: HYDROmorphone INJ 0.5 MG/0.5 ML SYR IV PRN ×2 (22:15)
[2017-02-02 22:44] LABS: BASO ABS # 0.01 K/uL (0-0.2); COMPLETE YES; EOS % 0.1 %; IG% 0.7 %; LYMPH % 5.4 %; LYMPH ABS # 1.14 K/uL (1.2-3.4); MEAN CORPUSCULAR HEMOGLOBIN 28.5 pg (25-34); MEAN CORPUSCULAR HGB CONC 34.4 g/dl (32-36); MEAN PLATELET VOLUME 11.4 fL (7.4-10.4); MONO % 3.8 %; PLATELET COUNT 235 K/uL (130-400)
[2017-02-02 22:54] LABS: PARTIAL THROMBOPLASTIN RATIO 0.9; PROTHROMBIN TIME (PATIENT) 10.2 SECONDS (9.0-12.0)
[2017-02-02 22:59] LABS: BLOOD UREA NITROGEN 43 mg/dl (7-18); BUN/CREATININE RATIO 43.1 (10-20); CARBON DIOXIDE 28 mmol/L (21-32); CHLORIDE 100 mmol/L (98-107); GLUCOSE 175 mg/dl (70-99); POTASSIUM 3.6 mmol/L (3.5-5.1); SODIUM 138 mmol/L (136-145)
--- NOTE | 2017-02-02 22:59 | DIAGNOSTIC IMAGING REPORT ---
HEAD CT NONCONTRAST CT DOSE: HISTORY: Fall. Stroke symptoms. TECHNIQUE: Multiaxial CT images of the head were performed without the use of intravenous contrast. Automated exposure control was utilized for this study. Comparison: Head CT 01/25/2017. Findings: Small amount of fluid within the right maxillary sinus. No fractures within the calvarium. Small subacute lacunar infarction within the right basal ganglia. This is new from the prior study. Atrophy and microvascular ischemic changes are again noted. There is no mass, hematoma, or midline shift. Impression: 1. No acute intracranial hemorrhage. 2. Small subacute lacunar infarct within the right basal ganglia which is new from the prior study. Electronically signed by: Reynold Young M.D. 02/02/2017 10:57 PM Dictated Date/Time: 02/02/2017 10:53 PM
--- NOTE | 2017-02-02 23:02 | DIAGNOSTIC IMAGING REPORT ---
LEFT HIP CT CT DOSE: 1209.33 mGy.cm HISTORY: Fall. left hip pain, lung ca TECHNIQUE: Multiaxial CT images of the left hip were performed and reformatted in the sagittal and coronal plane without the use of contrast. COMPARISON: Left hip 02/02/2017. FINDINGS: Nondisplaced intertrochanteric fracture within the proximal left femur. No dislocation. The visualized pelvic bones are intact. Small subcutaneous contusion within the lateral aspect of the hip. IMPRESSION: Nondisplaced intertrochanteric fracture within the proximal left femur. Electronically signed by: Reynold Young M.D. 02/02/2017 11:00 PM Dictated Date/Time: 02/02/2017 10:57 PM
--- NOTE | 2017-02-02 23:03 | DIAGNOSTIC IMAGING REPORT ---
LEFT PELVIS/UNILATERAL HIP 2-3VIEWS CLINICAL HISTORY: fall, left hip pain COMPARISON STUDY: None. FINDINGS: Nondisplaced intertrochanteric fracture within the proximal left femur. The bones are osteopenic. Visualized pelvic bones are intact. No fractures within the pelvis or right hip. No dislocation. Surgical clips within the deep pelvis. IMPRESSION: Nondisplaced intertrochanteric fracture within the proximal left femur. Electronically signed by: Reynold Young M.D. 02/02/2017 11:01 PM Dictated Date/Time: 02/02/2017 11:00 PM
[2017-02-02] MEDS ORDERED: CEFTRIAXONE SOD INJ 1 GM ADDVIAL IV STA (23:07)
[2017-02-02] MEDS ORDERED: ASPIRIN 81 MG CHEW PO STA (23:08)
--- NOTE | 2017-02-02 23:32 | History and Physical ---
History & Physical Date & Time of Service: Feb 02, 2017 at 23:32 Chief Complaint: Fall/ Lf Hip Pain Primary Care Physician: Jm Bender D.O. History of Present Illness Source: patient, family The patient is an 81-year-old female who presents to the emergency department with left hip pain that began after a fall earlier in the evening. The patient and family reports that she slipped as she was trying to get up off the toilet, and landed on her left hip. Her daughter reports that the patient complained of left arm weakness and of left leg pain but refused to go to the doctor or the emergency department afterwards. She was recently in hospital from January 25 through January 31, with a new diagnosis of metastatic lung cancer to brain. She is now followed by Dr. Macias from pulmonology and Dr. Castro from radiation oncology. Her most recent radiation treatment was 2 days ago. The family reports a history of several broken bones, and usually follows with Dr. Lindo in [place]. Past Medical/Surgical History Medical Problems: (1) Bladder cancer Status: Resolved Social History Smoking Status: Current Every Day Smoker Smokeless Tobacco Use: No Alcohol Use: none Drug Use: none Marital Status: Housing status: lives with family Occupational Status: retired Multi-Drug Resistant Organisms History of MDRO: No Allergies Coded Allergies: Iodinated Diagnostic Agents (Verified Allergy, Unknown, HIVES TO ORAL CONTRAST, 02/06/14) Corticosteroids (Verified Adverse Reaction, Unknown, "CAN'T TAKE HIGH DOSES", 02/06/14) Home Medications Scheduled Dexamethasone (Dexamethasone), 4 MG PO Q6H Levothyroxine Sodium (Synthroid), 150 MCG PO DAILY Nitrofurantoin Monohyd Macrocr (Nitrofurantoin Monohydrat), 100 MG PO Q6H Scheduled PRN Naproxen Sodium (Aleve), 1 CAP PO UD PRN for Pain Review of Systems The patient is somewhat fatigued, but along with the help of her family answering, denies chest pain, palpitations, shortness of breath, cough, lower extremity swelling, vision change, hearing change, sore throat, fevers, chills, sweats, nausea, vomiting, abdominal pain, pelvic pain, blood in urine or stool, dysuria, urinary frequency or urgency, rash, abnormal bruising or bleeding, night sweats, or allergy symptoms. The review of systems is otherwise negative other than for that already noted above, and at least 10 systems have been reviewed. Physical Exam Vital Signs Date Time Temp Pulse Resp B/P Pulse Ox O2 Delivery O2 Flow Rate FiO2 02/02/17 23:00 162/90 02/02/17 22:36 179/80 02/02/17 22:20 51 26 94 02/02/17 22:16 63 02/02/17 22:12 94 Room Air 02/02/17 21:59 147/104 02/02/17 21:50 36.4 85 26 147/104 94 Room Air The patient is sleepy but awake, alert and oriented 3, normocephalic and atraumatic, is thin, lying in bed and in no acute distress. HEENT--PERRL, EOMI, mucous membranes and oropharynx dry. Neck--supple, no JVD or bruits, thyroid normal, trachea midline, no adenopathy. Heart--normal S1 and S2, no extra beats, no murmurs, rubs or gallops. Lungs--diminished throughout, no respiratory distress, no accessory muscle use. Abdomen--normal bowel sounds and soft, nontender and nondistended, no hernias or masses, no organomegaly. Extremities--no cyanosis, clubbing or edema. There are good distal pulses b/l. Dermatologic--normal skin turgor, normal color, warm and dry, no abnormal lymph nodes, no rash. Neurologic--cranial nerves II through XII grossly intact. Rheumatologic--pain with decreased range of motion left hip. Psychiatric--normal affect. Diagnostics Laboratory Results Results Past 24 Hours Test 02/02/17 22:20 02/02/17 22:21 Range/Units White Blood Count 21.20 4.8-10.8 K/uL Red Blood Count 4.70 4.2-5.4 M/uL Hemoglobin 13.4 12.0-16.0 g/dL Hematocrit 39.0 37-47 % Mean Corpuscular Volume 83.0 80-100 fL Mean Corpuscular Hemoglobin 28.5 25-34 pg Mean Corpuscular Hemoglobin Concent 34.4 32-36 g/dl Platelet Count 235 130-400 K/uL Mean Platelet Volume 11.4 7.4-10.4 fL Neutrophils (%) (Auto) 90.0 % Lymphocytes (%) (Auto) 5.4 % Monocytes (%) (Auto) 3.8 % Eosinophils (%) (Auto) 0.1 % Basophils (%) (Auto) 0.0 % Neutrophils # (Auto) 19.09 1.4-6.5 K/uL Lymphocytes # (Auto) 1.14 1.2-3.4 K/uL Monocytes # (Auto) 0.80 0.11-0.59 K/uL Eosinophils # (Auto) 0.02 0-0.5 K/uL Basophils # (Auto) 0.01 0-0.2 K/uL RDW Standard Deviation 44.1 36.4-46.3 fL RDW Coefficient of Variation 14.4 11.5-14.5 % Immature Granulocyte % (Auto) 0.7 % Immature Granulocyte # (Auto) 0.14 0.00-0.02 K/uL Prothrombin Time 10.2 9.0-12.0 SECONDS Bedside Prothrombin Time INR 0.9 0.9-1.1 Prothromb Time International Ratio 1.0 0.9-1.1 Activated Partial Thromboplast Time 22.6 21.0-31.0 SECONDS Partial Thromboplastin Ratio 0.9 Sodium Level 138 136-145 mmol/L Potassium Level 3.6 3.5-5.1 mmol/L Chloride Level 100 98-107 mmol/L Carbon Dioxide Level 28 21-32 mmol/L Anion Gap 10.0 3-11 mmol/L Blood Urea Nitrogen 43 7-18 mg/dl Creatinine 1.00 0.60-1.20 mg/dl Est Creatinine Clear Calc Drug Dose 35.6 ml/min Estimated GFR () 61.2 Estimated GFR (Non- 52.8 BUN/Creatinine Ratio 43.1 10-20 Random Glucose 175 70-99 mg/dl Calcium Level 9.0 8.5-10.1 mg/dl Total Creatine Kinase 70 26-192 U/L Creatine Kinase MB 2.1 0.5-3.6 ng/ml Creatine Kinase MB Ratio 3.0 0-3.0 Troponin I < 0.015 0-0.045 ng/ml Bedside Glucose 162 70-90 mg/dl Diagnostic Radiology Patient Name: JASSON CORTEZ Unit Number: [id number] Dictated: 02/02/172299 Transcribed: 02/02/172299 [facility] Printed Date/Time: [~ rep prt dt]/[~ rep prt tm] [~ rep ct labl] - [~ rep ct ivnm] [facility] [place] [address] Dictated: 02/02/172299 Transcribed: 02/02/172299 [facility] Printed Date/Time: [~ rep prt dt]/[~ rep prt tm] [~ rep ct labl] - [~ rep ct ivnm] [~ rep ct add3]] LEFT PELVIS/UNILATERAL HIP 2-3VIEWS CLINICAL HISTORY: fall, left hip pain COMPARISON STUDY: None. FINDINGS: Nondisplaced intertrochanteric fracture within the proximal left femur. The bones are osteopenic. Visualized pelvic bones are intact. No fractures within the pelvis or right hip. No dislocation. Surgical clips within the deep pelvis. IMPRESSION: Nondisplaced intertrochanteric fracture within the proximal left femur. Electronically signed by: Reynold Young M.D. 02/02/2017 11:01 PM Dictated Date/Time: 02/02/2017 11:00 PM The status of this report is Signed. Draft = Not yet reviewed or approved by Radiologist. Signed = Reviewed and approved by Radiologist. <AttendingPhy></AttendingPhy> <FamilyPhy>Elton Macias MD</FamilyPhy> <PrimaryPhy>Jm Bender D.O.</PrimaryPhy> <UnitNumber>[id number]</ UnitNumber> <VisitNumber>[id number]</VisitNumber> <PatientName>JASSON CORTEZ</PatientName> <DateOfBirth>1935</DateOfBirth> <Location>[facility]</ Location> <ServiceDate>02/02/17</ServiceDate> <MNE>SHREYASNDI</MNE> <OrderingPhy> Pa Garcia MD</OrderingPhy> <OrderingPhyMNE>f rep ord dr morris</ OrderingPhyMNE> <DictatingPhyMNE>f rep dict dr morris</DictatingPhyMNE> <CCListMNE> f rep ct mne</CCListMNE> <AdmittingPhyMNE>f pt admit dr morris</AdmittingPhyMNE> < AttendingPhyMNE>f pt attend dr morris</AttendingPhyMNE> <ConsultingPhyMNE>f pt consult dr morris</ConsultingPhyMNE> <FamilyPhyMNE>f pt fam dr morris</FamilyPhyMNE> <OtherPhyMNE>f pt other dr morris</OtherPhyMNE> < PrimaryPhyMNE>f pt prim care dr morris</PrimaryPhyMNE> <ReferringPhyMNE>f pt referring dr morris</ReferringPhyMNE> Patient Name: JASSON CORTEZ Unit Number: [id number] Dictated: 02/02/172256 Transcribed: 02/02/172256 [facility] Printed Date/Time: [~ rep prt dt]/[~ rep prt tm] [~ rep ct labl] - [~ rep ct ivnm] [facility] Radiology Department [place] [id number] Dictated: 02/02/172256 Transcribed: 02/02/172256 [facility] Printed Date/Time: [~ rep prt dt]/[~ rep prt tm] [~ rep ct labl] - [~ rep ct ivnm] LEFT HIP CT CT DOSE: 1209.33 mGy.cm HISTORY: Fall. left hip pain, lung ca TECHNIQUE: Multiaxial CT images of the left hip were performed and reformatted in the sagittal and coronal plane without the use of contrast. COMPARISON: Left hip 02/02/2017. FINDINGS: Nondisplaced intertrochanteric fracture within the proximal left femur. No dislocation. The visualized pelvic bones are intact. Small subcutaneous contusion within the lateral aspect of the hip. IMPRESSION: Nondisplaced intertrochanteric fracture within the proximal left femur. Electronically signed by: Reynold Young M.D. 02/02/2017 11:00 PM Dictated Date/Time: 02/02/2017 10:57 PM The status of this report is Signed. Draft = Not yet reviewed or approved by Radiologist. Signed = Reviewed and approved by Radiologist. <AttendingPhy></AttendingPhy> <FamilyPhy>Elton Macias MD</FamilyPhy> <PrimaryPhy>Jm Bender D.O.</PrimaryPhy> <UnitNumber>[id number]</ UnitNumber> <VisitNumber>[id number]</VisitNumber> <PatientName>JASSON CORTEZ</PatientName> <DateOfBirth>1935</DateOfBirth> <Location>[facility]</ Location> <ServiceDate>02/02/17</ServiceDate> <MNE>ESINDI</MNE> <OrderingPhy> Pa Garcia MD</OrderingPhy> <OrderingPhyMNE>f rep ord dr morris</ OrderingPhyMNE> <DictatingPhyMNE>f rep dict dr morris</DictatingPhyMNE> <CCListMNE> f rep ct mne</CCListMNE> <AdmittingPhyMNE>f pt admit dr morris</AdmittingPhyMNE> < AttendingPhyMNE>f pt attend dr morris</AttendingPhyMNE> <ConsultingPhyMNE>f pt consult dr morris</ConsultingPhyMNE> <FamilyPhyMNE>f pt fam dr morris</FamilyPhyMNE> <OtherPhyMNE>f pt other dr morris</OtherPhyMNE> < PrimaryPhyMNE>f pt prim care dr morris</PrimaryPhyMNE> <ReferringPhyMNE>f pt referring dr morris</ReferringPhyMNE> Patient Name: JASSON CORTEZ Unit Number: [id number] Dictated: 02/02/172252 Transcribed: 02/02/172252 [facility] Printed Date/Time: [~ rep prt dt]/[~ rep prt tm] [~ rep ct labl] - [~ rep ct ivnm] [facility] [place] [address] Dictated: 02/02/172252 Transcribed: 02/02/172252 [facility] Printed Date/Time: [~ rep prt dt]/[~ rep prt tm] [~ rep ct labl] - [~ rep ct ivnm] [~ rep ct add3]] HEAD CT NONCONTRAST CT DOSE: HISTORY: Fall. Stroke symptoms. TECHNIQUE: Multiaxial CT images of the head were performed without the use of intravenous contrast. Automated exposure control was utilized for this study. Comparison: Head CT 01/25/2017. Findings: Small amount of fluid within the right maxillary sinus. No fractures within the calvarium. Small subacute lacunar infarction within the right basal ganglia. This is new from the prior study. Atrophy and microvascular ischemic changes are again noted. There is no mass, hematoma, or midline shift. Impression: 1. No acute intracranial hemorrhage. 2. Small subacute lacunar infarct within the right basal ganglia which is new from the prior study. Electronically signed by: Reynold Young M.D. 02/02/2017 10:57 PM Dictated Date/Time: 02/02/2017 10:53 PM The status of this report is Signed. Draft = Not yet reviewed or approved by Radiologist. Signed = Reviewed and approved by Radiologist. <AttendingPhy></AttendingPhy> <FamilyPhy>Elton Macias MD</FamilyPhy> <PrimaryPhy>Jm Bender D.O.</PrimaryPhy> <UnitNumber>[id number]</ UnitNumber> <VisitNumber>[id number]</VisitNumber> <PatientName>JASSON CORTEZ</PatientName> <DateOfBirth>1935</DateOfBirth> <Location>[facility]</ Location> <ServiceDate>02/02/17</ServiceDate> <MNE>STEPHANIE</MNE> <OrderingPhy> Pa Garcia MD</OrderingPhy> <OrderingPhyMNE>f rep ord dr morris</ OrderingPhyMNE> <DictatingPhyMNE>f rep dict dr morris</DictatingPhyMNE> <CCListMNE> f rep ct alexandra</CCListMNE> <AdmittingPhyMNE>f pt admit dr morris</AdmittingPhyMNE> < AttendingPhyMNE>f pt attend dr morris</AttendingPhyMNE> <ConsultingPhyMNE>f pt consult dr morris</ConsultingPhyMNE> <FamilyPhyMNE>f pt fam dr morris</FamilyPhyMNE> <OtherPhyMNE>f pt other dr morris</OtherPhyMNE> < PrimaryPhyMNE>f pt prim care dr morris</PrimaryPhyMNE> <ReferringPhyMNE>f pt referring dr morris</ReferringPhyMNE> EKG EKG shows normal sinus rhythm with sinus arrhythmia at 83 bpm, PACs and PVCs, no acute ST-T changes. Impression Assessment and Plan Left closed intertrochanteric hip fracture--the patient will be admitted to the telemetry unit. CT of the hip does not show any pathologic fracture. Dr. Skelton from orthopedic surgery will be consulted. Dilaudid 0.25 0.5 mg IV every 2 hours when necessary for pain control, Zofran 4 mg IV every 6 hours when necessary, Protonix 40 mg IV daily. Her neurologic status will need to be further investigated and stabilized prior to any potential surgery. Small subacute right basal ganglia lacunar infarction--this is new compared to CT of 01/25/2017. The patient's exam demonstrates left arm weakness. Lung cancer with metastases to the brain--bronchoscopy was nondiagnostic during last hospitalization. With the CT today showing a new right basal ganglia lacunar infarction compared to the most recent CT, we will have to order an MRI of the brain combo to assess for any other changes that might be new, since the MRI of the brain performed at last hospitalization revealed the presence of metastases to the brain that the CT scan did not. We'll consult Dr. Macias from pulmonology who saw the patient last hospitalization. The patient's next radiation therapy with Dr. Castro was to be in 3 days. Continue dexamethasone 4 mg by mouth every 6 hours. Diabetes mellitus/hyperglycemia--blood sugar at admission was 175, and may be elevated secondary to use of dexamethasone. We'll place on Accu-Cheks before meals and at bedtime with NovoLog coverage. Neutrophilia Leukocytosis--likely secondary to use of dexamethasone. Bladder cancer status post urostomy--the urostomy tube is going to be changed and a fresh culture will be obtained since the patient has a UTI. Hypothyroidism--continue levothyroxine sodium 150 g by mouth daily. Level of Care Telemetry Advanced Directives Existing Advance Directive: No Existing Living Will: No Existing Power of Day Worker: No Resuscitation Status FULL RESUSCITATION VTE Prophylaxis Given or contraindicated: SCD's
[2017-02-03] VITALS (7 sets, daily range): BP systolic 121–195; BP diastolic 70–91; PULSE 44–73; TEMP 36.3–37; O2SAT 92–98; Ht 165.1 cm; Wt 58.9 kg
[2017-02-03] MEDS ORDERED: GLUCOSE 10 TABS/TUBE PO PRN (00:30)
[2017-02-03] MEDS ORDERED: GLUCOSE 40% GEL 15 GM TUBE PO PRN (00:30)
[2017-02-03] MEDS ORDERED: ONDANSETRON INJ 2 MG/ML 2 ML VIAL IV PRN (00:30)
[2017-02-03] MEDS ORDERED: ACETAMINOPHEN 325 MG TAB PO PRN (00:30)
[2017-02-03] MEDS ORDERED: GLUCAGON FOR INJ 1 MG VIAL SQ PRN (00:30)
[2017-02-03] MEDS ORDERED: DEXTROSE 50% 50 ML SYR IV PRN (00:30)
[2017-02-03] MEDS ORDERED: ACETAMINOPHEN IV 100 ML IV PRN (00:30)
[2017-02-03] MEDS: DEXAMETHASONE 4 MG TAB PO SCH ×3 (00:30→06:12)
[2017-02-03] MEDS ORDERED: HYDROmorphone INJ 1 MG/ML SYR IV PRN (00:30)
[2017-02-03 00:36] LABS: URINE APPEARANCE CLEAR (CLEAR); URINE BILIRUBIN NEG (NEG); URINE COLOR DK YELLOW; URINE EPITHELIAL CELL AUTO >30 /lpf (0-5); URINE NITRITE NEG (NEG); URINE SPECIFIC GRAVITY 1.014 (1.000-1.030); UROBILINOGEN NEG (NEG)
[2017-02-03 00:53] LABS: MANUAL MICROSCOPIC REQUIRED? NO; REVIEW REQ? YES
--- NOTE | 2017-02-03 01:06 | EMERGENCY ROOM VISIT NOTE ---
History Report prepared by Michael: Venita Angeles Under the Supervision of: Dr. Pa Garcia M.D. First contact with patient: 21:54 Stated Complaint: FALL/ LF HIP PAIN History of Present Illness The patient is an 81 year old female who presents to the Emergency Room with complaints of persistent left hip pain that started after a fall this evening. She was brought to the ED via EMS and is accompanied by several family members. EMS reports the patient fell after she slipped trying to get off the toilet this evening, and landed on her left hip. Her daughter reports the patient started complaining of left arm weakness earlier today and also complained of left sided leg pain. She declined wanting to go to the doctor, and 2 Aleve provided good pain relief. Her granddaughter reports she was recently seen here in the hospital and was discharged home 2 days ago. Her family notes the patient has broken several bones in the past and has always followed with Dr. Vizcarra in [place]. The patients family also reports she was recently diagnosed with lung cancer that has metastasized to several areas of her body, and she follows with Dr. Castro and Dr. Macias. Her daughter reports she has had not had a bowel movement in approximately 2 days. The patient denies LOC, headache, fevers, chills, diaphoresis, visual changes, neck pain, chest pain, breathing difficulties, nausea, vomiting, abdominal pain, back pain, melena, hematochezia, urinary symptoms, numbness, lymphadenopathy, rash, or other complaints. Source of History: patient, family Onset: Earlier this evening Position: other (left hip) Timing: other (persistent) Associated Symptoms: + weakness (left arm) Review of Systems See HPI for pertinent positives and negatives. A total of ten systems were reviewed and were otherwise negative. 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 Social History Smoking Status: Current Every Day Smoker Alcohol Use: none Drug Use: none Marital Status: Housing Status: lives with family Occupation Status: retired Current/Historical Medications Scheduled Dexamethasone (Dexamethasone), 4 MG PO Q6H Levothyroxine Sodium (Synthroid), 150 MCG PO DAILY Nitrofurantoin Monohyd Macrocr (Nitrofurantoin Monohydrat), 100 MG PO Q6H Scheduled PRN Naproxen Sodium (Aleve), 1 CAP PO UD PRN for Pain Allergies Coded Allergies: Iodinated Diagnostic Agents (Verified Allergy, Unknown, HIVES TO ORAL CONTRAST, 02/06/14) Corticosteroids (Verified Adverse Reaction, Unknown, "CAN'T TAKE HIGH DOSES", 02/06/14) Physical Exam Vital Signs Date Time Temp Pulse Resp B/P Pulse Ox O2 Delivery O2 Flow Rate FiO2 02/02/17 23:35 69 17 95 02/02/17 23:30 173/96 02/02/17 23:05 69 21 95 02/02/17 23:00 162/90 02/02/17 22:36 179/80 02/02/17 22:20 51 26 94 02/02/17 22:16 63 02/02/17 22:12 94 Room Air 02/02/17 21:59 147/104 02/02/17 21:50 36.4 85 26 147/104 94 Room Air Physical Exam GENERAL: Awake, alert, uncomfortable-appearing, in no distress HENT: Normocephalic, atraumatic. Oropharynx unremarkable. EYES: Normal conjunctiva. Sclera non-icteric. NECK: Supple. No nuchal rigidity. FROM. No JVD. RESPIRATORY: Clear to auscultation. CARDIAC: Regular rate, normal rhythm. Extremities warm and well perfused. Pulses equal. ABDOMEN: Soft, non-distended. No tenderness to palpation. No rebound or guarding. No masses. RECTAL: Deferred. MUSCULOSKELETAL: Chest examination reveals no tenderness. The back is symmetrical on inspection without obvious abnormality. There is no CVA tenderness to palpation. No joint edema. Upper extremities are nontender. LOWER EXTREMITIES: Calves are equal size bilaterally and non-tender. Minimal swelling at left ankle joint, nontender. Left hip is tender. Noted left leg shortening and external rotation. ROM left hip is limited secondary to pain. Remainder of left leg is nontender. Right leg is atraumatic. NEURO: Normal sensorium. Patient is hard of hearing. Drift in the left arm and noted left arm weakness. Unable to assess true drift or strength in left leg secondary to fracture. SKIN: No rash or jaundice noted. Medical Decision & Procedures ER Provider Diagnostic Interpretation: This X-Ray was reviewed and interpreted by myself as we do not have a radiologist on staff overnight. HIP/PELVIS X-RAY Left intertrochanteric hip fracture seen on X-Ray. These CT scans were reviewed and interpreted by the radiologist and reviewed by myself. HEAD CT NONCONTRAST CT DOSE: HISTORY: Fall. Stroke symptoms. TECHNIQUE: Multiaxial CT images of the head were performed without the use of intravenous contrast. Automated exposure control was utilized for this study. Comparison: Head CT 01/25/2017. Findings: Small amount of fluid within the right maxillary sinus. No fractures within the calvarium. Small subacute lacunar infarction within the right basal ganglia. This is new from the prior study. Atrophy and microvascular ischemic changes are again noted. There is no mass, hematoma, or midline shift. Impression: 1. No acute intracranial hemorrhage. 2. Small subacute lacunar infarct within the right basal ganglia which is new from the prior study. Electronically signed by: Reynold Young M.D. 02/02/2017 10:[address] DOSE: 1209.33 mGy.cm HISTORY: Fall. left hip pain, lung ca TECHNIQUE: Multiaxial CT images of the left hip were performed and reformatted in the sagittal and coronal plane without the use of contrast. COMPARISON: Left hip 02/02/2017. FINDINGS: Nondisplaced intertrochanteric fracture within the proximal left femur. No dislocation. The visualized pelvic bones are intact. Small subcutaneous contusion within the lateral aspect of the hip. IMPRESSION: Nondisplaced intertrochanteric fracture within the proximal left femur. Electronically signed by: Reynold Young M.D. 02/02/2017 11:00 PM Laboratory Results 02/02/17 22:20 Red Blood Count 4.70, Mean Corpuscular Volume 83.0, Mean Corpuscular Hemoglobin 28.5, Mean Corpuscular Hemoglobin Concent 34.4, Mean Platelet Volume 11.4, Neutrophils (%) (Auto) 90.0, Lymphocytes (%) (Auto) 5.4, Monocytes (%) (Auto) 3.8, Eosinophils (%) (Auto) 0.1, Basophils (%) (Auto) 0.0, Neutrophils # (Auto) 19.09, Lymphocytes # (Auto) 1.14, Monocytes # (Auto) 0.80, Eosinophils # (Auto) 0.02, Basophils # (Auto) 0.01 02/02/17 22:20 Test 02/02/17 22:20 02/02/17 22:21 02/03/17 00:20 White Blood Count 21.20 K/uL (4.8-10.8) Red Blood Count 4.70 M/uL (4.2-5.4) Hemoglobin 13.4 g/dL (12.0-16.0) Hematocrit 39.0 % (37-47) Mean Corpuscular Volume 83.0 fL (80-100) Mean Corpuscular Hemoglobin 28.5 pg (25-34) Mean Corpuscular Hemoglobin Concent 34.4 g/dl (32-36) Platelet Count 235 K/uL (130-400) Mean Platelet Volume 11.4 fL (7.4-10.4) Neutrophils (%) (Auto) 90.0 % Lymphocytes (%) (Auto) 5.4 % Monocytes (%) (Auto) 3.8 % Eosinophils (%) (Auto) 0.1 % Basophils (%) (Auto) 0.0 % Neutrophils # (Auto) 19.09 K/uL (1.4-6.5) Lymphocytes # (Auto) 1.14 K/uL (1.2-3.4) Monocytes # (Auto) 0.80 K/uL (0.11-0.59) Eosinophils # (Auto) 0.02 K/uL (0-0.5) Basophils # (Auto) 0.01 K/uL (0-0.2) RDW Standard Deviation 44.1 fL (36.4-46.3) RDW Coefficient of Variation 14.4 % (11.5-14.5) Immature Granulocyte % (Auto) 0.7 % Immature Granulocyte # (Auto) 0.14 K/uL (0.00-0.02) Prothrombin Time 10.2 SECONDS (9.0-12.0) Bedside Prothrombin Time INR 0.9 (0.9-1.1) Prothromb Time International Ratio 1.0 (0.9-1.1) Activated Partial Thromboplast Time 22.6 SECONDS (21.0-31.0) Partial Thromboplastin Ratio 0.9 Anion Gap 10.0 mmol/L (3-11) Est Creatinine Clear Calc Drug Dose 35.6 ml/min Estimated GFR () 61.2 Estimated GFR (Non- 52.8 BUN/Creatinine Ratio 43.1 (10-20) Calcium Level 9.0 mg/dl (8.5-10.1) Total Creatine Kinase 70 U/L (26-192) Creatine Kinase MB 2.1 ng/ml (0.5-3.6) Creatine Kinase MB Ratio 3.0 (0-3.0) Troponin I < 0.015 ng/ml (0-0.045) Bedside Glucose 162 mg/dl (70-90) Urine Color DK YELLOW Urine Appearance CLEAR (CLEAR) Urine pH 7.0 (4.5-7.5) Urine Specific Cody 1.014 (1.000-1.030) Urine Protein 1+ (NEG) Urine Glucose (UA) NEG (NEG) Urine Ketones NEG (NEG) Urine Occult Blood TRACE (NEG) Urine Nitrite NEG (NEG) Urine Bilirubin NEG (NEG) Urine Urobilinogen NEG (NEG) Urine Leukocyte Esterase NEG (NEG) Laboratory results reviewed by me Medications Administered Medications (Trade) Dose Ordered Sig/Pradeep Route Start Time Stop Time Status Last Admin Dose Admin Lactated Ringer's (Lr 1000ml) 1,000 ml @ 75 mls/hr [id number] IV 02/02/17 22:06 03/04/17 22:05 02/02/17 22:33 75 MLS/HR Hydromorphone HCl (Dilaudid Inj) 0.25 mg Q20M PRN IV 02/02/17 22:15 02/16/17 22:14 02/02/17 23:20 0.25 MG Hydromorphone HCl (Dilaudid Inj) 0.5 mg Q20M PRN IV 02/02/17 22:15 02/16/17 22:14 02/02/17 22:32 0.5 MG Ondansetron HCl (Zofran Inj) 4 mg NOW STAT IV 02/02/17 22:06 02/02/17 22:11 DC 02/02/17 22:31 4 MG Ceftriaxone Sodium (Rocephin Inj) 1 gm NOW STAT IV 02/02/17 23:07 02/02/17 23:08 DC 02/03/17 00:30 1 GM Aspirin (Aspirin Chew) 324 mg NOW STAT PO 02/02/17 23:08 02/02/17 23:09 DC 02/02/17 23:19 324 MG ECG Indication: weakness (fall) Rate (beats per minute): 83 Rhythm: sinus rhythm Findings: PVC, no acute ischemic change, prolonged QT ED Course 2157: The patient was evaluated in room A3. A complete history and physical exam was performed. 6: Zofran 4 mg IV, Lactated Ringers 1000 ml @ 75 mls/hr IV. 2215: Dilaudid 0.5 mg IV, Dilaudid 0.25 mg IV. 2307: Rocephin 1 gm IV. 2308: Aspirin 324 mg PO. 2310: I reevaluated the patient. I discussed her test results and my recommendation that she remain in the hospital for further evaluation and management and she verbalized complete understanding and agreement. 2315: I discussed the patients case with Costa Arredondo and [facility]. The patient will be further evaluated. 2319: I discussed the patients case with Dr. Sky, [facility] Hospitalist. The patient will be further evaluated. Medical Decision Triage Nursing notes reviewed. The patient's presentation and history were concerning for fall, hip pain and weakness. Etiologies such as fracture, contusion, metabolic, infection, hypo/hyperglycemia , electrolyte abnormalities, cardiac sources, intracerebral event, toxicologic, neurologic, as well as others were entertained. The patient was evaluated. Physical examination was concerning for not only a left hip fracture but also a possible CVA. The patient had drift and weakness of the left upper extremity. Unfortunately weakness testing in the left lower extremity was difficult due to the severe pain with movement of the left leg. She underwent imaging as above. She has a subacute infarct on head CT without bleed. Her x-ray imaging reveals a left intertrochanteric hip fracture. This was confirmed on CT and there was no evidence of pathologic fracture findings. The patient had a leukocytosis. Urinalysis was ordered. The patient has a urostomy. Nursing was instructed to change the bag and get a fresh specimen before initiating IV Rocephin. The patient was hydrated with LR, given Zofran, and treated with Dilaudid for pain. She did receive multiple doses. Consultation was obtained withDr. Dwight Sky of internal medicine as well as Dr. Colby Skelton of orthopedics. The patient will be admitted to the hospital for further workup of her multiple issues. Family was informed. They were pleased with the treatment. The chart was completed utilizing [employer] Speech voice recognition software. Grammatical errors, random word insertions, pronoun errors, and incomplete sentences are an occasional consequence of this system due to software limitations, ambient noise, and hardware issues. Any formal questions or concerns about the content, text, or information contained within the body of this dictation should be directly addressed to the physician for clarification. Consults Time Called: 2314 Consulting Physician: Dr. Sky [facility] Hospitalist Returned Call: [phone] I discussed the patients case with Dr. Sky [facility] Hospitalist. The patient will be further evaluated. Additional Consults: Time Called: 2309 Consulted Physician: Costa Arredondo and [facility] Returned Call: 2314 Additional Comments: I discussed the patients case with Costa Arredondo and [facility]. The patient will be further evaluated. Impression Primary Impression: CVA (cerebral vascular accident) Additional Impression: Hip fracture, left Scribe Attestation The scribe's documentation has been prepared under my direction and personally reviewed by me in its entirety. I confirm that the note above accurately reflects all work, treatment, procedures, and medical decision making performed by me. Departure Information Dispostion Being Evaluated By Hospitalist Referrals Jm Bender D.O. (PCP) Stroke History Time Last Known Well Last known well time was approximately 1200 today Stroke t-PA Criteria Reviewed Does NOT meet criteria for t-PA Reason t-PA Not Given Treatment not indicated (over 5 hours from onset) Problem Qualifiers Primary Impression: CVA (cerebral vascular accident) CVA mechanism: unspecified Qualified Codes: I63.9 - Cerebral infarction, unspecified Additional Impression: Hip fracture, left Encounter type: initial encounter Fracture type: closed Qualified Codes: S72.002A - Fracture of unspecified part of neck of left femur, initial encounter for closed fracture
[2017-02-03] MEDS: NSS + 20MEQ KCL 1000ML 1,000 ML IV SCH ×3 (02:14→23:46)
[2017-02-03] MEDS: HYDROmorphone INJ 0.5 MG/0.5 ML SYR IV PRN ×3 (02:56→22:39)
[2017-02-03] MEDS ORDERED: GADAVIST IV PRN (03:45)
[2017-02-03] MEDS: LEVOTHYROXINE 150 MCG TAB PO SCH ×2 (05:46→06:00)
[2017-02-03] MEDS ORDERED: NURSING VERBAL MED ORDER ONE ×3 (06:30→11:30)
[2017-02-03] MEDS: INSULIN ASPART 100 UNITS/ML 3 ML PEN SC SCH ×4 (07:00→23:54)
[2017-02-03] MEDS ORDERED: INFLUENZA VIRUS QUAD VACCINE 0.5 ML SYR IM. ONE (08:00)
[2017-02-03] MEDS ORDERED: INFLUENZA ADMINISTRATION CHARGE ONE (08:00)
--- NOTE | 2017-02-03 08:21 | DIAGNOSTIC IMAGING REPORT ---
MRI OF THE BRAIN WITHOUT AND WITH IV CONTRAST CLINICAL HISTORY: Trauma. Stroke symptoms. New basal ganglia infarct. Intracranial metastasis. COMPARISON STUDY: Head CT dated 02/02/2017, MRI the brain dated 01/27/2017 TECHNIQUE: MRI of the brain was performed from the vertex to the skull base utilizing various T1 and T2 weighted sequences. Following the IV administration of 5 mL of Gadavist contrast, additional enhanced images were obtained. FINDINGS: Sagittal T1, axial diffusion, proton density and T2 weighted axial, coronal FLAIR, and pre and post axial T1-weighted images were acquired. These were supplemented with post gadolinium coronal T1 weighted images. No intra or extra-axial mass lesions are visualized. There is a new focus of restricted water diffusion in the region of the right external capsule, consistent with an acute infarct. Additional foci of increased signal on diffusion-weighted images within the left hemisphere remain similar to the prior study, and may represent subacute infarcts. There is no evidence of ventricular dilatation. Proton density T2-weighted and FLAIR images reveal multiple foci of increased FLAIR signal, corresponding to enhancing lesions. These are felt to reflect metastatic deposits. There is also confluent increased T2 signal surrounding the ventricles consistent with small vessel disease. There are no abnormal flow voids. There are multiple bilateral enhancing lesions involving both cerebral hemispheres as well as both cerebellar hemispheres. The findings are consistent with widespread metastatic disease. The largest lesion is located within the left parietal lobe measuring 2.7 cm in maximal diameter. Many of these lesions appear minimally smaller than on the preceding study a finding which may relate to treatment response. A midline vermian lesion currently measures 9 mm. This previously measured 11 mm. IMPRESSION: 1. Innumerable bilateral enhancing masses with associated vasogenic edema. The findings are consistent with extensive metastasis. There is equivocal slight decrease in the size of these lesions a finding which may relate to treatment response 2. New focus of restricted water diffusion involving the right external capsule consistent with an acute infarct 3. Additional foci of restricted water diffusion remain similar to the prior January 27 study, and likely represent subacute infarcts.. Electronically signed by: Luis Tse M.D. 02/03/2017 8:19 AM Dictated Date/Time: 02/03/2017 8:08 AM
[2017-02-03] MEDS: LEVOTHYROXINE SODIUM INJ 75 MCG in SYRINGE 0 ML IV SCH (09:17)
[2017-02-03] MEDS: DEXAMETHASONE INJ 4 MG in SYRINGE 0 ML IV SCH ×3 (09:17→21:18)
--- NOTE | 2017-02-03 09:21 | ORTHOPEDIC CONSULTATION ---
DATE OF CONSULTATION: 02/03/2017 DATE OF CONSULTATION: 02/03/2017. CHIEF COMPLAINT: Left hip pain after a fall. HISTORY OF PRESENT ILLNESS: An 81-year-old white female who was recently in the hospital at the end of December and early this month with a new diagnosis of metastatic lung cancer with extensive mets to her brain. She sustained a fall yesterday evening. She was trying to get off the toilet and fell and landed on her left hip. She had acute onset of pain. She also had left arm and leg weakness but refused to go to the Emergency Room. She was seen last night in the ER and diagnosed with an intertrochanteric hip fracture from the fall, also diagnosed with a stroke with some left-sided weakness. She is now admitted to the progressive care unit. Very hard of hearing. She really denies any other complaints. PAST MEDICAL HISTORY: Significant for: 1. Bladder cancer. 2. Metastatic lung cancer, currently undergoing treatment including radiation treatment. 3. Significant smoking history. 4. Hypothyroidism. The remainder of the past medical history is per the admission H\T\P. PHYSICAL EXAMINATION: GENERAL: Reveals a pleasant elderly female. She is lying in bed, very hard of hearing. General musculoskeletal exam reveals no obvious deformity other than the left lower extremity. Left leg is slightly shortened and externally rotated. There is no bruising or wounds. No knee effusion. She really does not move her foot at all. She does not move her left upper extremity either significantly. No significant tenderness to her neck or spine. X-RAYS: X-rays of the left hip reveal a minimally displaced intertrochanteric hip fracture. It is a 2-part fracture. She has got diffuse osteopenia. There are no underlying signs of bone disease or bone metastases. LABORATORY DATA: Hemoglobin 13.4. Hematocrit 39.0. White cell count 21.2. ASSESSMENT: A 81-year-old white female with a recent diagnosis of metastatic lung cancer, currently undergoing treatment and now with a left intertrochanteric hip fracture and a stroke causing some left hemiparesis. She has been admitted to the PCU. PLAN: She has been admitted to the medicine service. We will proceed with medical optimization. We will begin DVT prophylaxis including TEDs and SCDs. I do think for comfort measures it is appropriate to fix her femur. When she is medically stable that would be our recommendation. I did talk to her power of commonwealth attorney by the name of Sharona Hutchison at [phone] and she is also interested in having her femur fixed. I will proceed with medical optimization and likely fix this tomorrow if acceptable with the medicine service. We will keep her n.p.o. after midnight. We will begin some Escoto's traction for comfort.
[2017-02-03] MEDS: PANTOprazole INJ 40 MG in SYRINGE 0 ML IV SCH (11:23)
--- NOTE | 2017-02-03 11:27 | Neurology Consultation ---
Neurology Consultation Date of Consultation: Feb 03, 2017. Attending Physician: Michaela Wills M.D. Primary Care Physician: Jm Bender D.O. Reason for Consultation: Stroke History of Present Illness Source: patient, clinic records, hospital records This is an 81-year-old female who presents to the hospital after a fall and hip fracture. Patient was recently diagnosed with lung cancer with metastases to the brain. She was noted to the hospital just last week with an MRI concerning for possible subacute small stroke. When the patient presented back to the hospital she was noted to be in A. fib in the ER with conversion to normal sinus rhythm. She was noted to have left hemiplegia in addition to her left hip fracture Patient is a fairly poor historian and is difficult to get her to say when her left-sided weakness occurred. In fact she denies that she had a stroke. Patient denies any numbness anywhere. Denies any changes with her speech or swallowing. Denies any loss of vision. MRI of the brain report and images were reviewed by myself. There are several small multi-vascular territories of subacute ischemic morales, including acute right external capsule, and a few subacute areas in the left hemisphere. In addition there is numerous T2 hyperintensities likely indicating multiple small vessel or embolic old strokes. Past Medical/Surgical History Medical Problems: (1) Dehydration Status: Acute (2) Dizziness Status: Acute (3) Headache Status: Acute (4) Hip fracture, left Status: Acute (5) Vomiting Status: Acute (6) Weight loss Status: Acute History of bladder cancer Recent diagnosis of lung cancer with brain metastases Diabetes Hypothyroid Family History Patient reports family history of cancer and stroke Social History Positive tobacco use Smokeless Tobacco Use: No Alcohol Use: none Drug Use: none Marital Status: Housing Status: lives with family Occupation Status: retired Allergies Coded Allergies: Iodinated Diagnostic Agents (Verified Allergy, Unknown, HIVES TO ORAL CONTRAST, 02/06/14) Corticosteroids (Verified Adverse Reaction, Unknown, "CAN'T TAKE HIGH DOSES", 02/06/14) Current Inpatient Medications Current Inpatient Medications Medications (Trade) Dose Ordered Sig/Pradeep Route Start Time Stop Time Status Last Admin Dose Admin Acetaminophen (Tylenol Tab) 650 mg Q4H PRN PO 02/03/17 00:30 03/05/17 00:29 Ondansetron HCl 4 mg 4 mg Q6H PRN IV 02/03/17 00:30 03/05/17 00:29 Acetaminophen (Ofirmev Iv) 100 ml @ 400 mls/hr Q8H PRN IV 02/03/17 00:30 03/05/17 00:29 Hydromorphone HCl (Dilaudid Inj) 0.25 mg Q2H PRN IV 02/03/17 00:30 02/17/17 00:29 Hydromorphone HCl 0.5 mg 0.5 mg Q2H PRN IV 02/03/17 00:30 02/17/17 00:29 02/03/17 02:56 0.5 MG Potassium Chloride/Sodium Chloride 1,000 ml @ 125 mls/hr Q8H IV 02/03/17 02:00 03/05/17 01:59 02/03/17 02:14 100 MLS/HR Pantoprazole Sodium/Syringe (Protonix Inj/ Syringe) 10 ml @ 5 mls/min DAILY@11 IV 02/03/17 11:00 03/05/17 10:59 Insulin Aspart (novoLOG ASPART) SLIDING SCALE If C... ACHS SC 02/03/17 07:00 03/05/17 06:59 Glucose (Glucose 40% Gel) UD PRN PO 02/03/17 00:30 03/05/17 00:29 Glucose (Glucose Chew Tab) 1 tabs UD PRN PO 02/03/17 00:30 03/05/17 00:29 Dextrose (Dextrose 50% 50ML Syringe) 50 ml UD PRN IV 02/03/17 00:30 03/05/17 00:29 Glucagon (Glucagon Inj) 1 mg UD PRN SQ 02/03/17 00:30 03/05/17 00:29 Gadobutrol 5 mmol 5 mmol UD PRN IV 02/03/17 03:45 02/07/17 03:44 Dexamethasone Sodium Phosphate 4 mg/Syringe 1 ml @ 1 mls/min Q6H IV 02/03/17 09:00 03/05/17 08:59 02/03/17 09:17 1 MLS/MIN Levothyroxine Sodium/Syringe (Synthroid Inj/ Syringe) 3.75 ml @ 2 mls/min DAILY@09 IV 02/03/17 09:00 03/05/17 08:59 02/03/17 09:17 2 MLS/MIN Review of Systems Complete review of systems otherwise negative except for the above noted in history of present illness Physical Exam Vital Signs (Past 24 Hrs): Date Time Temp Pulse Resp B/P Pulse Ox O2 Delivery O2 Flow Rate FiO2 02/03/17 08:00 Room Air 02/03/17 07:44 36.7 62 20 121/70 96 Room Air 02/03/17 03:53 36.4 63 18 158/79 98 Room Air 02/03/17 01:55 95 Room Air 02/03/17 01:55 95 Room Air 02/03/17 01:55 36.3 56 20 165/80 02/03/17 01:40 50 16 95 02/03/17 01:31 113/59 02/03/17 01:10 53 13 94 02/03/17 01:00 132/75 02/03/17 00:40 55 14 94 02/03/17 00:30 151/76 02/03/17 00:10 58 16 93 02/03/17 00:00 171/97 02/02/17 23:40 63 14 93 02/02/17 23:35 69 17 95 02/02/17 23:30 173/96 02/02/17 23:05 69 21 95 02/02/17 23:00 162/90 02/02/17 22:36 179/80 02/02/17 22:20 51 26 94 02/02/17 22:16 63 02/02/17 22:12 94 Room Air 02/02/17 21:59 147/104 02/02/17 21:50 36.4 85 26 147/104 94 Room Air Exam was somewhat limited by cooperation/cognition and diffuse global decrease hearing Gen.: Patient is alert and lying in bed, in no acute distress. HEENT: Normocephalic /atraumatic, no scleral icterus Heart: Regular rate and rhythm Extremities: Left leg in traction Neurological examination: Mental status: Patient is alert and oriented to person and place. Attention and concentration normal for the situation. Extremely poor historian. Speech is fluent with possible mild dysarthria Cranial nerve: Visual sepulveda grossly intact. Funduscopic examination was unremarkable. No papilledema. Pupils equally round and reactive to light. Extraocular muscles intact without nystagmus. Mild to moderate left facial droop. Facial sensation intact. Tongue is midline. Good palatal elevation. Good shoulder shrug bilaterally. Hearing grossly intact to voice. Strength: 5/5 both proximal and distally in the right upper and lower extremity. Right upper extremity was completely flaccid with no movement. Left lower extremity strength testing was limited by hip fracture and leg in traction. Patient was able to minimally move her toes (2/5) Sensation: Grossly intact to light touch in all extremities although sensation testing was inconsistent and I suspect decreased sensation or sensory neglect on the left. Deep tendon reflexes: +1 in bilateral biceps, brachioradialis and patellar. Coordination: Patient had good finger to nose without dysmetria Station within the bed was normal Laboratory Results Past 24 Hours: 02/02/17 22:20 Red Blood Count 4.70, Mean Corpuscular Volume 83.0, Mean Corpuscular Hemoglobin 28.5, Mean Corpuscular Hemoglobin Concent 34.4, Mean Platelet Volume 11.4, Neutrophils (%) (Auto) 90.0, Lymphocytes (%) (Auto) 5.4, Monocytes (%) (Auto) 3.8, Eosinophils (%) (Auto) 0.1, Basophils (%) (Auto) 0.0, Neutrophils # (Auto) 19.09, Lymphocytes # (Auto) 1.14, Monocytes # (Auto) 0.80, Eosinophils # (Auto) 0.02, Basophils # (Auto) 0.01 02/02/17 22:20 Test 02/02/17 22:20 02/03/17 00:20 02/03/17 06:05 White Blood Count 21.20 K/uL (4.8-10.8) Red Blood Count 4.70 M/uL (4.2-5.4) Hemoglobin 13.4 g/dL (12.0-16.0) Hematocrit 39.0 % (37-47) Mean Corpuscular Volume 83.0 fL (80-100) Mean Corpuscular Hemoglobin 28.5 pg (25-34) Mean Corpuscular Hemoglobin Concent 34.4 g/dl (32-36) Platelet Count 235 K/uL (130-400) Mean Platelet Volume 11.4 fL (7.4-10.4) Neutrophils (%) (Auto) 90.0 % Lymphocytes (%) (Auto) 5.4 % Monocytes (%) (Auto) 3.8 % Eosinophils (%) (Auto) 0.1 % Basophils (%) (Auto) 0.0 % Neutrophils # (Auto) 19.09 K/uL (1.4-6.5) Lymphocytes # (Auto) 1.14 K/uL (1.2-3.4) Monocytes # (Auto) 0.80 K/uL (0.11-0.59) Eosinophils # (Auto) 0.02 K/uL (0-0.5) Basophils # (Auto) 0.01 K/uL (0-0.2) RDW Standard Deviation 44.1 fL (36.4-46.3) RDW Coefficient of Variation 14.4 % (11.5-14.5) Immature Granulocyte % (Auto) 0.7 % Immature Granulocyte # (Auto) 0.14 K/uL (0.00-0.02) Prothrombin Time 10.2 SECONDS (9.0-12.0) Bedside Prothrombin Time INR 0.9 (0.9-1.1) Prothromb Time International Ratio 1.0 (0.9-1.1) Activated Partial Thromboplast Time 22.6 SECONDS (21.0-31.0) Partial Thromboplastin Ratio 0.9 Anion Gap 10.0 mmol/L (3-11) Est Creatinine Clear Calc Drug Dose 35.6 ml/min Estimated GFR () 61.2 Estimated GFR (Non- 52.8 BUN/Creatinine Ratio 43.1 (10-20) Calcium Level 9.0 mg/dl (8.5-10.1) Total Creatine Kinase 70 U/L (26-192) Creatine Kinase MB 2.1 ng/ml (0.5-3.6) Creatine Kinase MB Ratio 3.0 (0-3.0) Troponin I < 0.015 ng/ml (0-0.045) Urine Color DK YELLOW Urine Appearance CLEAR (CLEAR) Urine pH 7.0 (4.5-7.5) Urine Specific Fate 1.014 (1.000-1.030) Urine Protein 1+ (NEG) Urine Glucose (UA) NEG (NEG) Urine Ketones NEG (NEG) Urine Occult Blood TRACE (NEG) Urine Nitrite NEG (NEG) Urine Bilirubin NEG (NEG) Urine Urobilinogen NEG (NEG) Urine Leukocyte Esterase NEG (NEG) Urine WBC (Auto) 1-5 /hpf (0-5) Urine RBC (Auto) 0-4 /hpf (0-4) Urine Hyaline Casts (Auto) 1-5 /lpf (0-5) Urine Epithelial Cells (Auto) >30 /lpf (0-5) Urine Bacteria (Auto) NEG (NEG) Urine Renal Epithelial Cells /lpf (0-5) Urine Yeast (Auto) BUDDING (NONE PRSENT) Bedside Glucose 103 mg/dl (70-90) Date/Time Source Procedure Growth Status 02/03/17 03:53 Nasal MRSA DNA Surveillance Screen - Final Specimen Negative for MRSA by DNA Probe Complete Imaging As noted above in history of present illness Impression This is a 81-year-old female with what appears to be small embolic strokes with signs of old small vessel or lacunar infarcts. Likely etiology could be either artery embolic from paroxysmal A. fib versus hypercoagulable state from cancer. Other known stroke risk factors include diabetes. Residual neurological deficits include left hemiplegia and left hemisensory loss. Could also have a component of cognitive dysfunction from strokes and brain metastases. Plan To complete stroke workup I have ordered he will bit A1c and lipid panel for tomorrow morning for modifiable stroke risk factors. I have also ordered an ultrasound of the carotids to rule out critical stenosis. Echocardiogram is pending Recommend considering anticoagulation in 5-7 days for stroke prevention. Patient is at high risk for intracranial bleeds though if placed on anticoagulation. Discussion should be held with the family on goals of care, because if the patient is not on anticoagulation she is at high risk for additional strokes in the future, but if placed on anticoagulation she is also at high risk for intracranial bleeds. If patient is not placed on anticoagulation, would recommend at least an aspirin 81 mg daily. Could consider a palliative care consult as this may be helpful for care team and family. No neurological contraindications to proceeding with proposed surgery for hip fracture. Patient does have risk of surgical complications, and will be a high risk of stroke perioperatively especially in the setting of a hip fracture ( which also can cause embolic stroke), but there is no reasonable alternatives considering her pain and functioning. Recommend PT/OT and speech therapies Blood pressure recommendations while in hospital 175/95-150/80 Avoid hypotension and dehydration as this can worsen stroke Stroke risk factor modifications and recommendations: Blood pressure recommendations for the first month post hospital discharge 150/ 90-130/80, and after that blood pressure recommendations 130/80-110/70 Total cholesterol goal 100- 200 and LDL goal less than 70 Hemoglobin A1c goal less than 7 Encourage cardiovascular exercise at least 3 times a week for 30 minutes. If there is any questions or concerns, feel free to call/page me.
--- NOTE | 2017-02-03 12:39 | DIAGNOSTIC IMAGING REPORT ---
CHEST ONE VIEW PORTABLE CLINICAL HISTORY: Pneumonia COMPARISON STUDY: 01/25/2017, chest CT dated 01/25/2017 FINDINGS: The cardiac and mediastinal contours remain stable. There is a right hilar mass, similar to the preceding study. The left lung remains clear. No pleural effusions are visualized.[ IMPRESSION: Stable right hilar mass. Electronically signed by: Luis Tse M.D. 02/03/2017 12:37 PM Dictated Date/Time: 02/03/2017 12:36 PM
--- NOTE | 2017-02-03 12:55 | DIAGNOSTIC IMAGING REPORT ---
ULTRASOUND OF THE CAROTID ARTERIES CLINICAL HISTORY: stroke COMPARISON STUDY: None. TECHNIQUE: Real-time, grayscale, and color Doppler sonography of the carotid arteries was performed. Imaging reviewed in the transverse and longitudinal planes. NASCET criteria was utilized for stenosis calcification. FINDINGS: There is mild to moderate atherosclerotic plaque present . The peak systolic velocity within the right internal carotid artery is 53 cm/sec. The systolic velocity ratio of right internal to common carotid artery is 1.1. The peak systolic velocity within the left internal carotid artery is 85 cm/sec. The systolic velocity ratio left internal to common carotid artery is 0.8. Antegrade flow is seen in the vertebral arteries. The external carotid arteries are patent. IMPRESSION: No evidence of hemodynamically significant carotid stenosis. Electronically signed by: Luis Tse M.D. 02/03/2017 12:53 PM Dictated Date/Time: 02/03/2017 12:48 PM
[2017-02-03] MEDS ORDERED: VANCOMYCIN CONSULT ACTIVE PRN (13:00)
[2017-02-03] MEDS ORDERED: CEFEPIME IV 2,000 MG in DEXTROSE 5% 100ML 100 ML IV SCH (13:00)
[2017-02-03] MEDS ORDERED: CEFEPIME CONSULT ACTIVE PRN ×2 (13:00)
--- NOTE | 2017-02-03 13:22 | Pulmonary Consultation ---
History General Date of Service: Feb 03, 2017. Stated Complaint: Cva, Metastatic Cancer To Brain Of Unknown Cell HPI The patient is a 81 year old female who presents to [facility] with complaints of Cva, Metastatic Cancer To Brain Of Unknown Cell. The patient's primary care provider is Jm Bender D.O.. 81-year-old female recently admitted to [facility] with right lower lobe medial aspect mass and diffuse signs of metastatic disease. She was discharged to be followed up in the pulmonary clinic for workup and more definitive evaluation. She did undergo bronchoscopy on 01/29/2017 which was nondiagnostic. Yesterday she was noted to slip and fall on the toilet was brought in and has a left intertrochanteric hip fracture. During our conversation the patient is confused but secondary to oldest daughter was at the bedside. We had a full discussion of the recent history as well as the possibility to perform YANIRA bronchoscopy with ENB after tomorrow's or possibly Mondays trochanteric hip fixation. Denies: Fever, chills, productive cough, pleurisy, cardiac chest pain, hemoptysis Historian: patient, family, EMS Review of Systems Constitutional: reports: weakness Eyes: reports: no symptoms ENT: reports: no symptoms Cardiovascular: reports: no symptoms Respiratory: reports: no symptoms Gastrointestinal: reports: no symptoms Genitourinary - Female: reports: no symptoms Musculoskeletal: reports: other (left lower extremity pain) Integumentary: reports: no symptoms Neurologic: reports: no symptoms Psychiatric: reports: no symptoms Endocrine: no symptoms Hematologic / Lymphatic: no symptoms Allergic / Immunologic: no symptoms Past Medical History Past Medical History: 1. Childbirth x6. 2. Hypothyroidism. 3. Bladder cancer #4 radiographic evidence of diffuse/metastatic carcinoma of unknown etiology Past Surgical History: Bladder resection with urostomy 2006 Social History Patient is unsure about her family's past medical history Hx Tobacco Use In Past Year?: Yes Smoking Status: Current Every Day Smoker Marital status: Housing status: lives with family Occupational Status: retired History of MDRO History of MDRO: No Allergies Coded Allergies: Iodinated Diagnostic Agents (Verified Allergy, Unknown, HIVES TO ORAL CONTRAST, 02/06/14) Corticosteroids (Verified Adverse Reaction, Unknown, "CAN'T TAKE HIGH DOSES", 02/06/14) Current Medications Reported Home Medications Medications Dose Route/Sig Max Daily Dose Days Date Category Dexamethasone 4 Mg Tab 4 Mg PO Q6H 30 01/31/17 Rx Nitrofurantoin Monohydrat (Nitrofurantoin Monohyd Macrocr) 100 Mg Cap 100 Mg PO Q6H 7 01/31/17 Rx Aleve (Naproxen Sodium) 220 Mg Cap 1 Cap PO UD PRN 01/29/14 Reported Synthroid (Levothyroxine Sodium) 150 Mcg Tab 150 Mcg PO DAILY 01/29/14 Reported Physical Physical Exam Vital Signs: Date Time Temp Pulse Resp B/P Pulse Ox O2 Delivery O2 Flow Rate FiO2 02/03/17 11:30 36.7 66 18 132/73 94 Room Air 02/03/17 08:00 Room Air 02/03/17 07:44 36.7 62 20 121/70 96 Room Air 02/03/17 03:53 36.4 63 18 158/79 98 Room Air 02/03/17 01:55 95 Room Air 02/03/17 01:55 95 Room Air 02/03/17 01:55 36.3 56 20 165/80 02/03/17 01:40 50 16 95 02/03/17 01:31 113/59 02/03/17 01:10 53 13 94 02/03/17 01:00 132/75 02/03/17 00:40 55 14 94 02/03/17 00:30 151/76 02/03/17 00:10 58 16 93 02/03/17 00:00 171/97 02/02/17 23:40 63 14 93 02/02/17 23:35 69 17 95 02/02/17 23:30 173/96 02/02/17 23:05 69 21 95 02/02/17 23:00 162/90 02/02/17 22:36 179/80 02/02/17 22:20 51 26 94 02/02/17 22:16 63 02/02/17 22:12 94 Room Air 02/02/17 21:59 147/104 02/02/17 21:50 36.4 85 26 147/104 94 Room Air General Appearance: NO APPARENT DISTRESS Head: NORMOCEPHALIC, ATRAUMATIC Eyes: PERRLA, NO DISCHARGE, EOMI, SCLERAE NORMAL ENT: NORMAL EAR EXAM, NORMAL NASAL EXAM, NORMAL MOUTH EXAM, NORMAL THROAT EXAM Neck: NORMAL RANGE OF MOTION, NO TENDERNESS, TRACHEA MIDLINE Respiratory: BREATH SOUNDS NORMAL, CLEAR TO AUSCULTATION, CLEAR TO PERCUSSION Cardiovasular: REGULAR RATE/RHYTHM, NORMAL S1S2, NO M/G/R, NO MURMUR, NO GALLOP Abdomen: NON TENDER, NORMAL BOWEL SOUNDS, NO REBOUND, NO MASSES, NO GUARDING, NO ORGANOMEGALY Genitourinary - Female: EXTERNAL GENITALIA NORMAL Back: other (unable to inspect her back as patient is currently in a traction device) Upper Extremities: NO EDEMA, NO DEFORMITY, NORMAL ROM Lower Extremities: other (left lower extremity currently brace and then traction device) Pulses: carotid (R) (2+), carotid (L) (2+), posterior tibial (R), posterior tibial (L) (2+) Neuro: ALERT, other (orientated to person) Reflexes: biceps (R) (2+), bicpes (L) (2+), achilles (R) (2+), achilles (L) (2+ ) Babinski Testing: right (downgoing), left Psychiatric: flat affect Diagnostics Labs Results Past 24 Hours Test 02/02/17 22:20 02/02/17 22:21 02/03/17 00:20 02/03/17 06:05 Range/Units White Blood Count 21.20 4.8-10.8 K/uL Red Blood Count 4.70 4.2-5.4 M/uL Hemoglobin 13.4 12.0-16.0 g/dL Hematocrit 39.0 37-47 % Mean Corpuscular Volume 83.0 80-100 fL Mean Corpuscular Hemoglobin 28.5 25-34 pg Mean Corpuscular Hemoglobin Concent 34.4 32-36 g/dl Platelet Count 235 130-400 K/uL Mean Platelet Volume 11.4 7.4-10.4 fL Neutrophils (%) (Auto) 90.0 % Lymphocytes (%) (Auto) 5.4 % Monocytes (%) (Auto) 3.8 % Eosinophils (%) (Auto) 0.1 % Basophils (%) (Auto) 0.0 % Neutrophils # (Auto) 19.09 1.4-6.5 K/uL Lymphocytes # (Auto) 1.14 1.2-3.4 K/uL Monocytes # (Auto) 0.80 0.11-0.59 K/uL Eosinophils # (Auto) 0.02 0-0.5 K/uL Basophils # (Auto) 0.01 0-0.2 K/uL RDW Standard Deviation 44.1 36.4-46.3 fL RDW Coefficient of Variation 14.4 11.5-14.5 % Immature Granulocyte % (Auto) 0.7 % Immature Granulocyte # (Auto) 0.14 0.00-0.02 K/uL Prothrombin Time 10.2 9.0-12.0 SECONDS Bedside Prothrombin Time INR 0.9 0.9-1.1 Prothromb Time International Ratio 1.0 0.9-1.1 Activated Partial Thromboplast Time 22.6 21.0-31.0 SECONDS Partial Thromboplastin Ratio 0.9 Sodium Level 138 136-145 mmol/L Potassium Level 3.6 3.5-5.1 mmol/L Chloride Level 100 98-107 mmol/L Carbon Dioxide Level 28 21-32 mmol/L Anion Gap 10.0 3-11 mmol/L Blood Urea Nitrogen 43 7-18 mg/dl Creatinine 1.00 0.60-1.20 mg/dl Est Creatinine Clear Calc Drug Dose 35.6 ml/min Estimated GFR () 61.2 Estimated GFR (Non- 52.8 BUN/Creatinine Ratio 43.1 10-20 Random Glucose 175 70-99 mg/dl Calcium Level 9.0 8.5-10.1 mg/dl Total Creatine Kinase 70 26-192 U/L Creatine Kinase MB 2.1 0.5-3.6 ng/ml Creatine Kinase MB Ratio 3.0 0-3.0 Troponin I < 0.015 0-0.045 ng/ml Bedside Glucose 162 103 70-90 mg/dl Urine Color DK YELLOW Urine Appearance CLEAR CLEAR Urine pH 7.0 4.5-7.5 Urine Specific Hixson 1.014 1.000-1.030 Urine Protein 1+ NEG Urine Glucose (UA) NEG NEG Urine Ketones NEG NEG Urine Occult Blood TRACE NEG Urine Nitrite NEG NEG Urine Bilirubin NEG NEG Urine Urobilinogen NEG NEG Urine Leukocyte Esterase NEG NEG Urine WBC (Auto) 1-5 0-5 /hpf Urine RBC (Auto) 0-4 0-4 /hpf Urine Hyaline Casts (Auto) 1-5 0-5 /lpf Urine Epithelial Cells (Auto) >30 0-5 /lpf Urine Bacteria (Auto) NEG NEG Urine Renal Epithelial Cells 0-5 /lpf Urine Yeast (Auto) BUDDING NONE PRSENT Test 02/03/17 11:08 02/03/17 12:44 Range/Units Bedside Glucose 109 70-90 mg/dl Microbiology Results 02/03/17 MRSA DNA Surveillance Screen - Final, Complete Specimen Negative for MRSA by DNA Probe 02/03/17 Urine Culture, Received Pending Diagnostic Radiology Brain MRI 1. Innumerable bilateral enhancing masses with associated vasogenic edema. The findings are consistent with extensive metastasis. There is equivocal slight decrease in the size of these lesions a finding which may relate to treatment response 2. New focus of restricted water diffusion involving the right external capsule consistent with an acute infarct 3. Additional foci of restricted water diffusion remain similar to the prior January 27 study, and likely represent subacute infarcts. Chest x-ray: Stable right hilar and right lower lobe medial subsegment mass Carotid ultrasound: No evidence of hemodynamically significant carotid stenosis. Hip CT: Nondisplaced intertrochanteric fracture within the proximal left femur. EKG Sinus rhythm with Premature supraventricular complexes , some conducted aberrantly Possible Left atrial enlargement Prolonged QT Abnormal ECG When compared with ECG of 25-JAN-2017 17:12, Premature supraventricular complexes are now Present Impression Assessment and Plan 81-year-old female here for fall with left intra-trochanteric hip fracture: #1 intertrochanteric hip fracture: Orthopedic surgeon Dr. Skelton is to take the patient to be or tomorrow for ORIF. #2 Lung Mass: Patient has lung mass with metastatic disease based on radiologic evaluation. She is currently working with Dr. Aisha Castro of the radiation oncology Department. At this time is suggest we perform Sandie's/ENB evaluation when the patient is in the OR having the ORIF of the left intertrochanteric hip performed. I spoken to the patient as well as the patient's family and they're deciding if they would like to move forward with more definitive diagnosis.
[2017-02-03] MEDS ORDERED: VANCOMYCIN INJ 1,150 MG in SODIUM CHLORIDE 0.9% 250ML 250 ML IV SCH (13:30)
--- NOTE | 2017-02-03 15:21 | Family Medicine Progress Note ---
Progress Note Date of Service Feb 03, 2017. Subjective Pt evaluation today including: conversation w/ patient, physical exam, lab review, conversation w/ managed security sales consultant Pain: Denies Patient was seen at the bedside. She is a very poor historian. She denied any pain. Complains of left sided weakness but sensation in intact. She knows her full name and where she is but couldn't recall yr/month. She does have vision problem but she states she has it for long time, no acute. Constitutional: No fever Respiratory: No cough, No shortness of breath Cardiovascular: No chest pain, No edema Abdomen: No constipation, No diarrhea, No nausea, No pain, No vomiting Musculoskeletal: No muscle pain Neurologic: + weakness (left sided weakness), No numbness/tingling Skin: No rash Medications Current Inpatient Medications Medications (Trade) Dose Ordered Sig/Pradeep Route Start Time Stop Time Status Last Admin Dose Admin Acetaminophen (Tylenol Tab) 650 mg Q4H PRN PO 02/03/17 00:30 03/05/17 00:29 Ondansetron HCl 4 mg 4 mg Q6H PRN IV 02/03/17 00:30 03/05/17 00:29 Acetaminophen (Ofirmev Iv) 100 ml @ 400 mls/hr Q8H PRN IV 02/03/17 00:30 03/05/17 00:29 Hydromorphone HCl (Dilaudid Inj) 0.25 mg Q2H PRN IV 02/03/17 00:30 02/17/17 00:29 Hydromorphone HCl 0.5 mg 0.5 mg Q2H PRN IV 02/03/17 00:30 02/17/17 00:29 02/03/17 02:56 0.5 MG Potassium Chloride/Sodium Chloride 1,000 ml @ 125 mls/hr Q8H IV 02/03/17 02:00 03/05/17 01:59 02/03/17 02:14 100 MLS/HR Pantoprazole Sodium/Syringe (Protonix Inj/ Syringe) 10 ml @ 5 mls/min DAILY@11 IV 02/03/17 11:00 03/05/17 10:59 02/03/17 11:23 5 MLS/MIN Glucose (Glucose 40% Gel) UD PRN PO 02/03/17 00:30 03/05/17 00:29 Glucose (Glucose Chew Tab) 1 tabs UD PRN PO 02/03/17 00:30 03/05/17 00:29 Dextrose (Dextrose 50% 50ML Syringe) 50 ml UD PRN IV 02/03/17 00:30 03/05/17 00:29 Glucagon (Glucagon Inj) 1 mg UD PRN SQ 02/03/17 00:30 03/05/17 00:29 Gadobutrol 5 mmol 5 mmol UD PRN IV 02/03/17 03:45 02/07/17 03:44 Dexamethasone Sodium Phosphate 4 mg/Syringe 1 ml @ 1 mls/min Q6H IV 02/03/17 09:00 03/05/17 08:59 02/03/17 09:17 1 MLS/MIN Levothyroxine Sodium/Syringe (Synthroid Inj/ Syringe) 3.75 ml @ 2 mls/min DAILY@09 IV 02/03/17 09:00 03/05/17 08:59 02/03/17 09:17 2 MLS/MIN Insulin Aspart SLIDING SCALE If C... Q6 SC 02/03/17 12:00 03/05/17 06:59 Future hold Cefepime HCl 2000 mg/Dextrose 112.5 ml @ 200 mls/hr TODAY@1300 IV 02/03/17 13:00 02/03/17 13:34 02/03/17 13:08 200 MLS/HR Vancomycin HCl 1000 mg/Sodium Chloride 270 ml @ 125 mls/hr Q12 IV 02/03/17 21:00 02/10/17 20:59 UNV Vancomycin HCl/ Sodium Chloride (Vancomycin Inj/ Nss 250ml) 273 ml @ 125 mls/hr 1330 IV 02/03/17 13:30 02/03/17 15:42 Vancomycin HCl (Consult) 1 ea UD PRN N/A 02/03/17 13:00 03/05/17 12:59 Cefepime HCl (Consult) 1 ea UD PRN N/A 02/03/17 13:00 03/05/17 12:59 Objective Vital Signs Date Time Temp Pulse Resp B/P Pulse Ox O2 Delivery O2 Flow Rate FiO2 02/03/17 12:00 Room Air 02/03/17 11:30 36.7 66 18 132/73 94 Room Air 02/03/17 08:00 Room Air 02/03/17 07:44 36.7 62 20 121/70 96 Room Air 02/03/17 03:53 36.4 63 18 158/79 98 Room Air 02/03/17 01:55 95 Room Air 02/03/17 01:55 95 Room Air 02/03/17 01:55 36.3 56 20 165/80 02/03/17 01:40 50 16 95 02/03/17 01:31 113/59 02/03/17 01:10 53 13 94 02/03/17 01:00 132/75 02/03/17 00:40 55 14 94 02/03/17 00:30 151/76 02/03/17 00:10 58 16 93 02/03/17 00:00 171/97 02/02/17 23:40 63 14 93 02/02/17 23:35 69 17 95 02/02/17 23:30 173/96 02/02/17 23:05 69 21 95 02/02/17 23:00 162/90 02/02/17 22:36 179/80 02/02/17 22:20 51 26 94 02/02/17 22:16 63 02/02/17 22:12 94 Room Air 02/02/17 21:59 147/104 02/02/17 21:50 36.4 85 26 147/104 94 Room Air Physical Exam General Appearance: WD/WN, no apparent distress, + thin Neck: supple, trachea midline Respiratory/Chest: chest non-tender, lungs clear, no respiratory distress, no accessory muscle use Cardiovascular: regular rate, rhythm, no edema, + bradycardia Abdomen: normal bowel sounds, non tender, soft, + pertinent finding (urostomy bag is intact) Extremities: non-tender, no pedal edema Neurologic/Psychiatric: alert, + facial droop (left sided), + motor weakness ( left sided weakness), + pertinent finding (strength 5/5 right upper ext, 1/5 left upper ext, limited examination on the lower ext given hip fracture, sensation intact) Skin: normal color, warm/dry Laboratory Results Results Past 24 Hours Test 02/02/17 22:20 02/02/17 22:21 02/03/17 00:20 02/03/17 06:05 Range/Units White Blood Count 21.20 4.8-10.8 K/uL Red Blood Count 4.70 4.2-5.4 M/uL Hemoglobin 13.4 12.0-16.0 g/dL Hematocrit 39.0 37-47 % Mean Corpuscular Volume 83.0 80-100 fL Mean Corpuscular Hemoglobin 28.5 25-34 pg Mean Corpuscular Hemoglobin Concent 34.4 32-36 g/dl Platelet Count 235 130-400 K/uL Mean Platelet Volume 11.4 7.4-10.4 fL Neutrophils (%) (Auto) 90.0 % Lymphocytes (%) (Auto) 5.4 % Monocytes (%) (Auto) 3.8 % Eosinophils (%) (Auto) 0.1 % Basophils (%) (Auto) 0.0 % Neutrophils # (Auto) 19.09 1.4-6.5 K/uL Lymphocytes # (Auto) 1.14 1.2-3.4 K/uL Monocytes # (Auto) 0.80 0.11-0.59 K/uL Eosinophils # (Auto) 0.02 0-0.5 K/uL Basophils # (Auto) 0.01 0-0.2 K/uL RDW Standard Deviation 44.1 36.4-46.3 fL RDW Coefficient of Variation 14.4 11.5-14.5 % Immature Granulocyte % (Auto) 0.7 % Immature Granulocyte # (Auto) 0.14 0.00-0.02 K/uL Prothrombin Time 10.2 9.0-12.0 SECONDS Bedside Prothrombin Time INR 0.9 0.9-1.1 Prothromb Time International Ratio 1.0 0.9-1.1 Activated Partial Thromboplast Time 22.6 21.0-31.0 SECONDS Partial Thromboplastin Ratio 0.9 Sodium Level 138 136-145 mmol/L Potassium Level 3.6 3.5-5.1 mmol/L Chloride Level 100 98-107 mmol/L Carbon Dioxide Level 28 21-32 mmol/L Anion Gap 10.0 3-11 mmol/L Blood Urea Nitrogen 43 7-18 mg/dl Creatinine 1.00 0.60-1.20 mg/dl Est Creatinine Clear Calc Drug Dose 35.6 ml/min Estimated GFR () 61.2 Estimated GFR (Non- 52.8 BUN/Creatinine Ratio 43.1 10-20 Random Glucose 175 70-99 mg/dl Calcium Level 9.0 8.5-10.1 mg/dl Total Creatine Kinase 70 26-192 U/L Creatine Kinase MB 2.1 0.5-3.6 ng/ml Creatine Kinase MB Ratio 3.0 0-3.0 Troponin I < 0.015 0-0.045 ng/ml Bedside Glucose 162 103 70-90 mg/dl Urine Color DK YELLOW Urine Appearance CLEAR CLEAR Urine pH 7.0 4.5-7.5 Urine Specific [place] 1.014 1.000-1.030 Urine Protein 1+ NEG Urine Glucose (UA) NEG NEG Urine Ketones NEG NEG Urine Occult Blood TRACE NEG Urine Nitrite NEG NEG Urine Bilirubin NEG NEG Urine Urobilinogen NEG NEG Urine Leukocyte Esterase NEG NEG Urine WBC (Auto) 1-5 0-5 /hpf Urine RBC (Auto) 0-4 0-4 /hpf Urine Hyaline Casts (Auto) 1-5 0-5 /lpf Urine Epithelial Cells (Auto) >30 0-5 /lpf Urine Bacteria (Auto) NEG NEG Urine Renal Epithelial Cells 0-5 /lpf Urine Yeast (Auto) BUDDING NONE PRSENT Test 02/03/17 11:08 02/03/17 12:44 Range/Units Bedside Glucose 109 70-90 mg/dl Procalcitonin < 0.05 0-0.5 ng/mL Microbiology Results 02/03/17 MRSA DNA Surveillance Screen - Final, Complete Specimen Negative for MRSA by DNA Probe 02/03/17 Urine Culture, Received Pending Assessment and Plan This is a 81 year old female with history of bladder cancer s/p resection (have urostomy bag), 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 Hip CT showed nondisplaced intertrochanteric fracture within the proximal left femur. Patient also complains of left sided weakness. Imaging of the brain showed small subacute right basal ganglia lacunar infarct. Currently on IVF NSS+20KCL @ 125mls/hr. Changed all the PO medications to IV given difficulty with swallowing. * Left closed intertrochanteric hip fracture - CT of the hip didn't show any pathologic fracture - Orthopedics Surgery was consulted. Dr. Skelton saw the patient and recommended fixation of the femur. Plan to proceed with the surgery tomorrow. He spoke with the daughter and she agrees with the plan. - Escoto's traction for comfort - Pain management with Dilaudid 0.25 & 0.5mg q2h prn - Neurology recommendation as follows: * No neurological contraindications to proceed with the surgery * Patient has risk of surgical complications, and will be a high risk of stroke perioperatively especially in the setting of a hip fracture ( which also can cause embolic stroke), but there is no reasonable alternatives considering her pain and functioning. - NPO after midnight. * Subacute ischemic stroke - Patient has residual left sided weakness - The etiology could be multiple factorial given patient has hx of Afib and hx of CA,which prone her to be hypercoagulable. - MRI of the brain showed 1. Innumerable bilateral enhancing masses with associated vasogenic edema. The findings are consistent with extensive metastasis. There is equivocal slight decrease in the size of these lesions a finding which may relate to treatment response 2. New focus of restricted water diffusion involving the right external capsule consistent with an acute infarct 3. Additional foci of restricted water diffusion remain similar to the prior January 27 study, and likely represent subacute infarcts. - Head CT: 1. No acute intracranial hemorrhage, small subacute lacunar infarct within the right basal ganglia which is new from the prior study. - HgbA1c and lipid profile tomorrow am. - Echo and carotid US - Pending - Neurology was consulted. - Stroke risk factor modifications and recommendations by Neurology: 1. Blood pressure recommendations for the first month post hospital discharge 150/90-130/80, and after that blood pressure recommendations 130/80-110/70 2. Total cholesterol goal 100- 200 and LDL goal less than 70 3. Hemoglobin A1c goal less than 7 4. Encourage cardiovascular exercise at least 3 times a week for 30 minutes. - Patient needs to be on anticoagulant for 5-7 days for stroke prevention; however this would increase the risk on bleeding. For now will start her on ASA 81mg per Neurology recommendation. - Consulted Palliative care. - Consulted PT/OT and speech therapy - Continue to monitor her in Tele * RUL Lung mass with mets to Brain/Liver/Spine - Bronchoscopy on last hospitalization (01/29) was non diagnostic. - Pulmonology was consulted. Dr. Macisa recommended Sandie's/ENB evaluation. Possible YANIRA bronchoscopy with ENB after tomorrow or Sunday's hip fixation. - Currently working with Dr. Castro (Radiation Oncology), received 1 radiation and next radiation was scheduled in 2 days. - C/w IV dexamethasone 4mg q6h - Heme/Onc was consulted. After discussing the case with Dr. Hyman, he recommended to wait for definite tissue diagnosis to determine further management. Also given patient current condition, it's very less likely she will be a candidate for chemo. - Consulted palliative care. * Hyperglycemia - Most likely 2/2 steroid - On admission glucose was 173. - Continue with Accu-Cheks before meals and at bedtime with NovoLog coverage * Neutrophilia Leukocytosis - Most likely 2/2 to steroid vs infection - Ucx - pending (given previous admission she had UTI and sent home with Macrobid X7days) - Hold Macrobid - Started on IV Cefepime and Vanco - F/u CBC tomorrow am * Hypothyroidism - C/w IV Synthroid 75mcg - TSH on last admission (01/25) was normal, 1.08 * Paroxysmal atrial fibrillation - Patient is currently on sinus rhythm with heart rate in 40s and 50s - Not in any anticoagulant given the risk of bleeding - On ASA 81mg - Continue to monitor on Tele * DVT prophylaxis - SCDs * Code Status - Full code - Given patient current condition needs have discussion with the family about the code status. I will try to contact Jenae, the daughter who is the POA. Patient is not competent enough to make any medical decision. Resident Tracking Resident Involvement: Resident Care Provided Care Provided: Adult Hospital Medicine Reviewed: Pt Seen/Exam by Me History sleeping in bed. arousable but falls back asleep Constitutional: denies: fever General Appearance: no apparent distress Respiratory: no respiratory distress, decreased breath sounds Cardiovascular: regular rate, rhythm Extremities: other (left leg externally rotated) Neurologic/Psychiatric: other (sedated) Skin Characteristics: warm/dry Assessment/Plan I have reviewed the medical record and performed a history and physical examination of this patient today. I have discussed the case with Dr. Reyes. The above note reflects my findings, conclusions, and recommendations.
--- NOTE | 2017-02-03 15:54 | Pharmacy Progress Note ---
Pharmacy Antibiotic Consult Date of Service: Feb 03, 2017. Pharmacy Dosing Scope Pharmacy is consulted to initiate Vancomycin IV dosing therapy, order appropriate labs and adjust drug dose/frequency for Pulmonary process. Subjective The patient is a 81 year old female admitted on Feb 03, 2017 at 00:23. Objective Height (Feet): 5 Height (Inches): 5.00 Weight (Kilograms): 52.100 Lab Results (24hrs): Laboratory Tests Test 02/02/17 22:20 BUN/Creatinine Ratio 43.1 Blood Urea Nitrogen 43 mg/dl Creatinine 1.00 mg/dl White Blood Count 21.20 K/uL Red Blood Count 4.70 M/uL Hemoglobin 13.4 g/dL Hematocrit 39.0 % Mean Corpuscular Volume 83.0 fL Mean Corpuscular Hemoglobin 28.5 pg Mean Corpuscular Hemoglobin Concent 34.4 g/dl Platelet Count 235 K/uL Mean Platelet Volume 11.4 fL Neutrophils (%) (Auto) 90.0 % Lymphocytes (%) (Auto) 5.4 % Monocytes (%) (Auto) 3.8 % Eosinophils (%) (Auto) 0.1 % Basophils (%) (Auto) 0.0 % Neutrophils # (Auto) 19.09 K/uL Lymphocytes # (Auto) 1.14 K/uL Monocytes # (Auto) 0.80 K/uL Eosinophils # (Auto) 0.02 K/uL Basophils # (Auto) 0.01 K/uL Micro Results: Negative MRSA swab Urine culture pending Recent Pertinent Medications Also on Cefepime 2 gm IV q24h Assessment & Plan * Loading dose: Vancomycin 1150 mg (22 mg/kg) IV x 1 dose today at 1330. * Maintenance dose: Vancomycin 800 mg (15 mg/kg) IV q24h ordered to start tomorrow at 1000. * Estimated pharmacokinetics: Ke = 0.034/hr, t1/2 = 19.8 hrs, Vd = 0.7 L/kg * Goal trough level estimate: between 15 - 20 mcg/mL. * Trough Vancomycin level has been ordered for 02/06/17 before dose at 1000 Pharmacy will continue to follow and will adjust dose/frequency as necessary. Thank you
--- NOTE | 2017-02-03 15:58 | Oncology Consultation ---
Oncology/Heme Consultation Date of Consultation: Feb 03, 2017. Attending Physician: Michaela Wills M.D. Reason for Consultation: Suspected metastatic cancer Acute stroke HIp fracture History of Present Illness Ms. Patino is an 81 year old woman who was recently hospitalized for what proved to be newly diagnosed brain lesions and lung masses concerning for metastatic cancer. She has a prior history of bladder cancer and is a current smoker. An attempted biopsy during that stay was non-diagnostic. She presents back to [facility] with a left hemiparesis and a fall resulting in a left hip fracture. An MRI of her brain reveals at least one acute and several other subacute infarcts. She is hard of hearing and had a difficult time following my exam. She feels ok and is not in significant pain. Past Medical/Surgical History Medical Problems: (1) Dehydration Status: Acute (2) Dizziness Status: Acute (3) Headache Status: Acute (4) Hip fracture, left Status: Acute (5) Vomiting Status: Acute (6) Weight loss Status: Acute Social History Smoking Status: Current Every Day Smoker Smokeless Tobacco Use: No Alcohol Use: none Drug Use: none Marital Status: Housing Status: lives with family Occupation Status: retired Allergies Coded Allergies: Iodinated Diagnostic Agents (Verified Allergy, Unknown, HIVES TO ORAL CONTRAST, 02/06/14) Corticosteroids (Verified Adverse Reaction, Unknown, "CAN'T TAKE HIGH DOSES", 02/06/14) Home Medications Scheduled Dexamethasone (Dexamethasone), 4 MG PO Q6H Levothyroxine Sodium (Synthroid), 150 MCG PO DAILY Nitrofurantoin Monohyd Macrocr (Nitrofurantoin Monohydrat), 100 MG PO Q6H Scheduled PRN Naproxen Sodium (Aleve), 1 CAP PO UD PRN for Pain Current Inpatient Medications Current Inpatient Medications Medications (Trade) Dose Ordered Sig/Pradeep Route Start Time Stop Time Status Last Admin Dose Admin Acetaminophen (Tylenol Tab) 650 mg Q4H PRN PO 02/03/17 00:30 03/05/17 00:29 Ondansetron HCl 4 mg 4 mg Q6H PRN IV 02/03/17 00:30 03/05/17 00:29 Acetaminophen (Ofirmev Iv) 100 ml @ 400 mls/hr Q8H PRN IV 02/03/17 00:30 03/05/17 00:29 Hydromorphone HCl (Dilaudid Inj) 0.25 mg Q2H PRN IV 02/03/17 00:30 02/17/17 00:29 Hydromorphone HCl 0.5 mg 0.5 mg Q2H PRN IV 02/03/17 00:30 02/17/17 00:29 02/03/17 02:56 0.5 MG Potassium Chloride/Sodium Chloride 1,000 ml @ 125 mls/hr Q8H IV 02/03/17 02:00 03/05/17 01:59 02/03/17 15:21 125 MLS/HR Pantoprazole Sodium/Syringe (Protonix Inj/ Syringe) 10 ml @ 5 mls/min DAILY@11 IV 02/03/17 11:00 03/05/17 10:59 02/03/17 11:23 5 MLS/MIN Glucose (Glucose 40% Gel) UD PRN PO 02/03/17 00:30 03/05/17 00:29 Glucose (Glucose Chew Tab) 1 tabs UD PRN PO 02/03/17 00:30 03/05/17 00:29 Dextrose (Dextrose 50% 50ML Syringe) 50 ml UD PRN IV 02/03/17 00:30 03/05/17 00:29 Glucagon (Glucagon Inj) 1 mg UD PRN SQ 02/03/17 00:30 03/05/17 00:29 Gadobutrol 5 mmol 5 mmol UD PRN IV 02/03/17 03:45 02/07/17 03:44 Dexamethasone Sodium Phosphate 4 mg/Syringe 1 ml @ 1 mls/min Q6H IV 02/03/17 09:00 03/05/17 08:59 02/03/17 15:16 1 MLS/MIN Levothyroxine Sodium/Syringe (Synthroid Inj/ Syringe) 3.75 ml @ 2 mls/min DAILY@09 IV 02/03/17 09:00 03/05/17 08:59 02/03/17 09:17 2 MLS/MIN Insulin Aspart SLIDING SCALE If C... Q6 SC 02/03/17 12:00 03/05/17 06:59 Future hold Vancomycin HCl/ Sodium Chloride (Vancomycin Inj/ Nss 250ml) 266 ml @ 125 mls/hr DAILY@1000 IV 02/04/17 10:00 02/10/17 09:59 Vancomycin HCl (Consult) 1 ea UD PRN N/A 02/03/17 13:00 03/05/17 12:59 Cefepime HCl 1 ea 1 ea UD PRN N/A 02/03/17 13:00 03/05/17 12:59 Cefepime HCl/ Dextrose (Maxipime IV/D5 100ml) 112.5 ml @ 225 mls/hr DAILY@1200 IV 02/04/17 12:00 02/10/17 11:59 Aspirin (Ecotrin Tab) 81 mg QAM PO 02/04/17 09:00 03/06/17 08:59 Review of Systems Incomplete due to confusion and hearing loss Respiratory: No shortness of breath Cardiovascular: No chest pain Abdomen: No nausea Musculoskeletal: + joint pain (left hip pain) Neurologic: + paralysis (left arm and leg) Physical Exam Date Time Temp Pulse Resp B/P Pulse Ox O2 Delivery O2 Flow Rate FiO2 02/03/17 15:46 37.0 73 22 139/71 92 Room Air 02/03/17 12:00 Room Air 02/03/17 11:30 36.7 66 18 132/73 94 Room Air 02/03/17 08:00 Room Air 02/03/17 07:44 36.7 62 20 121/70 96 Room Air 02/03/17 03:53 36.4 63 18 158/79 98 Room Air 02/03/17 01:55 95 Room Air 02/03/17 01:55 95 Room Air 02/03/17 01:55 36.3 56 20 165/80 02/03/17 01:40 50 16 95 02/03/17 01:31 113/59 02/03/17 01:10 53 13 94 02/03/17 01:00 132/75 02/03/17 00:40 55 14 94 02/03/17 00:30 151/76 02/03/17 00:10 58 16 93 02/03/17 00:00 171/97 02/02/17 23:40 63 14 93 02/02/17 23:35 69 17 95 02/02/17 23:30 173/96 02/02/17 23:05 69 21 95 02/02/17 23:00 162/90 02/02/17 22:36 179/80 02/02/17 22:20 51 26 94 02/02/17 22:16 63 02/02/17 22:12 94 Room Air 02/02/17 21:59 147/104 02/02/17 21:50 36.4 85 26 147/104 94 Room Air General Appearance: no apparent distress, + cachetic (frail, ill-appearing woman) Eyes: + pertinent finding (Patient had a hard time complying with EOM exam, but appears grossly intact) Respiratory/Chest: no respiratory distress, + wheezing (scattered bilateral expiratory wheezes) Cardiovascular: regular rate, rhythm Abdomen/GI: non tender, soft Extremities/Musculoskelatal: no pedal edema Neurologic/Psych: alert, + motor weakness (left arm and leg paralysis), + disoriented (Seemed aware of her plan, but was confused during our conversation. ) Laboratory Results Last 24 Hours Test 02/02/17 22:20 02/02/17 22:21 02/03/17 00:20 02/03/17 06:05 White Blood Count 21.20 K/uL Red Blood Count 4.70 M/uL Hemoglobin 13.4 g/dL Hematocrit 39.0 % Mean Corpuscular Volume 83.0 fL Mean Corpuscular Hemoglobin 28.5 pg Mean Corpuscular Hemoglobin Concent 34.4 g/dl Platelet Count 235 K/uL Mean Platelet Volume 11.4 fL Neutrophils (%) (Auto) 90.0 % Lymphocytes (%) (Auto) 5.4 % Monocytes (%) (Auto) 3.8 % Eosinophils (%) (Auto) 0.1 % Basophils (%) (Auto) 0.0 % Neutrophils # (Auto) 19.09 K/uL Lymphocytes # (Auto) 1.14 K/uL Monocytes # (Auto) 0.80 K/uL Eosinophils # (Auto) 0.02 K/uL Basophils # (Auto) 0.01 K/uL RDW Standard Deviation 44.1 fL RDW Coefficient of Variation 14.4 % Immature Granulocyte % (Auto) 0.7 % Immature Granulocyte # (Auto) 0.14 K/uL Prothrombin Time 10.2 SECONDS Bedside Prothrombin Time INR 0.9 Prothromb Time International Ratio 1.0 Activated Partial Thromboplast Time 22.6 SECONDS Partial Thromboplastin Ratio 0.9 Sodium Level 138 mmol/L Potassium Level 3.6 mmol/L Chloride Level 100 mmol/L Carbon Dioxide Level 28 mmol/L Anion Gap 10.0 mmol/L Blood Urea Nitrogen 43 mg/dl Creatinine 1.00 mg/dl Est Creatinine Clear Calc Drug Dose 35.6 ml/min Estimated GFR () 61.2 Estimated GFR (Non- 52.8 BUN/Creatinine Ratio 43.1 Random Glucose 175 mg/dl Calcium Level 9.0 mg/dl Total Creatine Kinase 70 U/L Creatine Kinase MB 2.1 ng/ml Creatine Kinase MB Ratio 3.0 Troponin I < 0.015 ng/ml Bedside Glucose 162 mg/dl 103 mg/dl Urine Color DK YELLOW Urine Appearance CLEAR Urine pH 7.0 Urine Specific [place] 1.014 Urine Protein 1+ Urine Glucose (UA) NEG Urine Ketones NEG Urine Occult Blood TRACE Urine Nitrite NEG Urine Bilirubin NEG Urine Urobilinogen NEG Urine Leukocyte Esterase NEG Urine WBC (Auto) 1-5 /hpf Urine RBC (Auto) 0-4 /hpf Urine Hyaline Casts (Auto) 1-5 /lpf Urine Epithelial Cells (Auto) >30 /lpf Urine Bacteria (Auto) NEG Urine Renal Epithelial Cells /lpf Urine Yeast (Auto) BUDDING Test 02/03/17 11:08 02/03/17 12:44 Bedside Glucose 109 mg/dl Procalcitonin < 0.05 ng/mL Assessment & Plan Ms. Patino is an 81 year old woman who was recently found to have multiple brain lesions and a lung mass that is worrisome for a metastatic malignancy. She has a prior history of bladder cancer and was an active smoker at the time we saw her. It isn't clear if this is a recurrence of her prior cancer or a new lung cancer. An attempted biopsy during her last admission was non-diagnostic. She returns today after suffering a stroke and a fall leading to a left hip fracture. She is planned for ORIF. During that procedure, Dr. Macias will perform another diagnostic procedure for her lung mass. Given the decline in her condition, related to the strokes, I worry that she will not really be a candidate for aggressive anti-neoplastic therapy. However, as it sounds that the planned diagnostic procedure is not going to add significantly to the risks of her already planned surgery, I think it is reasonable to do, if for no other reason than prognostication. Based on the results of her pathology, we can discuss what therapeutic options might be possible, though as noted I expect they will be limited.
--- NOTE | 2017-02-03 17:02 | ECHOCARDIOGRAM REPORT ---
*NOTICE TO RECEIVING LIBERTARIAN AGENCY This information is strictly Confidential and protected under [place] law. [place] law prohibits you from making any further disclosure of this information unless further disclosure is expressly permitted by the written consent of the person to whom it pertains or is authorized by law. A general authorization for the release of medical or other information is not sufficient for this purpose. Hospital accepts no responsibility if the information is made available to any other person, INCLUDING THE PATIENT. Interpretation Summary * Name: JASSON CORTEZ Study Date: 02/03/2017 01:53 PM BP: 132/73 mmHg * Patient Location: C.2T\S\S238\S\1 HR: 66 * : 1935 (M/d/yy) Gender: Female Height: 65 in * Age: 81 yrs Ethnicity: CA Weight: 111 lb * Ordering Physician: Dwight Sky * Referring Physician: IMER * Performed By: Jolie Garcia RDCS * * Reason For Study: FUP STROKE * BSA: 1.5 m2 * History: LTD FUP STROKE * -- Conclusions -- * Limited views were obtained. * There is mild concentric left ventricular hypertrophy. * Left ventricular systolic function is normal. * Injection of contrast documented no interatrial shunt. * Compared to a study performed 9 days ago, the LV measures thicker. Procedure Details * A saline contrast injection was performed to assess for cardiac shunting. * The injection was performed through an intravenous line in the right arm. * The attending nurse who injected the saline contrast was JUAN J SIDHU. * A total of 10 cc of agitated saline was given. * Limited views were obtained. Left Ventricle * There is mild concentric left ventricular hypertrophy. * Left ventricular systolic function is normal. Atria * Injection of contrast documented no interatrial shunt. MMode 2D Measurements and Calculations IVSd 1.5 cm IVSs 1.9 cm LVIDd 3.4 cm LVIDs 2.2 cm LVPWd 1.6 cm LVPWs 1.9 cm IVS/LVPW 0.93 FS 36.0 % EDV(Teich) 48.6 ml ESV(Teich) 16.2 ml EF(Teich) 66.7 % EDV(cubed) 40.6 ml ESV(cubed) 10.7 ml EF(cubed) 73.7 % % IVS thick 28.6 % % LVPW thick 14.8 % LV mass(C)d 202.9 grams LV mass(C)dI 131.7 grams/m\S\2 LV mass(C)s 172.1 grams LV mass(C)sI 111.7 grams/m\S\2 SV(Teich) 32.4 ml SI(Teich) 21.1 ml/m\S\2 SV(cubed) 29.9 ml SI(cubed) 19.4 ml/m\S\2
[2017-02-04] VITALS (14 sets, daily range): BP systolic 124–172; BP diastolic 50–82; PULSE 52–102; TEMP 36.4–36.8; O2SAT 93–98
[2017-02-04] MEDS: HydrALAZINE HCL 20 MG/ML VIAL IV. PRN ×2 (00:45→16:22)
[2017-02-04] MEDS: HYDROmorphone INJ 0.5 MG/0.5 ML SYR IV PRN ×2 (01:23→05:17)
[2017-02-04] MEDS: NSS + 20MEQ KCL 1000ML 1,000 ML IV SCH ×3 (02:08→23:12)
[2017-02-04] MEDS ORDERED: NURSING VERBAL MED ORDER ONE ×2 (03:15)
[2017-02-04] MEDS: DEXAMETHASONE INJ 4 MG in SYRINGE 0 ML IV SCH ×4 (03:35→21:02)
[2017-02-04] MEDS: INSULIN ASPART 100 UNITS/ML 3 ML PEN SC SCH ×3 (05:57→18:00)
[2017-02-04] MEDS ORDERED: ROCURONIUM BROMIDE 10 MG/ML 5 ML VIAL ONE (07:05)
[2017-02-04] MEDS ORDERED: DEXAMETHASONE SOD INJ 4 MG/ML VIAL ONE (07:05)
[2017-02-04] MEDS ORDERED: FENTANYL CITRATE INJ 50 MCG/1 ML 2 ML VIAL ONE (07:05)
[2017-02-04] MEDS ORDERED: NEOSTIGMINE METHYLSULFATE 5 MG/5 ML SYR ONE (07:05)
[2017-02-04] MEDS ORDERED: PROPOFOL IV EMULSION 10 MG/ML 20 ML VIAL IV ONE (07:05)
[2017-02-04] MEDS ORDERED: LIDOCAINE HCL 2% 2 ML VIAL (20MG/ML) ONE (07:05)
[2017-02-04] MEDS ORDERED: GLYCOPYRROLATE INJ 0.2 MG/ML VIAL ONE (07:05)
[2017-02-04] MEDS ORDERED: EpHEDrine SULFATE INJ 50 MG/ML AMP ONE (07:05)
[2017-02-04] MEDS ORDERED: PHENYLEPHRINE HCL INJ 10 MG/ML VIAL ONE (07:05)
[2017-02-04] MEDS ORDERED: ONDANSETRON INJ 2 MG/ML 2 ML VIAL ONE (07:05)
[2017-02-04 07:10] LABS: COMPLETE YES; HEMATOCRIT 38.8 % (37-47); LYMPH % 6.5 %; LYMPH ABS # 1.11 K/uL (1.2-3.4); MEAN CELL VOLUME 84.7 fL (80-100); MEAN CORPUSCULAR HEMOGLOBIN 28.6 pg (25-34); MEAN CORPUSCULAR HGB CONC 33.8 g/dl (32-36); MEAN PLATELET VOLUME 11.9 fL (7.4-10.4); MONO % 2.6 %; NEUT % 89.9 %; PLATELET COUNT 198 K/uL (130-400); RED BLOOD COUNT 4.58 M/uL (4.2-5.4); WHITE BLOOD COUNT 17.15 K/uL (4.8-10.8)
[2017-02-04] MEDS ORDERED: BUPIVACAINE/EPINEPHRINE 0.5% MPF 1:200,000 30 ML VIAL ONE (07:12)
--- NOTE | 2017-02-04 07:37 | History & Physical Bridge Note ---
H&P Re-Evaluation Bridge Note: I have examined the patient, reviewed the History & Physical and in the interval since the performance of the History & Physical I have noted the following changes of clinical significance: No changes noted
[2017-02-04] MEDS ORDERED: ATROPINE SULFATE 0.1 MG/ML 5ML SYR IV PRN (07:45)
[2017-02-04] MEDS ORDERED: EpHEDrine SULFATE INJ 50 MG/ML AMP IV PRN (07:45)
[2017-02-04] MEDS ORDERED: ONDANSETRON INJ 2 MG/ML 2 ML VIAL IV PRN (07:45)
[2017-02-04] MEDS ORDERED: HYDROmorphone INJ 2 MG/ML SYR/VIAL IV PRN (07:45)
[2017-02-04] MEDS ORDERED: PHENYLEPHRINE 100MCG/ML 5ML SYR IV PRN (07:45)
[2017-02-04 07:54] LABS: BUN/CREATININE RATIO 49.3 (10-20); CALCIUM 8.2 mg/dl (8.5-10.1); CHOLESTEROL/HDL RATIO 2.8; CREATININE 0.74 mg/dl (0.60-1.20); MAGNESIUM 2.2 mg/dl (1.8-2.4); POTASSIUM 4.9 mmol/L (3.5-5.1)
[2017-02-04] MEDS: ASPIRIN 81 MG ECTAB PO SCH (09:00)
[2017-02-04] MEDS: LEVOTHYROXINE SODIUM INJ 75 MCG in SYRINGE 0 ML IV SCH (09:00)
--- NOTE | 2017-02-04 09:15 | DIAGNOSTIC IMAGING REPORT ---
Intraoperative fluoroscopic images of the left hip CLINICAL HISTORY: Left trochanteric nail. COMPARISON STUDY: Pelvis and left hip radiographs and CT of the left hip February 02, 2017. FLUOROSCOPY TIME: 1 minute and 18 seconds. FINDINGS: These fluoroscopic images demonstrate placement of a left trochanteric nail with becki. Alignment of the intertrochanteric fracture is anatomic. There is a distal screw. There are no unexpected radiopaque foreign bodies. IMPRESSION: Expected findings following internal fixation of the intertrochanteric fracture of the left femur with trochanteric nail. Electronically signed by: Patricio Malave M.D. 02/04/2017 9:12 AM Dictated Date/Time: 02/04/2017 9:10 AM
[2017-02-04] MEDS ORDERED: CEFAZOLIN IV 1,000 MG in DEXTROSE 5% 50ML 50 ML IV SCH (10:30)
--- NOTE | 2017-02-04 10:55 | Bronchoscopy Procedure Note ---
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 The ET tube was notably 4 cm above the level of the estelita. Trachea: Visualized portion of the trachea was anatomically within normal limits , diffuse mucous secretions cleared through the bronchoscope Estelita: Anatomically within normal limits Right bronchial tree: Right mainstem bronchus: Anatomically within normal limits Right upper lobe: Anatomically within normal limits Bronchus intermedius: Anatomically within normal limits Right middle lobe: External narrowing Right lower lobe: External narrowing especially of the medial right lower lobe RB7 Findings: Diffuse secretions cleared for the bronchoscope especially of the right upper lobe Left bronchial tree: Left mainstem bronchus: Anatomically within normal limits Left upper lobe: Anatomically within normal limits Lingula: Anatomically within normal limits Left lower lobe: Anatomically within normal limits Findings: No significant findings noted EBUS/FELICIA: Tbbx David Stations: 7: # of passes 5 passes with signs of non-small cell versus transitional cell CA of the bladder stainings pending R4: # of passes 1 passes tumor cells noted R12 vs. primary mass: # of passes 3 with no definitive findings Complications: None Follow-up: Patient is to return to her room 2 S. room 238.1
--- NOTE | 2017-02-04 11:18 | Anesthesiology Progress Note ---
Anesthesia Post Op Note Date & Time Feb 04, 2017 at 11:17 Vital Signs Pain Intensity: 9.0 Vital Signs Past 12 Hours Date Time Temp Pulse Resp B/P Pulse Ox O2 Delivery O2 Flow Rate FiO2 02/04/17 08:03 36.6 73 20 172/82 94 Nasal Cannula 2.0 02/04/17 04:00 Room Air 02/04/17 03:43 36.5 77 20 146/50 96 Nasal Cannula 2.0 02/04/17 01:27 62 22 137/76 93 Nasal Cannula 2.0 02/03/17 23:59 Room Air 02/03/17 23:49 36.8 69 22 195/91 98 Room Air Notes Mental Status: alert / awake / arousable, participated in evaluation Pt Amnestic to Procedure: Yes Nausea / Vomiting: adequately controlled Pain: adequately controlled Airway Patency, RR, SpO2: stable & adequate BP & HR: stable & adequate Hydration State: stable & adequate Anesthetic Complications: no major complications apparent
[2017-02-04] MEDS ORDERED: HYDROmorphone INJ 2 MG/ML SYR/VIAL ONE (11:21)
[2017-02-04] MEDS: PANTOprazole INJ 40 MG in SYRINGE 0 ML IV SCH (13:11)
[2017-02-04] MEDS: CEFEPIME IV 2000 MG in DEXTROSE 5% 100ML IV SCH (13:11)
[2017-02-04] MEDS: VANCOMYCIN INJ 800 MG in SODIUM CHLORIDE 0.9% 250ML 250 ML IV SCH (13:11)
--- NOTE | 2017-02-04 13:46 | Family Medicine Progress Note ---
Progress Note Date of Service Feb 04, 2017. Subjective Pt evaluation today including: conversation w/ patient, physical exam, lab review, review of studies Voiding: gramajo catheter in place Patient was seen at the ICU. She was on 4L NC. Patient was drowsy because of the sedative medication. Per nurse she was very restless and aggressive post surgery. She received 0.5mg Dilaudid and 150ml of Additional Comments: Couldn't obtain ROS given patient was sedated Medications Current Inpatient Medications Medications (Trade) Dose Ordered Sig/Pradeep Route Start Time Stop Time Status Last Admin Dose Admin Acetaminophen (Tylenol Tab) 650 mg Q4H PRN PO 02/03/17 00:30 03/05/17 00:29 Ondansetron HCl 4 mg 4 mg Q6H PRN IV 02/03/17 00:30 03/05/17 00:29 Acetaminophen (Ofirmev Iv) 100 ml @ 400 mls/hr Q8H PRN IV 02/03/17 00:30 03/05/17 00:29 02/04/17 03:50 400 MLS/HR Hydromorphone HCl (Dilaudid Inj) 0.25 mg Q2H PRN IV 02/03/17 00:30 02/17/17 00:29 Hydromorphone HCl 0.5 mg 0.5 mg Q2H PRN IV 02/03/17 00:30 02/17/17 00:29 02/04/17 05:17 0.5 MG Potassium Chloride/Sodium Chloride 1,000 ml @ 125 mls/hr Q8H IV 02/03/17 02:00 03/05/17 01:59 02/03/17 23:46 125 MLS/HR Pantoprazole Sodium/Syringe (Protonix Inj/ Syringe) 10 ml @ 5 mls/min DAILY@11 IV 02/03/17 11:00 03/05/17 10:59 02/03/17 11:23 5 MLS/MIN Glucose (Glucose 40% Gel) UD PRN PO 02/03/17 00:30 03/05/17 00:29 Glucose (Glucose Chew Tab) 1 tabs UD PRN PO 02/03/17 00:30 03/05/17 00:29 Dextrose (Dextrose 50% 50ML Syringe) 50 ml UD PRN IV 02/03/17 00:30 03/05/17 00:29 Glucagon (Glucagon Inj) 1 mg UD PRN SQ 02/03/17 00:30 03/05/17 00:29 Gadobutrol 5 mmol 5 mmol UD PRN IV 02/03/17 03:45 02/07/17 03:44 Dexamethasone Sodium Phosphate 4 mg/Syringe 1 ml @ 1 mls/min Q6H IV 02/03/17 09:00 03/05/17 08:59 02/04/17 03:35 1 MLS/MIN Levothyroxine Sodium/Syringe (Synthroid Inj/ Syringe) 3.75 ml @ 2 mls/min DAILY@09 IV 02/03/17 09:00 03/05/17 08:59 02/03/17 09:17 2 MLS/MIN Insulin Aspart SLIDING SCALE If C... Q6 SC 02/03/17 12:00 03/05/17 06:59 Future hold Vancomycin HCl/ Sodium Chloride (Vancomycin Inj/ Nss 250ml) 266 ml @ 125 mls/hr DAILY@1000 IV 02/04/17 10:00 02/10/17 09:59 Vancomycin HCl (Consult) 1 ea UD PRN N/A 02/03/17 13:00 03/05/17 12:59 Cefepime HCl 1 ea 1 ea UD PRN N/A 02/03/17 13:00 03/05/17 12:59 Cefepime HCl/ Dextrose (Maxipime IV/D5 100ml) 112.5 ml @ 225 mls/hr DAILY@1200 IV 02/04/17 12:00 02/10/17 11:59 Aspirin (Ecotrin Tab) 81 mg QAM PO 02/04/17 09:00 03/06/17 08:59 Hydralazine HCl (HydrALAZINE INJ) 10 mg Q4H PRN IV. 02/04/17 00:45 03/06/17 00:44 02/04/17 00:45 10 MG Objective Vital Signs Date Time Temp Pulse Resp B/P Pulse Ox O2 Delivery O2 Flow Rate FiO2 02/04/17 12:45 65 18 162/78 98 Nasal Cannula 4.0 02/04/17 12:30 61 20 151/68 98 Nasal Cannula 4.0 02/04/17 12:20 36.4 61 20 124/79 95 Nasal Cannula 4.0 02/04/17 12:20 Nasal Cannula 4.0 02/04/17 12:05 60 16 165/74 99 Nasal Cannula 4 02/04/17 11:50 36.1 56 16 158/98 98 Nasal Cannula 4 02/04/17 11:40 57 18 149/66 98 Nasal Cannula 4 02/04/17 11:30 56 15 153/66 97 Nasal Cannula 4 02/04/17 11:20 69 17 148/61 98 Nasal Cannula 4 02/04/17 11:10 68 18 160/75 98 Nasal Cannula 4 02/04/17 11:00 59 16 136/93 96 Nasal Cannula 4 02/04/17 10:50 36 63 20 166/60 98 Nasal Cannula 4 02/04/17 08:03 36.6 73 20 172/82 94 Nasal Cannula 2.0 02/04/17 04:00 Room Air 02/04/17 03:43 36.5 77 20 146/50 96 Nasal Cannula 2.0 02/04/17 01:27 62 22 137/76 93 Nasal Cannula 2.0 02/03/17 23:59 Room Air 02/03/17 23:49 36.8 69 22 195/91 98 Room Air 02/03/17 20:00 Room Air 02/03/17 19:33 36.5 44 20 170/80 94 Room Air 02/03/17 16:00 Room Air 02/03/17 15:46 37.0 73 22 139/71 92 Room Air Physical Exam General Appearance: no apparent distress Neck: supple, trachea midline Respiratory/Chest: no respiratory distress, + decreased breath sounds Cardiovascular: regular rate, rhythm, no edema Abdomen: normal bowel sounds, non tender, soft, + pertinent finding (urostomy bag is intact) Extremities: no pedal edema Skin: normal color, warm/dry Laboratory Results Results Past 24 Hours Test 02/03/17 16:06 02/03/17 20:01 02/03/17 23:53 02/04/17 05:55 Range/Units Bedside Glucose 108 100 105 107 70-90 mg/dl Test 02/04/17 06:40 02/04/17 12:28 Range/Units White Blood Count 17.15 4.8-10.8 K/uL Red Blood Count 4.58 4.2-5.4 M/uL Hemoglobin 13.1 12.0-16.0 g/dL Hematocrit 38.8 37-47 % Mean Corpuscular Volume 84.7 80-100 fL Mean Corpuscular Hemoglobin 28.6 25-34 pg Mean Corpuscular Hemoglobin Concent 33.8 32-36 g/dl Platelet Count 198 130-400 K/uL Mean Platelet Volume 11.9 7.4-10.4 fL Neutrophils (%) (Auto) 89.9 % Lymphocytes (%) (Auto) 6.5 % Monocytes (%) (Auto) 2.6 % Eosinophils (%) (Auto) 0.0 % Basophils (%) (Auto) 0.0 % Neutrophils # (Auto) 15.41 1.4-6.5 K/uL Lymphocytes # (Auto) 1.11 1.2-3.4 K/uL Monocytes # (Auto) 0.45 0.11-0.59 K/uL Eosinophils # (Auto) 0.00 0-0.5 K/uL Basophils # (Auto) 0.00 0-0.2 K/uL RDW Standard Deviation 46.3 36.4-46.3 fL RDW Coefficient of Variation 15.0 11.5-14.5 % Immature Granulocyte % (Auto) 1.0 % Immature Granulocyte # (Auto) 0.18 0.00-0.02 K/uL Sodium Level 138 136-145 mmol/L Potassium Level 4.9 3.5-5.1 mmol/L Chloride Level 105 98-107 mmol/L Carbon Dioxide Level 24 21-32 mmol/L Anion Gap 9.0 3-11 mmol/L Blood Urea Nitrogen 37 7-18 mg/dl Creatinine 0.74 0.60-1.20 mg/dl Est Creatinine Clear Calc Drug Dose 49.0 ml/min Estimated GFR () 88.1 Estimated GFR (Non- 76.0 BUN/Creatinine Ratio 49.3 10-20 Random Glucose 104 70-99 mg/dl Calcium Level 8.2 8.5-10.1 mg/dl Magnesium Level 2.2 1.8-2.4 mg/dl Triglycerides Level 165 0-150 mg/dl Cholesterol Level 222 0-200 mg/dl HDL Cholesterol 79 mg/dl LDL Cholesterol, Calculated 110 mg/dl VLDL Cholesterol, Calculated 33 mg/dl Cholesterol/HDL Ratio 2.8 Bedside Glucose 128 70-90 mg/dl Assessment and Plan This is a 81 year old female with history of bladder cancer s/p resection (have urostomy bag), 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 Hip CT showed nondisplaced intertrochanteric fracture within the proximal left femur. Patient also complains of left sided weakness. Imaging of the brain showed small subacute right basal ganglia lacunar infarct. Currently on IVF NSS+20KCL @ 125mls/hr (Day #2). Patient had hip surgery today and EBUS by Dr. Macias. No complication during surgery. Patient is currently in ICU for post surgery recovery. * Left closed intertrochanteric hip fracture - CT of the hip didn't show any pathologic fracture - Hip surgery was performed by Dr. Skelton today - Pain management with Dilaudid 0.25 & 0.5mg q2h prn - Neurology recommendation as follows: * No neurological contraindications to proceed with the surgery * Patient has risk of surgical complications, and will be a high risk of stroke perioperatively especially in the setting of a hip fracture ( which also can cause embolic stroke), but there is no reasonable alternatives considering her pain and functioning. - Continue to monitor in Tele * Subacute ischemic stroke - Patient has residual left sided weakness - The etiology could be multiple factorial given patient has hx of Afib and hx of CA,which prone her to be hypercoagulable. - MRI of the brain showed 1. Innumerable bilateral enhancing masses with associated vasogenic edema. The findings are consistent with extensive metastasis. There is equivocal slight decrease in the size of these lesions a finding which may relate to treatment response 2. New focus of restricted water diffusion involving the right external capsule consistent with an acute infarct 3. Additional foci of restricted water diffusion remain similar to the prior January 27 study, and likely represent subacute infarcts. - Head CT: 1. No acute intracranial hemorrhage, small subacute lacunar infarct within the right basal ganglia which is new from the prior study. - HgbA1c - pending - lipid profile: Triglyceride and cholesterol are elevated (165,222), LDL 110 and HDL 79 - Limited Echo showed mild concentric left ventricular hypertrophy with normal systolic function. Compared with previous study LV measures thicker. - Carotid US is unremarkable - Neurology was consulted. Will continue to appreciate her recommendations. - Stroke risk factor modifications and recommendations by Neurology: 1. Blood pressure recommendations for the first month post hospital discharge 150/90-130/80, and after that blood pressure recommendations 130/80-110/70 2. Total cholesterol goal 100- 200 and LDL goal less than 70 3. Hemoglobin A1c goal less than 7 4. Encourage cardiovascular exercise at least 3 times a week for 30 minutes. - Patient needs to be on anticoagulant for 5-7 days for stroke prevention; however this would increase the risk on bleeding. For now will start her on ASA 81mg per Neurology recommendation. - Consulted Palliative care. 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 - EBUS was performed today by Dr. Macias. It is either non-small cell CA vs transitional cell CA of the bladder. Very less likely it is adenocarcinoma. Staining is pending. - Heme/Onc was consulted. After discussing the case with Dr. Hyman, he recommended to wait for definite tissue diagnosis to determine further management. If it is turn out worker to be SCC, which is most likely, patient won't be good candidate for chemo. Will await for further recommendation by Dr. Rosa Isela Skelton. - Currently working with Dr. Castro (Radiation Oncology), received 1 radiation and next radiation was scheduled in 2 days. - C/w IV dexamethasone 4mg q6h - Consulted palliative care. * Hyperglycemia - Most likely 2/2 steroid - On admission glucose was 173. - Continue with Accu-Cheks before meals and at bedtime with NovoLog coverage * Neutrophilia Leukocytosis - Most likely 2/2 to steroid vs infection - Ucx - grew yeast (given previous admission she had UTI and sent home with Macrobid X7days) - Hold Macrobid - Started on IV Cefepime and Vanco per pulmonary - F/u CBC tomorrow am * Hypothyroidism - C/w IV Synthroid 75mcg - TSH on last admission (01/25) was normal, 1.08 * Paroxysmal atrial fibrillation - Patient is currently on sinus rhythm with heart rate in 40s and 50s - Not in any anticoagulant given the risk of bleeding - On ASA 81mg - Continue to monitor on Tele * DVT prophylaxis - SCDs * Code Status - Full code - Spoke with the son and his . They are still undecided whether they want to do comfort care or hospice. Recommended to discuss among family. Resident Tracking Resident Involvement: Resident Care Provided Care Provided: Adult Hospital Medicine Reviewed: Pt Seen/Exam by Me History sedated post op. unable to get history Constitutional: denies: fever General Appearance: other (restless) Respiratory: no respiratory distress, decreased breath sounds Cardiovascular: regular rate, rhythm Extremities: other (left hip dressing present. cap refill intact) Assessment/Plan I have reviewed the medical record and performed a history and physical examination of this patient today. I have discussed the case with Dr. Reyes. The above note reflects my findings, conclusions, and recommendations.
--- NOTE | 2017-02-04 17:36 | OPERATIVE REPORT ---
DATE OF OPERATION: 02/04/2017 SURGEON: Colby Skelton MD PREOPERATIVE DIAGNOSIS: Left intertrochanteric hip fracture. POSTOPERATIVE DIAGNOSIS: Same. PROCEDURE PERFORMED: Left long cephalomedullary nailing of left intertrochanteric hip fracture. COMPLICATIONS: None. ESTIMATED BLOOD LOSS: 20 mL. FLUID REPLACEMENT: 1300 mL crystalloid fluid replacement. ANESTHESIA: General. SPECIMENS: None. OPERATIVE INDICATIONS: The patient is an 81-year-old female who has been recently diagnosed with widely metastatic cancer of unclear etiology. She was recently discharged from the hospital. She sustained a fall 2 evenings ago. She apparently fell in the bathroom. She was admitted to the hospital. She was medically evaluated and optimized. The patient is indicated for surgical fixation of her left hip fracture. She does have widely metastatic cancer and the mantel craftsman wanted to biopsy her lung to try and find out the possible etiology. They have to do that after our procedure. There were no signs of a pathological fracture in the femur. A CT scan showed no signs of bony disease either. Therefore, no biopsy was done of the femur. OPERATIVE IMPLANTS: Operative implants consist of, 1. Synthes left 11 mm x 340 mm long trochanteric nail. 2. A 95-mm helical blade. 3. A 5 mm x 45 mm distal interlocking screw. OPERATIVE PROCEDURE: The patient was taken to the operating room, identified and placed on the operating table in supine position. All contact areas were appropriately padded. IV antibiotics were provided by the anesthesia team. General anesthetic was implemented by anesthesia team. The patient was then placed on the fracture table. The left leg was placed in boot traction and the right leg was placed in a well leg fine. I then applied some longitudinal traction and internally rotated the foot, so the kneecap pointed to the ceiling. X-ray was brought in. I made some minor adjustments under x-ray to make sure that the fracture was anatomically aligned. The left hip and leg were then prepped and draped in the usual sterile fashion. Approximately 4-cm incision was made just proximal to the tip of the greater trochanter. Sharp dissection was carried out through the subcutaneous tissues down to the level of the gluteal fascia. The gluteal fascia was incised longitudinally in line with skin incision. I then placed the guidewire tip just over the lateral tip of the trochanter in line with the IM canal on both the AP and lateral planes. I advanced this down the canal. The position of this was verified fluoroscopically. I then overreamed this with the 17-mm reamer. This guidewire was removed and a ball-tipped guidewire was placed. The femoral canal length was measured and a 340-mm nail was selected. I then overreamed the guidewire with a 12-mm reamer. A 340 mm x 11 mm left long trochanteric nail was then placed. It was tapped into position. The lateral aiming arm was attached. A stab incision was made and the lateral aiming arm was advanced in the lateral aspect of the femur. A guidewire was placed in the central aspect of the femoral neck on both the AP and lateral planes. It was just slightly on the inferior aspect and this was felt to be acceptable. The length was measured and a 95-mm helical blade was selected. The cortical drill was used to breach the lateral cortex. I then overreamed with the triple reamer. A 95-mm helical blade was then placed. I did tighten the set screw proximally and then compressed the fracture slightly. This was then removed and some final x-rays were obtained. Attention was then drawn toward distal interlocking. A perfect ohogamiut technique was used distally to perform a distal interlocking technique. Perfect circles were obtained. A stab incision was made. I then drilled under fluoroscopic guidance, measured, and placed a 5-mm distal interlocking screw. Final x-rays were obtained. Attention was then drawn toward closing. All wounds were irrigated with copious amounts of normal saline. I did inject locally with 30 mL of 0.5% Marcaine with epinephrine. The gluteal fascia was then closed with #1 Vicryl suture in a running fashion. The subcutaneous tissues of all wounds were closed with 2-0 Dexon suture in a buried interrupted fashion. Skin was then closed with skin nelson. Leg was then cleaned and dried and a sterile dressing with Xeroform, 4 x 4s, ABD pad and foam tape was applied. The patient was then taken out of traction. She was left on the fracture table and centralized for the other part of procedure performed by Dr. Macias. That will be dictated by him. I left the patient in his hands. The patient tolerated this procedure well and there were no complications. I attest to the content of the Intraoperative Record and any orders documented therein. Any exceptio ns are noted below.
[2017-02-05] VITALS (9 sets, daily range): BP systolic 115–162; BP diastolic 57–90; PULSE 45–87; TEMP 36.5–37; O2SAT 94–98
[2017-02-05] MEDS: DEXAMETHASONE INJ 4 MG in SYRINGE 0 ML IV SCH ×4 (03:42→21:38)
[2017-02-05] MEDS: INSULIN ASPART 100 UNITS/ML 3 ML PEN SC SCH ×4 (06:00→18:00)
[2017-02-05 06:30] LABS: BASO % 0.1 %; BASO ABS # 0.01 K/uL (0-0.2); COMPLETE YES; HEMATOCRIT 34.3 % (37-47); LYMPH % 6.5 %; LYMPH ABS # 1.11 K/uL (1.2-3.4); MEAN CELL VOLUME 83.5 fL (80-100); MEAN CORPUSCULAR HEMOGLOBIN 28.5 pg (25-34); MEAN CORPUSCULAR HGB CONC 34.1 g/dl (32-36); MEAN PLATELET VOLUME 11.5 fL (7.4-10.4); MONO % 2.7 %; NEUT % 89.7 %; PLATELET COUNT 181 K/uL (130-400); RED BLOOD COUNT 4.11 M/uL (4.2-5.4); WHITE BLOOD COUNT 17.16 K/uL (4.8-10.8)
[2017-02-05 06:36] LABS: ESTIMATED AVERAGE GLUCOSE 117 mg/dl; HA1C FLAG Normal (Normal)
[2017-02-05 07:02] LABS: CALCIUM 8.1 mg/dl (8.5-10.1); CREATININE 0.7 mg/dl (0.60-1.20); POTASSIUM 4.6 mmol/L (3.5-5.1)
--- NOTE | 2017-02-05 08:22 | PROGRESS NOTE ---
DATE: 02/05/2017 SUBJECTIVE: An 81-year-old white female postop day 1 from IM nailing of a left intertrochanteric fracture, status post a fall. She seems to be doing pretty well. Resting comfortably. Very hard of hearing and difficult to communicate with. OBJECTIVE: VITAL SIGNS: Temperature 36.5. Vital signs stable. EXTREMITIES: Examination of left lower extremity reveals the dressing to be clean, dry and intact. Leg is well aligned. Really no significant motor function in left lower extremity, which is due to her stroke. LABORATORY DATA: Hemoglobin 11.3. Hematocrit 34.3. Electrolytes are stable. ASSESSMENT: An 81-year-old white female postop day 1 from intramedullary nailing of the left intertrochanteric fracture. She seems to be doing reasonably well. Her fracture is fixed. She can be mobilized as tolerated. She does have left hemiparesis from her stroke. This procedure was done for comfort measures. She can be mobilized as tolerated. PLAN: We will begin mobilizing her today. Routine wound care. She can weightbear as tolerated in the left lower extremity. As far as DVT prophylaxis, I would recommend TEDs, SCDs, and aspirin. If she needs something stronger that is acceptable, but I will let the medicine physicians determine that based on the risk, benefit ratio. I will need to see her back 2 weeks out from surgery. Any questions can be directed to me at [phone].
[2017-02-05] MEDS: ASPIRIN 81 MG ECTAB PO SCH (08:30)
[2017-02-05] MEDS: NSS + 20MEQ KCL 1000ML 1,000 ML IV SCH ×2 (08:30→18:28)
[2017-02-05] MEDS: VANCOMYCIN INJ 800 MG in SODIUM CHLORIDE 0.9% 250ML 250 ML IV SCH ×2 (09:10→23:53)
--- NOTE | 2017-02-05 09:14 | Clinical Documentation Query ---
CLINICAL DOCUMENTATION QUERY Bronchoscopy procedural note states the procedures done as: Flexible-Bronchoscopy, EBUS, and Tbbx under General Anesthesia. The note goes on to state in regards to the biopsies: EBUS/FELICIA: Tbbx David Stations: 7: # of passes 5 passes with signs of non-small cell versus transitional cell CA of the bladder stainings pending R4: # of passes 1 passes tumor cells noted R12 vs. primary mass: # of passes 3 with no definitive findings Keep in mind a professional code cannot assume location of biopsy based on visual finding by bronchoscope. Also type of instrument used to take biopsy (i.e. needle) should be included in procedural note. In your clinical opinion is this patient being managed for: ( X) Transbronchial needle biopsies of right lower lung via bronchoscope and ultrasonic guidance ( ) Other explanation of clinical findings (Please Explain) ( ) Unable to determine (Please Define) ( ) Need to Discuss ( ) Not Agree Please clarify and document your clinical opinion in the progress notes and discharge summary. Terms such as "probable", "suspected", "likely", "questionable", "possible", or "still to be ruled out" are acceptable. IF IN AGREEMENT, YOU MUST DOCUMENT ABOVE DIAGNOSTIC STATEMENT IN DAILY PROGRESS NOTES AND DISCHARGE SUMMARY. This document is not part of the patient's record. Thank You, Jose Alberto Angel RN [phone]
[2017-02-05] MEDS: LEVOTHYROXINE SODIUM INJ 75 MCG in SYRINGE 0 ML IV SCH (09:26)
[2017-02-05] MEDS: PANTOprazole INJ 40 MG in SYRINGE 0 ML IV SCH (11:55)
[2017-02-05] MEDS: CEFEPIME IV 2000 MG in DEXTROSE 5% 100ML IV SCH (11:58)
--- NOTE | 2017-02-05 15:59 | Palliative Care Consultation ---
Consultation Date of Consultation: Feb 05, 2017. Requesting Physician: Dr. Persaud Attending Physician: Dr. Kumar Reason for Consultation: Goals of care History of Present Illness This 81 year old female patient presented to the ED two days ago with c/o fall and left hip pain. 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 CT of the left hip showed intertrochanteric fracture of left femur. She underwent surgical repair and did well post-op. Patient was also c/o left leg and arm weakness for the last several days-- CT head showed subacute infarct of right basal ganglia. She is not on anticoagulation, however, for bleeding risk. MRI of brain was performed and showed "1. Innumerable bilateral enhancing masses with associated vasogenic edema. The findings are consistent with extensive metastasis. There is equivocal slight decrease in the size of these lesions a finding which may relate to treatment response 2. New focus of restricted water diffusion involving the right external capsule consistent with an acute infarct 3. Additional foci of restricted water diffusion remain similar to the prior January 27 study, and likely represent subacute infarcts." Also has yeast growing in urine culture. Being treated with dexamethasone for the vasogenic edema of the brain. She underwent EBUS in OR by Dr. Macias- biopsy pending: NSCLC vs. transitional cell cancer of bladder (has history of bladder CA). Overall prognosis is rather poor. Palliative consulted for goals of care. I met with the patient and her daughter/POA, Sharona Hutchison, in room 238-1. Patient is very hard of hearing but actually was able to participate in conversation appropriately. Patient and daughter both agree that the goal is strictly for comfort. Patient is still wanting to go through with treatment for the cancer but stated that if the oncologists tell her she is not likely to benefit, she would be okay with stopping treatment and going on hospice-- the daughter Sharona agrees. Plan for now after discharge is SNF as skilled, eventually transition to hospice and remain out of the hospital. Unfortunately, it is not possible to take the patient home on hospice as the family cannot provide 24-hour care. Past Medical/Surgical History Medical History: Bladder cancer Lung cancer- biopsy pending Hypothyroidism Diabetes mellitus Social History Smoking Status: Current Every Day Smoker History of Alcohol Use: No Drug Use: none Marital Status: Housing Status: lives with family Occupation Status: retired Review of Systems Constitutional: + weakness Respiratory: No shortness of breath, No wheezing Cardiac: No chest pain, No edema Abdomen: + constipation, No nausea, No pain, No vomiting Female : No problem reported Psychiatric: No anxiety Allergies Coded Allergies: Iodinated Diagnostic Agents (Verified Allergy, Unknown, HIVES TO ORAL CONTRAST, 02/06/14) Corticosteroids (Verified Adverse Reaction, Unknown, "CAN'T TAKE HIGH DOSES", 02/06/14) Medications Current Inpatient Medications Medications (Trade) Dose Ordered Sig/Pradeep Route Start Time Stop Time Status Last Admin Dose Admin Acetaminophen (Tylenol Tab) 650 mg Q4H PRN PO 02/03/17 00:30 03/05/17 00:29 Ondansetron HCl 4 mg 4 mg Q6H PRN IV 02/03/17 00:30 03/05/17 00:29 Acetaminophen (Ofirmev Iv) 100 ml @ 400 mls/hr Q8H PRN IV 02/03/17 00:30 03/05/17 00:29 02/04/17 03:50 400 MLS/HR Hydromorphone HCl (Dilaudid Inj) 0.25 mg Q2H PRN IV 02/03/17 00:30 02/17/17 00:29 Hydromorphone HCl 0.5 mg 0.5 mg Q2H PRN IV 02/03/17 00:30 02/17/17 00:29 02/04/17 05:17 0.5 MG Potassium Chloride/Sodium Chloride 1,000 ml @ 125 mls/hr Q8H IV 02/03/17 02:00 03/05/17 01:59 02/05/17 08:30 125 MLS/HR Pantoprazole Sodium/Syringe (Protonix Inj/ Syringe) 10 ml @ 5 mls/min DAILY@11 IV 02/03/17 11:00 03/05/17 10:59 02/05/17 11:55 5 MLS/MIN Glucose (Glucose 40% Gel) UD PRN PO 02/03/17 00:30 03/05/17 00:29 Glucose (Glucose Chew Tab) 1 tabs UD PRN PO 02/03/17 00:30 03/05/17 00:29 Dextrose (Dextrose 50% 50ML Syringe) 50 ml UD PRN IV 02/03/17 00:30 03/05/17 00:29 Glucagon (Glucagon Inj) 1 mg UD PRN SQ 02/03/17 00:30 03/05/17 00:29 Gadobutrol 5 mmol 5 mmol UD PRN IV 02/03/17 03:45 02/07/17 03:44 Dexamethasone Sodium Phosphate 4 mg/Syringe 1 ml @ 1 mls/min Q6H IV 02/03/17 09:00 03/05/17 08:59 02/05/17 08:26 1 MLS/MIN Levothyroxine Sodium/Syringe (Synthroid Inj/ Syringe) 3.75 ml @ 2 mls/min DAILY@09 IV 02/03/17 09:00 03/05/17 08:59 02/05/17 09:26 2 MLS/MIN Insulin Aspart SLIDING SCALE If C... Q6 SC 02/03/17 12:00 03/05/17 06:59 Future hold Vancomycin HCl/ Sodium Chloride (Vancomycin Inj/ Nss 250ml) 266 ml @ 125 mls/hr DAILY@1000 IV 02/04/17 10:00 02/10/17 09:59 02/05/17 09:10 125 MLS/HR Vancomycin HCl (Consult) 1 ea UD PRN N/A 02/03/17 13:00 03/05/17 12:59 Cefepime HCl 1 ea 1 ea UD PRN N/A 02/03/17 13:00 03/05/17 12:59 Cefepime HCl/ Dextrose (Maxipime IV/D5 100ml) 112.5 ml @ 225 mls/hr DAILY@1200 IV 02/04/17 12:00 02/10/17 11:59 02/05/17 11:58 225 MLS/HR Aspirin (Ecotrin Tab) 81 mg QAM PO 02/04/17 09:00 03/06/17 08:59 Hydralazine HCl (HydrALAZINE INJ) 10 mg Q4H PRN IV. 02/04/17 00:45 03/06/17 00:44 02/04/17 16:22 10 MG Physical Exam Date Time Temp Pulse Resp B/P Pulse Ox O2 Delivery O2 Flow Rate FiO2 02/05/17 12:00 Room Air 2.0 02/05/17 11:45 36.7 75 18 146/76 96 Nasal Cannula 2.0 02/05/17 10:45 75 96 02/05/17 08:00 Room Air 2.0 02/05/17 07:57 36.7 67 19 162/63 96 Nasal Cannula 2.0 02/05/17 04:00 Nasal Cannula 2.0 02/05/17 03:12 36.5 81 18 142/78 98 Nasal Cannula 2.0 02/05/17 00:13 36.5 72 18 151/69 97 Nasal Cannula 2.0 02/05/17 00:00 Nasal Cannula 2.0 02/04/17 20:00 Nasal Cannula 2.0 02/04/17 19:25 36.6 102 20 150/67 95 Nasal Cannula 2.0 02/04/17 17:00 89 16 128/74 95 Nasal Cannula 4.0 02/04/17 16:00 62 14 154/77 97 Nasal Cannula 4.0 02/04/17 16:00 Nasal Cannula 4.0 General Appearance: no apparent distress, + thin ENT: + pertinent finding (extremely hard of hearing) Neck: no JVD Respiratory: no respiratory distress, no accessory muscle use, + decreased breath sounds (bilateral bases), + wheezing (faint, expiratory) Cardiovascular: regular rate, rhythm, no edema, + normal peripheral pulses Abdomen: normal bowel sounds, non tender, soft Neurologic/Psychiatric: alert, normal mood/affect, oriented x 3 Laboratory Results Last 24 Hours Test 02/04/17 18:04 02/05/17 00:09 02/05/17 06:03 02/05/17 06:07 Bedside Glucose 110 mg/dl 116 mg/dl 99 mg/dl White Blood Count 17.16 K/uL Red Blood Count 4.11 M/uL Hemoglobin 11.7 g/dL Hematocrit 34.3 % Mean Corpuscular Volume 83.5 fL Mean Corpuscular Hemoglobin 28.5 pg Mean Corpuscular Hemoglobin Concent 34.1 g/dl Platelet Count 181 K/uL Mean Platelet Volume 11.5 fL Neutrophils (%) (Auto) 89.7 % Lymphocytes (%) (Auto) 6.5 % Monocytes (%) (Auto) 2.7 % Eosinophils (%) (Auto) 0.0 % Basophils (%) (Auto) 0.1 % Neutrophils # (Auto) 15.39 K/uL Lymphocytes # (Auto) 1.11 K/uL Monocytes # (Auto) 0.47 K/uL Eosinophils # (Auto) 0.00 K/uL Basophils # (Auto) 0.01 K/uL RDW Standard Deviation 46.4 fL RDW Coefficient of Variation 15.1 % Immature Granulocyte % (Auto) 1.0 % Immature Granulocyte # (Auto) 0.18 K/uL Sodium Level 138 mmol/L Potassium Level 4.6 mmol/L Chloride Level 105 mmol/L Carbon Dioxide Level 26 mmol/L Anion Gap 7.0 mmol/L Blood Urea Nitrogen 27 mg/dl Creatinine 0.70 mg/dl Est Creatinine Clear Calc Drug Dose 56.7 ml/min Estimated GFR () 94.2 Estimated GFR (Non- 81.3 BUN/Creatinine Ratio 39.0 Random Glucose 95 mg/dl Calcium Level 8.1 mg/dl Magnesium Level 2.0 mg/dl Test 02/05/17 11:18 Bedside Glucose 126 mg/dl Assessment & Plan Palliative Performance Scale: 40 % Problem list: Weakness Ambulatory dysfunction Left hip fracture s/p surgery Left sided weakness CVA Lung cancer with mets to brain- s/p EBUS- biopsy pending- Non-small cell vs. transitional cell cancer of bladder. UTI- yeast Goals of care (Z51.5) Palliative care plan: discussed with patient, daughter/POA Sharona Hutchison, and Dr. Kumar -Per patient's wish, DNR/DNI -Goal is for comfort and good quality of life. -Is willing to discuss/decide on treatment options for the cancer based on biopsy results, but her goal is to be comfortable and stay out of the hospital. If the risk outweighs the benefit, patient may decide for no treatment (if even offered). -Family is aware that prognosis is rather poor. -Plan is likely for SNF placement, eventually to transition to hospice care. -Patient has no pain or discomfort at this time. -Noted no BM since admission, please add Colace and Mirilax. May need Dulcolax suppository. Thank you kindly for this consult, I will continue to follow as needed.
--- NOTE | 2017-02-05 18:40 | Family Medicine Progress Note ---
Progress Note Date of Service Feb 05, 2017. Subjective Pt evaluation today including: conversation w/ patient, physical exam, chart review, lab review, review of studies Pain: No pain reported this morning Voiding: no voiding problems, no incontinence Patient is resting comfortably in bed this morning in no acute distress. She is oriented to person and time but not place. She denies any pain but is confused when conversing with her. Constitutional: No chills, No fever Respiratory: No cough, No shortness of breath, No wheezing Cardiovascular: No chest pain Abdomen: No nausea, No pain, No vomiting Female : No dysuria Medications Current Inpatient Medications Medications (Trade) Dose Ordered Sig/Pradeep Route Start Time Stop Time Status Last Admin Dose Admin Acetaminophen (Tylenol Tab) 650 mg Q4H PRN PO 02/03/17 00:30 03/05/17 00:29 Ondansetron HCl 4 mg 4 mg Q6H PRN IV 02/03/17 00:30 03/05/17 00:29 Acetaminophen (Ofirmev Iv) 100 ml @ 400 mls/hr Q8H PRN IV 02/03/17 00:30 03/05/17 00:29 02/04/17 03:50 400 MLS/HR Hydromorphone HCl (Dilaudid Inj) 0.25 mg Q2H PRN IV 02/03/17 00:30 02/17/17 00:29 Hydromorphone HCl 0.5 mg 0.5 mg Q2H PRN IV 02/03/17 00:30 02/17/17 00:29 02/04/17 05:17 0.5 MG Potassium Chloride/Sodium Chloride 1,000 ml @ 125 mls/hr Q8H IV 02/03/17 02:00 03/05/17 01:59 02/05/17 08:30 125 MLS/HR Pantoprazole Sodium/Syringe (Protonix Inj/ Syringe) 10 ml @ 5 mls/min DAILY@11 IV 02/03/17 11:00 03/05/17 10:59 02/05/17 11:55 5 MLS/MIN Glucose (Glucose 40% Gel) UD PRN PO 02/03/17 00:30 03/05/17 00:29 Glucose (Glucose Chew Tab) 1 tabs UD PRN PO 02/03/17 00:30 03/05/17 00:29 Dextrose (Dextrose 50% 50ML Syringe) 50 ml UD PRN IV 02/03/17 00:30 03/05/17 00:29 Glucagon (Glucagon Inj) 1 mg UD PRN SQ 02/03/17 00:30 03/05/17 00:29 Gadobutrol 5 mmol 5 mmol UD PRN IV 02/03/17 03:45 02/07/17 03:44 Dexamethasone Sodium Phosphate 4 mg/Syringe 1 ml @ 1 mls/min Q6H IV 02/03/17 09:00 03/05/17 08:59 02/05/17 08:26 1 MLS/MIN Levothyroxine Sodium/Syringe (Synthroid Inj/ Syringe) 3.75 ml @ 2 mls/min DAILY@09 IV 02/03/17 09:00 03/05/17 08:59 02/05/17 09:26 2 MLS/MIN Insulin Aspart (novoLOG ASPART) SLIDING SCALE If C... Q6 SC 02/03/17 12:00 03/05/17 06:59 Future hold Vancomycin HCl (Consult) 1 ea UD PRN N/A 02/03/17 13:00 03/05/17 12:59 Cefepime HCl 1 ea 1 ea UD PRN N/A 02/03/17 13:00 03/05/17 12:59 Cefepime HCl/ Dextrose (Maxipime IV/D5 100ml) 112.5 ml @ 225 mls/hr DAILY@1200 IV 02/04/17 12:00 02/10/17 11:59 02/05/17 11:58 225 MLS/HR Aspirin (Ecotrin Tab) 81 mg QAM PO 02/04/17 09:00 03/06/17 08:59 Hydralazine HCl 10 mg 10 mg Q4H PRN IV. 02/04/17 00:45 03/06/17 00:44 02/04/17 16:22 10 MG Vancomycin HCl/ Sodium Chloride (Vancomycin Inj/ Nss 250ml) 266 ml @ 125 mls/hr Q16H IV 02/06/17 00:00 02/13/17 00:00 Objective Vital Signs Date Time Temp Pulse Resp B/P Pulse Ox O2 Delivery O2 Flow Rate FiO2 02/05/17 15:57 37.0 87 20 153/64 95 Nasal Cannula 2.0 02/05/17 15:30 Room Air 2.0 02/05/17 12:00 Room Air 2.0 02/05/17 11:45 36.7 75 18 146/76 96 Nasal Cannula 2.0 02/05/17 10:45 75 96 02/05/17 08:00 Room Air 2.0 02/05/17 07:57 36.7 67 19 162/63 96 Nasal Cannula 2.0 02/05/17 04:00 Nasal Cannula 2.0 02/05/17 03:12 36.5 81 18 142/78 98 Nasal Cannula 2.0 02/05/17 00:13 36.5 72 18 151/69 97 Nasal Cannula 2.0 02/05/17 00:00 Nasal Cannula 2.0 02/04/17 20:00 Nasal Cannula 2.0 02/04/17 19:25 36.6 102 20 150/67 95 Nasal Cannula 2.0 Physical Exam General Appearance: WD/WN, no apparent distress Eyes: normal inspection, sclerae normal Neck: supple, no carotid bruits, trachea midline Respiratory/Chest: chest non-tender, lungs clear, normal breath sounds, no respiratory distress, no accessory muscle use Cardiovascular: regular rate, rhythm, no gallop, no murmur Abdomen: normal bowel sounds, non tender, soft Extremities: + pertinent finding (left foot drop 2/2 stroke) Neurologic/Psychiatric: alert Skin: + pertinent finding (bruising over right arm at location of iv site) Laboratory Results Results Past 24 Hours Test 02/05/17 00:09 02/05/17 06:03 02/05/17 06:07 02/05/17 11:18 Range/Units Bedside Glucose 116 99 126 70-90 mg/dl White Blood Count 17.16 4.8-10.8 K/uL Red Blood Count 4.11 4.2-5.4 M/uL Hemoglobin 11.7 12.0-16.0 g/dL Hematocrit 34.3 37-47 % Mean Corpuscular Volume 83.5 80-100 fL Mean Corpuscular Hemoglobin 28.5 25-34 pg Mean Corpuscular Hemoglobin Concent 34.1 32-36 g/dl Platelet Count 181 130-400 K/uL Mean Platelet Volume 11.5 7.4-10.4 fL Neutrophils (%) (Auto) 89.7 % Lymphocytes (%) (Auto) 6.5 % Monocytes (%) (Auto) 2.7 % Eosinophils (%) (Auto) 0.0 % Basophils (%) (Auto) 0.1 % Neutrophils # (Auto) 15.39 1.4-6.5 K/uL Lymphocytes # (Auto) 1.11 1.2-3.4 K/uL Monocytes # (Auto) 0.47 0.11-0.59 K/uL Eosinophils # (Auto) 0.00 0-0.5 K/uL Basophils # (Auto) 0.01 0-0.2 K/uL RDW Standard Deviation 46.4 36.4-46.3 fL RDW Coefficient of Variation 15.1 11.5-14.5 % Immature Granulocyte % (Auto) 1.0 % Immature Granulocyte # (Auto) 0.18 0.00-0.02 K/uL Sodium Level 138 136-145 mmol/L Potassium Level 4.6 3.5-5.1 mmol/L Chloride Level 105 98-107 mmol/L Carbon Dioxide Level 26 21-32 mmol/L Anion Gap 7.0 3-11 mmol/L Blood Urea Nitrogen 27 7-18 mg/dl Creatinine 0.70 0.60-1.20 mg/dl Est Creatinine Clear Calc Drug Dose 56.7 ml/min Estimated GFR () 94.2 Estimated GFR (Non- 81.3 BUN/Creatinine Ratio 39.0 10-20 Random Glucose 95 70-99 mg/dl Calcium Level 8.1 8.5-10.1 mg/dl Magnesium Level 2.0 1.8-2.4 mg/dl Test 02/05/17 16:19 Range/Units Bedside Glucose 100 70-90 mg/dl Assessment and Plan Patient is an 81 year old female that presented to [facility] after a fall most likely 2/2 stroke causing a left sided hip fracture. An EBUS was also performd on a right hilar mass that was positive for cancer, differential being metastasis from his previous bladder cancer or non-small cell carcinoma. Patient has tolerated surgery well and appears confused this morning only oriented to person and partially time. Daughter met with palliative care and decided to make Jolene a do not resuscitate code status and subsequently comfort care measures. She will need SNF placement as per PT/OT assessment. 1) Hip Fracture - POD #2 - Dilaudid for pain control - Telemetry 2) Stroke - MRI Brain - extensive brain mets - Head CT: Small subacute lacunar infarct within right basal ganglia - Tele - NSR with PVCs and PACs - Carotid US unremarkable - Echo: No new abnormalities other than increased LV thickness - Neuro Recs: - BP for first month 150/90-130/80, After 130/80-110/70 - Total Cholesterol goal 100-200 and LDL goal < 70 - HbA1C < 7 - No anticoagulation due to high risk of bleeding - ASA 81 mg 3) Palliative Care - Patient now wishes to be DNR/DNI - Goal of comfort care - Will decide cancer treatment based on biopsy results but goal is comfort - SNF placement on discharge 4) Constipation - No bowel movements since admission - Add Colace and Miralax 5) PT/OT and Speech Therapy - Consult and evaluate - Recommend SNF placement - Swallow evaluation - NPO 6) Lung Cancer with Metastasis to Brain, Liver, and Spine - EBUS by Dr. Macias, awaiting final path - Dr. Castro will perform radiation treatment tomorrow - IV Decadron 4mg q6h 7) Hyperglycemia - Likely d/t steroid use - Accu-checks with Novolog coverage for meals and at bedtime 8) Paroxysmal Afib - NSR - No anticoagulation due to risk of bleeding and brain meta - 81mg Aspirin - Telemetry 9) DVT - SCDs 10) Code Status - DNR Reviewed: Pt Seen/Exam by Me History Resident Physician Supervision Note: I interviewed and examined the patient. Discussed with Dr. Persaud and agree with findings and plan as documented in the note. Any exceptions or clarifications are listed here: Patient is hard of hearing but with hearing aid in, is able to answer my questions. She denies pain, no chest pain or shortness of breath. Vitals and telemetry reviewed-a few runs of 3-4 beats of PVCs and short runs of atrial tachycardia Hard of hearing, alert and awake and oriented 1 Regular rate and rhythm, no murmurs rubs or gallops Clear to auscultation bilaterally, no wheezes crackles or rhonchi Neuro-complete flaccid paralysis of left-sided body Extremities-left hip with dressing is clean, dry, and intact 81-year-old female here with left-sided hemiparesis and acute CVA with fall and left hip fracture, with metastatic cancer to the brain, spine, and liver. -Aspirin for CVA prevention, does have history of paroxysmal A. fib, however is not a good anticoagulation candidate given brain metastases at risk for bleeding -Awaiting pathology for diagnosis of which type of primary cancer she has and then can decide upon definitive treatment -Appreciate palliative care consult -Postoperative orthopedic care as per orthopedics team-appreciated -For whole brain radiation tomorrow -Continue cefepime and vancomycin for 5 day course, stop after that-was being used to cover in case of pulmonary infection Documented By: Cynthia Kumar
[2017-02-05] MEDS: DOCUSATE SODIUM 100 MG CAP PO SCH (21:38)
[2017-02-05] MEDS: SODIUM CHLORIDE 0.9% 1000ML 1,000 ML IV SCH (22:24)
[2017-02-05] MEDS ORDERED: NURSING VERBAL MED ORDER ONE (22:30)
[2017-02-06] MEDS ORDERED: NURSING DECISION MEDICATION ORDER SCH (00:15)
[2017-02-06] MEDS: DEXAMETHASONE INJ 4 MG in SYRINGE 0 ML IV SCH ×5 (03:18→21:31)
[2017-02-06 04:15] VITALS: BP 154/91; PULSE 55; TEMP 36.6; O2SAT 96
[2017-02-06] MEDS: SODIUM CHLORIDE 0.9% 1000ML 1,000 ML IV SCH (05:31)
[2017-02-06] MEDS: INSULIN ASPART 100 UNITS/ML 3 ML PEN SC SCH ×4 (07:00→21:00)
[2017-02-06] MEDS: POLYETHYLENE (MIRALAX) 17 GM PACK PO SCH (07:57)
[2017-02-06] MEDS: DOCUSATE SODIUM 100 MG CAP PO SCH ×2 (07:57→20:36)
[2017-02-06] MEDS: ASPIRIN 81 MG ECTAB PO SCH (07:58)
[2017-02-06 08:07] VITALS: BP 185/66; PULSE 74; TEMP 36.7; O2SAT 96
[2017-02-06] MEDS: LEVOTHYROXINE SODIUM INJ 75 MCG in SYRINGE 0 ML IV SCH (08:56)
[2017-02-06] MEDS ORDERED: VANCOMYCIN TROUGH SCH (09:30)
--- NOTE | 2017-02-06 11:17 | Hematology/Oncology Prog Note ---
Hematology/Onc Progress Note Date of Service Feb 06, 2017. Diagnoses Hip fracture Recent CVA Radiologic findings consistent with brain metastasis Right lower lobe lung mass Medications Medications Administered Medications (Trade) Dose Ordered Sig/Pradeep Route Start Time Stop Time Status Last Admin Dose Admin Lactated Ringer's (Lr 1000ml) 1,000 ml @ 75 mls/hr [id number] IV 02/02/17 22:06 02/03/17 02:01 DC 02/02/17 22:33 75 MLS/HR Hydromorphone HCl (Dilaudid Inj) 0.25 mg Q20M PRN IV 02/02/17 22:15 02/03/17 02:01 DC 02/02/17 23:20 0.25 MG Hydromorphone HCl (Dilaudid Inj) 0.5 mg Q20M PRN IV 02/02/17 22:15 02/03/17 02:01 DC 02/02/17 22:32 0.5 MG Ondansetron HCl (Zofran Inj) 4 mg NOW STAT IV 02/02/17 22:06 02/02/17 22:11 DC 02/02/17 22:31 4 MG Ceftriaxone Sodium (Rocephin Inj) 1 gm NOW STAT IV 02/02/17 23:07 02/02/17 23:08 DC 02/03/17 00:30 1 GM Aspirin 324 mg 324 mg NOW STAT PO 02/02/17 23:08 02/02/17 23:09 DC 02/02/17 23:19 324 MG Acetaminophen (Ofirmev Iv) 100 ml @ 400 mls/hr Q8H PRN IV 02/03/17 00:30 03/05/17 00:29 02/04/17 03:50 400 MLS/HR Hydromorphone HCl 0.5 mg 0.5 mg Q2H PRN IV 02/03/17 00:30 02/17/17 00:29 02/04/17 05:17 0.5 MG Potassium Chloride/Sodium Chloride 1,000 ml @ 125 mls/hr Q8H IV 02/03/17 02:00 02/05/17 22:33 DC 02/05/17 18:28 125 MLS/HR Pantoprazole Sodium 40 mg/ Syringe 10 ml @ 5 mls/min DAILY@11 IV 02/03/17 11:00 03/05/17 10:59 02/05/17 11:55 5 MLS/MIN Dexamethasone Sodium Phosphate 4 mg/Syringe 1 ml @ 1 mls/min Q6H IV 02/03/17 09:00 03/05/17 08:59 02/06/17 07:58 1 MLS/MIN Levothyroxine Sodium 75 mcg/ Syringe 3.75 ml @ 2 mls/min DAILY@09 IV 02/03/17 09:00 03/05/17 08:59 02/06/17 08:56 2 MLS/MIN Cefepime HCl 2000 mg/Dextrose 112.5 ml @ 200 mls/hr TODAY@1300 IV 02/03/17 13:00 02/03/17 13:34 DC 02/03/17 13:08 200 MLS/HR Vancomycin HCl 800 mg/Sodium Chloride 266 ml @ 125 mls/hr DAILY@1000 IV 02/04/17 10:00 02/05/17 14:54 DC 02/05/17 09:10 125 MLS/HR Vancomycin HCl 1150 mg/Sodium Chloride 273 ml @ 125 mls/hr 1330 IV 02/03/17 13:30 02/03/17 15:42 DC 02/03/17 13:41 125 MLS/HR Cefepime HCl/ Dextrose (Maxipime IV/D5 100ml) 112.5 ml @ 225 mls/hr DAILY@1200 IV 02/04/17 12:00 02/10/17 11:59 02/05/17 11:58 225 MLS/HR Aspirin (Ecotrin Tab) 81 mg QAM PO 02/04/17 09:00 03/06/17 08:59 02/06/17 07:58 81 MG Hydralazine HCl (HydrALAZINE INJ) 10 mg Q4H PRN IV. 02/04/17 00:45 03/06/17 00:44 02/04/17 16:22 10 MG Bupivacaine HCl/ Epinephrine Bitart (Sensorcaine/ Epinephrine 0.5% Mpf 1:200,000) 30 ml STK-MED ONCE .ROUTE 02/04/17 07:12 02/04/17 07:13 DC 02/04/17 09:00 30 ML Hydromorphone HCl 0.5 mg 0.5 mg Q5M PRN IV 02/04/17 07:45 02/04/17 12:45 DC 02/04/17 11:18 0.25 MG Vancomycin HCl 800 mg/Sodium Chloride 266 ml @ 125 mls/hr Q16H IV 02/06/17 00:00 02/13/17 00:00 02/05/17 23:53 125 MLS/HR Sodium Chloride (Nss 1000ml) 1,000 ml @ 100 mls/hr Q10H IV 02/05/17 19:00 02/06/17 07:57 DC 02/06/17 05:31 100 MLS/HR Docusate Sodium (coLACE CAP) 100 mg BID PO 02/05/17 21:00 03/07/17 20:59 02/06/17 07:57 100 MG Polyethylene (Miralax Powder Packet) 17 gm DAILY PO 02/06/17 09:00 03/08/17 08:59 02/06/17 07:57 17 GM Subjective Pathology is still pending. She's alert today and more responsive. Having some pain at the site of surgery Review of Systems: Constitutional: Negative for night sweats, or fever Eyes: Negative for event change of vision ENT: Negative for epistaxis, nasal discharge, sore throat, or deafness Cardiovascular: Negative for chest pain, palpitations, dizziness, diaphoresis Respiratory: Negative for new shortness of breath,hemoptysis, or purulent cough Gastrointestinal: Negative for diarrhea, hematemesis, melena, nausea, vomiting , or dyspepsia Integumentary (skin): Negative for rash or jaundice discoloration Genitourinary: Negative for urinary frequency, hematuria, or dysuria Neurological: Negative for weakness, seizure activity, headache, or dizziness Lymphatic/Hematologic: Negative for petechiae, bleeding or new adenopathy Musculoskeletal: Status post hip repair Allergic/Immunologic: Negative for unusual rash or pruritis. Vital Signs Vital Signs Past 12 Hours Date Time Temp Pulse Resp B/P Pulse Ox O2 Delivery O2 Flow Rate FiO2 02/06/17 08:07 36.7 74 18 185/66 96 Nasal Cannula 2.0 02/06/17 04:15 36.6 55 22 154/91 96 Nasal Cannula 2.0 02/06/17 04:00 Nasal Cannula 2.0 02/05/17 23:51 36.9 67 20 144/69 97 Nasal Cannula 2.0 02/05/17 23:50 Nasal Cannula 2.0 Physical Exam Constitutional: vitals are stable. Eyes: Eyes are LUIS ALFREDO EOMI without conjuctival erythema or icterus. ENT: External examination was negative for masses. Neck: Negative for masses or palpable thyromegaly Respiratory: Lung sounds were generally clear bilaterally Cardiovascular: Heart was RRR without significant murmur, gallops aoe rubs Gastrointestinal: No palpable hepatic or splenomegaly. The abdomen was soft with normal bowel sounds. Lymphatic system: there was no palpable peripheral lymphadenopathy Musculoskeletal System: The musculoskeletal system seemed concordant with age. Skin: The skin was negative for jaundice. Psychiatric exam: Was essentially negative with normal mood and effect. 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 She would have to recover quite a bit before considering any systemic therapy. We will await of course the histology report. She will need considerable rehabilitation. If she wants to pursue systemic therapy then she may need whole brain radiation at the outset of any sort of therapy.
[2017-02-06 11:41] VITALS: BP 126/64; PULSE 60; TEMP 36.5; O2SAT 97
[2017-02-06] MEDS: CEFEPIME IV 2000 MG in DEXTROSE 5% 100ML IV SCH (11:52)
[2017-02-06] MEDS: PANTOprazole INJ 40 MG in SYRINGE 0 ML IV SCH (11:53)
[2017-02-06 15:53] VITALS: BP 134/59; PULSE 55; TEMP 36.6; O2SAT 98
--- NOTE | 2017-02-06 16:14 | Family Medicine Progress Note ---
Progress Note Date of Service Feb 06, 2017. Subjective Pt evaluation today including: conversation w/ patient, physical exam, chart review, lab review, review of studies Pain: No pain reported this morning Voiding: gramajo catheter in place Patient is resting comfortably in bed this afternoon with no acute events overnight. Jolene returned this afternoon from whole brain radiation and appears to have tolerated the procedure well.She denies any pain and is answering questions appropriately at bedside. As per nurse she had only eaten part of her breakfast today and refused lunch. Additional Comments: Confused this morning and unable to elicit proper ROS Medications Current Inpatient Medications Medications (Trade) Dose Ordered Sig/Pradeep Route Start Time Stop Time Status Last Admin Dose Admin Acetaminophen (Tylenol Tab) 650 mg Q4H PRN PO 02/03/17 00:30 03/05/17 00:29 Ondansetron HCl 4 mg 4 mg Q6H PRN IV 02/03/17 00:30 03/05/17 00:29 Acetaminophen (Ofirmev Iv) 100 ml @ 400 mls/hr Q8H PRN IV 02/03/17 00:30 03/05/17 00:29 02/04/17 03:50 400 MLS/HR Hydromorphone HCl (Dilaudid Inj) 0.25 mg Q2H PRN IV 02/03/17 00:30 02/17/17 00:29 Hydromorphone HCl 0.5 mg 0.5 mg Q2H PRN IV 02/03/17 00:30 02/17/17 00:29 02/04/17 05:17 0.5 MG Pantoprazole Sodium/Syringe (Protonix Inj/ Syringe) 10 ml @ 5 mls/min DAILY@11 IV 02/03/17 11:00 03/05/17 10:59 02/06/17 11:53 5 MLS/MIN Glucose (Glucose 40% Gel) UD PRN PO 02/03/17 00:30 03/05/17 00:29 Glucose (Glucose Chew Tab) 1 tabs UD PRN PO 02/03/17 00:30 03/05/17 00:29 Dextrose (Dextrose 50% 50ML Syringe) 50 ml UD PRN IV 02/03/17 00:30 03/05/17 00:29 Glucagon (Glucagon Inj) 1 mg UD PRN SQ 02/03/17 00:30 03/05/17 00:29 Gadobutrol 5 mmol 5 mmol UD PRN IV 02/03/17 03:45 02/07/17 03:44 Dexamethasone Sodium Phosphate 4 mg/Syringe 1 ml @ 1 mls/min Q6H IV 02/03/17 09:00 03/05/17 08:59 02/06/17 07:58 1 MLS/MIN Levothyroxine Sodium/Syringe (Synthroid Inj/ Syringe) 3.75 ml @ 2 mls/min DAILY@09 IV 02/03/17 09:00 03/05/17 08:59 02/06/17 08:56 2 MLS/MIN Vancomycin HCl (Consult) 1 ea UD PRN N/A 02/03/17 13:00 03/05/17 12:59 Cefepime HCl 1 ea 1 ea UD PRN N/A 02/03/17 13:00 03/05/17 12:59 Cefepime HCl/ Dextrose (Maxipime IV/D5 100ml) 112.5 ml @ 225 mls/hr DAILY@1200 IV 02/04/17 12:00 02/07/17 23:59 02/06/17 11:52 225 MLS/HR Aspirin (Ecotrin Tab) 81 mg QAM PO 02/04/17 09:00 03/06/17 08:59 02/06/17 07:58 81 MG Hydralazine HCl 10 mg 10 mg Q4H PRN IV. 02/04/17 00:45 03/06/17 00:44 02/04/17 16:22 10 MG Vancomycin HCl/ Sodium Chloride (Vancomycin Inj/ Nss 250ml) 266 ml @ 125 mls/hr Q16H IV 02/06/17 00:00 02/07/17 23:59 02/05/17 23:53 125 MLS/HR Docusate Sodium (coLACE CAP) 100 mg BID PO 02/05/17 21:00 03/07/17 20:59 02/06/17 07:57 100 MG Polyethylene (Miralax Powder Packet) 17 gm DAILY PO 02/06/17 09:00 03/08/17 08:59 02/06/17 07:57 17 GM Insulin Aspart (novoLOG ASPART) SLIDING SCALE If C... ACHS SC 02/06/17 07:00 03/08/17 06:59 Objective Vital Signs Date Time Temp Pulse Resp B/P Pulse Ox O2 Delivery O2 Flow Rate FiO2 02/06/17 12:00 Room Air 2.0 02/06/17 11:41 36.5 60 19 126/64 97 Nasal Cannula 2.0 02/06/17 08:07 36.7 74 18 185/66 96 Nasal Cannula 2.0 02/06/17 08:00 Room Air 2.0 02/06/17 04:15 36.6 55 22 154/91 96 Nasal Cannula 2.0 02/06/17 04:00 Nasal Cannula 2.0 02/05/17 23:51 36.9 67 20 144/69 97 Nasal Cannula 2.0 02/05/17 23:50 Nasal Cannula 2.0 02/05/17 20:00 Nasal Cannula 2.0 02/05/17 19:32 36.8 45 22 115/57 96 Nasal Cannula 2.0 02/05/17 15:57 37.0 87 20 153/64 95 Nasal Cannula 2.0 Physical Exam General Appearance: WD/WN, no apparent distress Eyes: normal inspection, sclerae normal Neck: supple, no carotid bruits Respiratory/Chest: chest non-tender, lungs clear, normal breath sounds, no respiratory distress Cardiovascular: regular rate, rhythm, no edema, no murmur Abdomen: normal bowel sounds, non tender, soft Extremities: non-tender, normal inspection, no calf tenderness, + pertinent finding (1+ Pitting to left knee) Neurologic/Psychiatric: alert, + pertinent finding (Left sided weakness) Laboratory Results Results Past 24 Hours Test 02/05/17 16:19 02/05/17 20:04 02/06/17 06:43 02/06/17 11:10 Range/Units Bedside Glucose 100 112 112 116 70-90 mg/dl Assessment and Plan Patient is an 81 year old female that presented to [facility] after a fall most likely 2/2 stroke causing a left sided hip fracture. 1) Hip Fracture - POD #3 s/p ORIF for Left intertrochanteric fracture - Dilaudid for pain control - 0.5mg IV q2h - Telemetry - NSR with occasional PVC and PAC 2) Stroke - Head CT: Small subacute lacunar infarct within right basal ganglia - MRI Brain - extensive brain mets - Carotid US unremarkable - Echo: No new abnormalities other than increased LV thickness - Neuro Recs: - BP for first month 150/90-130/80, After 130/80-110/70 - Total Cholesterol goal 100-200 and LDL goal < 70 - HbA1C < 7 - No anticoagulation due to high risk of bleeding 2/2 brain metastasis - ASA 81 mg for CVA protection 3) Lung Cancer with Metastasis to Brain, Liver, and Spine - EBUS by Dr. Macias, awaiting final path - Whole brain radiation today by Dr. Castro - IV Decadron 4mg q6h - Followed by Heme/Onc, seen by Dr. Barreto this morning. Patient currently would need to recovered quite a bit to consider systemic therapy 4) Leukocytosis - Cefepime and Vancomycin (Day 4/5) started by Pulm after bronchoscopy 5) Palliative Care - Patient now wishes to be DNR/DNI - Will decide cancer treatment based on biopsy results - SNF placement on discharge 6) Constipation - Colace and Miralax 7) PT/OT and Speech Therapy - Recommendations 1.Dental soft Moist with thins 2.Aspiration precautions straws ok 3.Safe swallow strategies (small bites, small sips, slow rate) 4.JIGGER ARTISAN will continue to monitor in EMR. No direct treatment planned unless change in status warrants. 8) Hyperglycemia - Likely d/t steroid use - Accu-checks with Novolog coverage for meals and at bedtime 9) Paroxysmal Afib - NSR - No anticoagulation due to high risk of bleeding 2/2 brain metastasis - ASA 81 mg for CVA protection 10) DVT - SCDs 11) Code Status - DNR History Resident Physician Supervision Note: I interviewed and examined the patient. Discussed with Dr. Persaud and agree with findings and plan as documented in the note. Any exceptions or clarifications are listed here: Patient is hard of hearing but with hearing aid in, is able to answer my questions. She denies pain, no chest pain or shortness of breath. Vitals and telemetry reviewed Hard of hearing, alert and awake and oriented 1 Regular rate and rhythm with extra beats, no murmurs rubs or gallops Clear to auscultation bilaterally, no wheezes crackles or rhonchi Neuro-complete flaccid paralysis of left-sided body Extremities-left hip with dressing is clean, dry, and intact 81-year-old female here with left-sided hemiparesis and acute CVA with fall and left hip fracture, with metastatic cancer to the brain, spine, and liver. -Aspirin once daily for CVA prevention and DVT prophylaxis, does have history of paroxysmal A. fib, however is not a good anticoagulation candidate given brain metastases at risk for bleeding -Awaiting pathology for diagnosis of which type of primary cancer she has and then can decide upon definitive treatment-preliminary report as per oncology is a poorly differentiated carcinoma and would need considerable rehabilitation prior to starting systemic chemotherapy if at all as per oncology -Appreciate palliative care consult -Postoperative orthopedic care as per orthopedics [id number] up with orthopedics in 2 weeks -For whole brain radiation to continue, on Decadron and need to discuss with oncology about further dosing on this -Continue cefepime and vancomycin for 5 day course, stop after that-was being used to cover in case of pulmonary infection -Considering placement at [facility]-is stable for discharge whenever placement can be arranged Documented By: Cynthia Kumar
--- NOTE | 2017-02-06 18:39 | PROGRESS NOTE ---
DATE: 02/06/2017 SUBJECTIVE: An 81-year-old white female postop day 2 from IM nailing of left intertrochanteric fracture. Seems to be doing okay. She was pretty much sleeping in bed when I visited with her this afternoon. PHYSICAL EXAMINATION: Her dressing is clean, dry and intact. Leg is well aligned. She still does not have any real motor function on the left side. LABORATORY DATA: Hemoglobin is 11.7, hematocrit 34.3. ASSESSMENT: An 81-year-old white female with widely metastatic cancer, postop day 2 from intramedullary nailing of left intertrochanteric fracture. This was not a pathological fracture. She is undergoing radiation treatment to her brain. PLAN: 1. DVT prophylaxis including thigh-high TEDs, SCDs, and I think the plan is to continue on aspirin. I am okay with any anticoagulation deemed appropriate by the medical staff. It is a hard situation. She has got a hypercoagulable state, but also high risk for bleeding and falling. 2. PT/OT. She can weightbear as tolerated on this left leg. There are no restrictions from my standpoint. 3. Medical management as per the medicine service. 4. Disposition: She is orthopedically stable and acceptable for discharge at any time medically stable. I need to see her back 2 weeks postop. Any questions can be directed to me at [phone].
[2017-02-06 19:40] VITALS: BP 141/59; PULSE 69; TEMP 36.5; O2SAT 96
[2017-02-06] MEDS: VANCOMYCIN INJ 800 MG in SODIUM CHLORIDE 0.9% 250ML 250 ML IV SCH (20:51)
[2017-02-06 23:32] VITALS: BP 141/79; PULSE 49; TEMP 36.4; O2SAT 97
[2017-02-07] MEDS: DEXAMETHASONE INJ 4 MG in SYRINGE 0 ML IV SCH ×4 (03:14→21:33)
[2017-02-07 03:25] VITALS: BP 140/57; PULSE 52; TEMP 36.5; O2SAT 96
[2017-02-07] MEDS ORDERED: VANCOMYCIN TROUGH ONE (07:30)
[2017-02-07] MEDS: VANCOMYCIN INJ 800 MG in SODIUM CHLORIDE 0.9% 250ML 250 ML IV SCH (07:33)
[2017-02-07 07:36] VITALS: BP 129/67; PULSE 88; TEMP 36.3; O2SAT 94
[2017-02-07] MEDS: ASPIRIN 81 MG ECTAB PO SCH (07:47)
[2017-02-07] MEDS: POLYETHYLENE (MIRALAX) 17 GM PACK PO SCH (07:47)
[2017-02-07] MEDS: DOCUSATE SODIUM 100 MG CAP PO SCH ×2 (07:47→21:33)
[2017-02-07 07:49] LABS: COMPLETE YES; HEMATOCRIT 30.5 % (37-47); IG% 0.8 %; LYMPH % 2.5 %; LYMPH ABS # 0.33 K/uL (1.2-3.4); MEAN CELL VOLUME 83.6 fL (80-100); MEAN CORPUSCULAR HEMOGLOBIN 28.5 pg (25-34); MEAN CORPUSCULAR HGB CONC 34.1 g/dl (32-36); MONO % 5.6 %; NEUT % 91.1 %; PLATELET COUNT 160 K/uL (130-400); RED BLOOD COUNT 3.65 M/uL (4.2-5.4); WHITE BLOOD COUNT 12.98 K/uL (4.8-10.8)
[2017-02-07] MEDS: LEVOTHYROXINE SODIUM INJ 75 MCG in SYRINGE 0 ML IV SCH (08:50)
[2017-02-07] MEDS: INSULIN ASPART 100 UNITS/ML 3 ML PEN SC SCH ×4 (09:31→21:00)
[2017-02-07] MEDS: CEFEPIME IV 2000 MG in DEXTROSE 5% 100ML IV SCH (11:25)
[2017-02-07 11:27] VITALS: BP 126/54; PULSE 79; TEMP 36.5; O2SAT 96
[2017-02-07] MEDS: PANTOprazole INJ 40 MG in SYRINGE 0 ML IV SCH (12:17)
--- NOTE | 2017-02-07 12:27 | Family Medicine Progress Note ---
Progress Note Date of Service Feb 07, 2017. Subjective Pt evaluation today including: conversation w/ patient, physical exam, chart review, lab review, review of studies Pain: Patient denies any pain this morning Voiding: gramajo catheter in place Patient was resting comfortably in bed this morning with no acute complaints overnight. She was alert and appropriately answered question, and was oriented to person. She was taken to radiation oncology to see Dr. Castro this morning for another round of whole brain radiation but was combative so the procedure was cancelled. Constitutional: No chills, No fever Respiratory: No cough, No shortness of breath Cardiovascular: No chest pain Abdomen: No diarrhea, No nausea, No pain, No vomiting Female : No dysuria Medications Current Inpatient Medications Medications (Trade) Dose Ordered Sig/Pradeep Route Start Time Stop Time Status Last Admin Dose Admin Acetaminophen (Tylenol Tab) 650 mg Q4H PRN PO 02/03/17 00:30 03/05/17 00:29 Ondansetron HCl 4 mg 4 mg Q6H PRN IV 02/03/17 00:30 03/05/17 00:29 Acetaminophen (Ofirmev Iv) 100 ml @ 400 mls/hr Q8H PRN IV 02/03/17 00:30 03/05/17 00:29 02/04/17 03:50 400 MLS/HR Hydromorphone HCl (Dilaudid Inj) 0.25 mg Q2H PRN IV 02/03/17 00:30 02/17/17 00:29 Hydromorphone HCl 0.5 mg 0.5 mg Q2H PRN IV 02/03/17 00:30 02/17/17 00:29 02/04/17 05:17 0.5 MG Pantoprazole Sodium/Syringe (Protonix Inj/ Syringe) 10 ml @ 5 mls/min DAILY@11 IV 02/03/17 11:00 03/05/17 10:59 02/06/17 11:53 5 MLS/MIN Glucose (Glucose 40% Gel) UD PRN PO 02/03/17 00:30 03/05/17 00:29 Glucose (Glucose Chew Tab) 1 tabs UD PRN PO 02/03/17 00:30 03/05/17 00:29 Dextrose (Dextrose 50% 50ML Syringe) 50 ml UD PRN IV 02/03/17 00:30 03/05/17 00:29 Glucagon 1 mg 1 mg UD PRN SQ 02/03/17 00:30 03/05/17 00:29 Dexamethasone Sodium Phosphate 4 mg/Syringe 1 ml @ 1 mls/min Q6H IV 02/03/17 09:00 03/05/17 08:59 02/07/17 08:44 1 MLS/MIN Levothyroxine Sodium/Syringe (Synthroid Inj/ Syringe) 3.75 ml @ 2 mls/min DAILY@09 IV 02/03/17 09:00 03/05/17 08:59 02/07/17 08:50 2 MLS/MIN Vancomycin HCl (Consult) 1 ea UD PRN N/A 02/03/17 13:00 03/05/17 12:59 Cefepime HCl 1 ea 1 ea UD PRN N/A 02/03/17 13:00 03/05/17 12:59 Cefepime HCl/ Dextrose (Maxipime IV/D5 100ml) 112.5 ml @ 225 mls/hr DAILY@1200 IV 02/04/17 12:00 02/07/17 23:59 02/06/17 11:52 225 MLS/HR Aspirin (Ecotrin Tab) 81 mg QAM PO 02/04/17 09:00 03/06/17 08:59 02/07/17 07:47 81 MG Hydralazine HCl 10 mg 10 mg Q4H PRN IV. 02/04/17 00:45 03/06/17 00:44 02/04/17 16:22 10 MG Vancomycin HCl/ Sodium Chloride (Vancomycin Inj/ Nss 250ml) 266 ml @ 125 mls/hr Q16H IV 02/06/17 00:00 02/07/17 23:59 02/07/17 07:33 125 MLS/HR Docusate Sodium (coLACE CAP) 100 mg BID PO 02/05/17 21:00 03/07/17 20:59 02/07/17 07:47 100 MG Polyethylene (Miralax Powder Packet) 17 gm DAILY PO 02/06/17 09:00 03/08/17 08:59 02/07/17 07:47 17 GM Insulin Aspart (novoLOG ASPART) SLIDING SCALE If C... ACHS SC 02/06/17 07:00 03/08/17 06:59 02/07/17 09:31 6 UNITS Objective Vital Signs Date Time Temp Pulse Resp B/P Pulse Ox O2 Delivery O2 Flow Rate FiO2 02/07/17 08:00 Room Air 02/07/17 07:36 36.3 88 18 129/67 94 Room Air 02/07/17 04:00 Room Air 02/07/17 03:25 36.5 52 20 140/57 96 Room Air 02/06/17 23:59 Room Air 02/06/17 23:32 36.4 49 20 141/79 97 Nasal Cannula 2.0 02/06/17 20:00 Room Air 02/06/17 19:40 36.5 69 18 141/59 96 Room Air 02/06/17 16:00 Room Air 02/06/17 15:53 36.6 55 18 134/59 98 Nasal Cannula 2.0 02/06/17 12:00 Room Air 2.0 02/06/17 11:41 36.5 60 19 126/64 97 Nasal Cannula 2.0 Physical Exam General Appearance: WD/WN, no apparent distress Eyes: normal inspection, sclerae normal Neck: supple, no carotid bruits Respiratory/Chest: chest non-tender, lungs clear, normal breath sounds, no respiratory distress, no accessory muscle use Cardiovascular: regular rate, rhythm, no edema, no gallop Abdomen: normal bowel sounds, non tender, soft Extremities: no calf tenderness, + swelling (left leg +1 edema) Neurologic/Psychiatric: alert Laboratory Results Results Past 24 Hours Test 02/06/17 11:10 02/06/17 16:23 02/06/17 20:47 02/07/17 06:45 Range/Units Bedside Glucose 116 133 118 143 70-90 mg/dl Test 02/07/17 07:39 Range/Units White Blood Count 12.98 4.8-10.8 K/uL Red Blood Count 3.65 4.2-5.4 M/uL Hemoglobin 10.4 12.0-16.0 g/dL Hematocrit 30.5 37-47 % Mean Corpuscular Volume 83.6 80-100 fL Mean Corpuscular Hemoglobin 28.5 25-34 pg Mean Corpuscular Hemoglobin Concent 34.1 32-36 g/dl Platelet Count 160 130-400 K/uL Mean Platelet Volume 11.0 7.4-10.4 fL Neutrophils (%) (Auto) 91.1 % Lymphocytes (%) (Auto) 2.5 % Monocytes (%) (Auto) 5.6 % Eosinophils (%) (Auto) 0.0 % Basophils (%) (Auto) 0.0 % Neutrophils # (Auto) 11.81 1.4-6.5 K/uL Lymphocytes # (Auto) 0.33 1.2-3.4 K/uL Monocytes # (Auto) 0.73 0.11-0.59 K/uL Eosinophils # (Auto) 0.00 0-0.5 K/uL Basophils # (Auto) 0.00 0-0.2 K/uL RDW Standard Deviation 45.7 36.4-46.3 fL RDW Coefficient of Variation 14.9 11.5-14.5 % Immature Granulocyte % (Auto) 0.8 % Immature Granulocyte # (Auto) 0.11 0.00-0.02 K/uL Assessment and Plan Patient is an 81 year old female that presented to [facility] [place] after a fall most likely 2/2 stroke causing a left sided hip fracture. 1) Hip Fracture - POD #4 s/p ORIF for Left intertrochanteric fracture - Dilaudid for pain control - 0.5mg IV q2h PRN --> Not used since 02/04 - Transfer off Telemetry 2) Stroke - Head CT: Small subacute lacunar infarct within right basal ganglia - MRI Brain - extensive brain mets - Carotid US unremarkable - Echo: No new abnormalities other than increased LV thickness - Neuro Recs: - BP for first month 150/90-130/80, After 130/80-110/70 - Total Cholesterol goal 100-200 and LDL goal < 70 - HbA1C < 7 - No anticoagulation due to high risk of bleeding 2/2 brain metastasis - ASA 81 mg for CVA protection 3) Lung Cancer with Metastasis to Brain, Liver, and Spine - EBUS by Dr. Macias, awaiting final path --> preliminary is poorly differentiated carcinoma - Refuse whole brain radiation today, Dr. Castro and Carla Tavera are in ongiong discussion with the family about hospice care and plan - IV Decadron 4mg q6h --> Discuss plan 4) Leukocytosis - Cefepime and Vancomycin (Day 5/5) started by Pulm after bronchoscopy 5) Palliative Care - DNR/DNI status - Combative today and unable to perform whole brain radiation - Discuss Hospice with family 6) Constipation - Colace and Miralax 7) PT/OT and Speech Therapy - Recommendations 1.Dental soft Moist with thins 2.Aspiration precautions straws ok 3.Safe swallow strategies (small bites, small sips, slow rate) 4.LENDING ACTIVITIES SUPERVISOR will continue to monitor in EMR. No direct treatment planned unless change in status warrants. 8) Hyperglycemia - Likely d/t steroid use - Accu-checks with Novolog coverage for meals and at bedtime 9) Paroxysmal Afib - NSR - No anticoagulation due to high risk of bleeding 2/2 brain metastasis - ASA 81 mg for CVA protection 10) DVT - SCDs 11) Code Status - DNR History Resident Physician Supervision Note: I interviewed and examined the patient. Discussed with Dr. Persaud and agree with findings and plan as documented in the note. Any exceptions or clarifications are listed here: She is comfortable, tolerating by mouth and is being fed by the nurse. Does have some pain in the left hip. I discussed the pathology results showing poorly differentiated adenocarcinoma with lung as the primary with the patient and her son at the bedside. Vitals reviewed Hard of hearing, alert and awake and oriented 1 Regular rate and rhythm with extra beats, no murmurs rubs or gallops Clear to auscultation bilaterally, no wheezes crackles or rhonchi Neuro-complete flaccid paralysis of left-sided body Extremities-left hip with dressing is clean, dry, and intact 81-year-old female here with left-sided hemiparesis and acute CVA with fall and left hip fracture, with metastatic cancer to the brain, spine, and liver. -Aspirin once daily for CVA prevention and DVT prophylaxis, does have history of paroxysmal A. fib, however is not a good anticoagulation candidate given brain metastases at risk for bleeding -Cancer is a poorly differentiated adenocarcinoma with lung [id number] and other studies for cytogenetics are pending-follow up with oncology within 1 week to discuss any possible chemotherapy-patient states that she would be willing to try chemotherapy if offered -Appreciate palliative care consult-plan is for transfer to SNF and then possible transition to hospice care if no treatment available -Postoperative orthopedic care as per orthopedics [id number] up with orthopedics in 2 weeks from the time of surgery -For whole brain radiation to continue, on Decadron and need to discuss with oncology about further dosing on this -Discontinue cefepime and vancomycin as has completed a 5 day course for possible pneumonia -Considering placement at [facility]-is stable for discharge whenever placement can be arranged Documented By: Cynthia Kumar
--- NOTE | 2017-02-07 14:09 | Radiation Oncology Progress Nt ---
Radiation Oncology Progress Nt Date of Service Date of Service: Feb 07, 2017. Subjective Pt evaluation today including: conversation w/ family (Healthcare Power of Attoney: Sharona, daughter), conversation w/ [facility] wms consultant (Dr. Kumar and Dr. Barreto ) Objective Vital Signs Date Time Temp Pulse Resp B/P Pulse Ox O2 Delivery O2 Flow Rate FiO2 02/07/17 12:00 Room Air 02/07/17 11:27 36.5 79 20 126/54 96 Room Air 02/07/17 08:00 Room Air 02/07/17 07:36 36.3 88 18 129/67 94 Room Air 02/07/17 04:00 Room Air 02/07/17 03:25 36.5 52 20 140/57 96 Room Air 02/06/17 23:59 Room Air 02/06/17 23:32 36.4 49 20 141/79 97 Nasal Cannula 2.0 02/06/17 20:00 Room Air 02/06/17 19:40 36.5 69 18 141/59 96 Room Air 02/06/17 16:00 Room Air 02/06/17 15:53 36.6 55 18 134/59 98 Nasal Cannula 2.0 Laboratory Results Last 24 Hours Test 02/06/17 16:23 02/06/17 20:47 02/07/17 06:45 02/07/17 07:39 Bedside Glucose 133 mg/dl 118 mg/dl 143 mg/dl White Blood Count 12.98 K/uL Red Blood Count 3.65 M/uL Hemoglobin 10.4 g/dL Hematocrit 30.5 % Mean Corpuscular Volume 83.6 fL Mean Corpuscular Hemoglobin 28.5 pg Mean Corpuscular Hemoglobin Concent 34.1 g/dl Platelet Count 160 K/uL Mean Platelet Volume 11.0 fL Neutrophils (%) (Auto) 91.1 % Lymphocytes (%) (Auto) 2.5 % Monocytes (%) (Auto) 5.6 % Eosinophils (%) (Auto) 0.0 % Basophils (%) (Auto) 0.0 % Neutrophils # (Auto) 11.81 K/uL Lymphocytes # (Auto) 0.33 K/uL Monocytes # (Auto) 0.73 K/uL Eosinophils # (Auto) 0.00 K/uL Basophils # (Auto) 0.00 K/uL RDW Standard Deviation 45.7 fL RDW Coefficient of Variation 14.9 % Immature Granulocyte % (Auto) 0.8 % Immature Granulocyte # (Auto) 0.11 K/uL Test 02/07/17 11:14 Bedside Glucose 154 mg/dl Assessment and Plan Today, Ms. Patino was brought down for palliative whole brain radiation therapy. The patient was unable to tolerate treatment and was not comfortable in the treatment position utilizing the therapy mask for stabilization. Given her overall poor performance status and poor prognosis, we have advised against further whole brain radiation therapy and have recommended palliative care measures at this point. If the patient does have an overall improved performance status, we can re-initiate whole brain radiation therapy however that seems unlikely given her current performance status and multiple medical comorbidities. I have spoken with the patient's healthcare power of bankruptcy attorney, Sharona, who is in agreement. I have also spoken with Dr. Hipolito Barreto, medical oncology, who is also in agreement. This information has also been relayed to the primary team as well. I have encouraged the patient or her family to call me with any further questions or concerns.
[2017-02-07 15:00] VITALS: BP 119/58; PULSE 75; TEMP 37.1; O2SAT 91
--- NOTE | 2017-02-07 16:06 | Palliative Care Progress Note ---
Palliative Care Progress Note Date of Service Feb 07, 2017. Subjective Pt evaluation today including: conversation w/ family (daughter/POA, Sharona Hutchison) -Went to patient's room but she was en route to her new room 359. -Spoke with patient's daughter/POA on phone. Sharona stated that she is aware patient is not going to continue with radiation therapy at this time, and she is okay with that. She said she just wants her mom to have a good quality of life and be comfortable. 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 Regardless of improvement or not, they will likely transition to hospice at SNF. She had no further questions/concerns. I will follow as needed.
[2017-02-07 22:50] VITALS: BP 151/72; PULSE 98; TEMP 37.1; O2SAT 96
[2017-02-08] MEDS: DEXAMETHASONE INJ 4 MG in SYRINGE 0 ML IV SCH ×3 (03:18→15:16)
[2017-02-08 07:35] VITALS: BP 133/64; PULSE 98; TEMP 37; O2SAT 96
[2017-02-08] MEDS: LEVOTHYROXINE SODIUM INJ 75 MCG in SYRINGE 0 ML IV SCH (08:50)
[2017-02-08] MEDS: ASPIRIN 81 MG ECTAB PO SCH (08:51)
[2017-02-08] MEDS: POLYETHYLENE (MIRALAX) 17 GM PACK PO SCH (08:51)
[2017-02-08] MEDS: DOCUSATE SODIUM 100 MG CAP PO SCH (08:51)
[2017-02-08] MEDS: INSULIN ASPART 100 UNITS/ML 3 ML PEN SC SCH ×2 (08:57→13:31)
--- NOTE | 2017-02-08 09:31 | Hematology/Oncology Prog Note ---
Hematology/Onc Progress Note Date of Service Feb 08, 2017. Diagnoses Hip fracture Recent CVA Radiologic findings consistent with brain metastasis Right lower lobe lung mass Medications Medications Administered Medications (Trade) Dose Ordered Sig/Pradeep Route Start Time Stop Time Status Last Admin Dose Admin Lactated Ringer's (Lr 1000ml) 1,000 ml @ 75 mls/hr [id number] IV 02/02/17 22:06 02/03/17 02:01 DC 02/02/17 22:33 75 MLS/HR Hydromorphone HCl (Dilaudid Inj) 0.25 mg Q20M PRN IV 02/02/17 22:15 02/03/17 02:01 DC 02/02/17 23:20 0.25 MG Hydromorphone HCl (Dilaudid Inj) 0.5 mg Q20M PRN IV 02/02/17 22:15 02/03/17 02:01 DC 02/02/17 22:32 0.5 MG Ondansetron HCl (Zofran Inj) 4 mg NOW STAT IV 02/02/17 22:06 02/02/17 22:11 DC 02/02/17 22:31 4 MG Ceftriaxone Sodium (Rocephin Inj) 1 gm NOW STAT IV 02/02/17 23:07 02/02/17 23:08 DC 02/03/17 00:30 1 GM Aspirin (Aspirin Chew) 324 mg NOW STAT PO 02/02/17 23:08 02/02/17 23:09 DC 02/02/17 23:19 324 MG Ondansetron HCl 4 mg 4 mg Q6H PRN IV 02/03/17 00:30 03/05/17 00:29 02/07/17 16:52 4 MG Acetaminophen (Ofirmev Iv) 100 ml @ 400 mls/hr Q8H PRN IV 02/03/17 00:30 03/05/17 00:29 02/04/17 03:50 400 MLS/HR Hydromorphone HCl (Dilaudid Inj) 0.25 mg Q2H PRN IV 02/03/17 00:30 02/17/17 00:29 02/07/17 16:53 0.25 MG Hydromorphone HCl 0.5 mg 0.5 mg Q2H PRN IV 02/03/17 00:30 02/17/17 00:29 02/04/17 05:17 0.5 MG Potassium Chloride/Sodium Chloride 1,000 ml @ 125 mls/hr Q8H IV 02/03/17 02:00 02/05/17 22:33 DC 02/05/17 18:28 125 MLS/HR Pantoprazole Sodium 40 mg/ Syringe 10 ml @ 5 mls/min DAILY@11 IV 02/03/17 11:00 03/05/17 10:59 02/07/17 12:17 5 MLS/MIN Dexamethasone Sodium Phosphate 4 mg/Syringe 1 ml @ 1 mls/min Q6H IV 02/03/17 09:00 03/05/17 08:59 02/08/17 08:51 1 MLS/MIN Levothyroxine Sodium 75 mcg/ Syringe 3.75 ml @ 2 mls/min DAILY@09 IV 02/03/17 09:00 03/05/17 08:59 02/08/17 08:50 2 MLS/MIN Cefepime HCl 2000 mg/Dextrose 112.5 ml @ 200 mls/hr TODAY@1300 IV 02/03/17 13:00 02/03/17 13:34 DC 02/03/17 13:08 200 MLS/HR Vancomycin HCl 800 mg/Sodium Chloride 266 ml @ 125 mls/hr DAILY@1000 IV 02/04/17 10:00 02/05/17 14:54 DC 02/05/17 09:10 125 MLS/HR Vancomycin HCl 1150 mg/Sodium Chloride 273 ml @ 125 mls/hr 1330 IV 02/03/17 13:30 02/03/17 15:42 DC 02/03/17 13:41 125 MLS/HR Cefepime HCl/ Dextrose (Maxipime IV/D5 100ml) 112.5 ml @ 225 mls/hr DAILY@1200 IV 02/04/17 12:00 02/07/17 23:59 DC 02/07/17 11:25 225 MLS/HR Aspirin (Ecotrin Tab) 81 mg QAM PO 02/04/17 09:00 03/06/17 08:59 02/08/17 08:51 81 MG Hydralazine HCl (HydrALAZINE INJ) 10 mg Q4H PRN IV. 02/04/17 00:45 03/06/17 00:44 02/04/17 16:22 10 MG Bupivacaine HCl/ Epinephrine Bitart (Sensorcaine/ Epinephrine 0.5% Mpf 1:200,000) 30 ml STK-MED ONCE .ROUTE 02/04/17 07:12 02/04/17 07:13 DC 02/04/17 09:00 30 ML Hydromorphone HCl 0.5 mg 0.5 mg Q5M PRN IV 02/04/17 07:45 02/04/17 12:45 DC 02/04/17 11:18 0.25 MG Vancomycin HCl 800 mg/Sodium Chloride 266 ml @ 125 mls/hr Q16H IV 02/06/17 00:00 02/07/17 23:59 DC 02/07/17 07:33 125 MLS/HR Sodium Chloride (Nss 1000ml) 1,000 ml @ 100 mls/hr Q10H IV 02/05/17 19:00 02/06/17 07:57 DC 02/06/17 05:31 100 MLS/HR Docusate Sodium (coLACE CAP) 100 mg BID PO 02/05/17 21:00 03/07/17 20:59 02/08/17 08:51 100 MG Polyethylene (Miralax Powder Packet) 17 gm DAILY PO 02/06/17 09:00 03/08/17 08:59 02/08/17 08:51 17 GM Insulin Aspart (novoLOG ASPART) SLIDING SCALE If C... 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 Her power of assistant city attorney her daughter Jenae is at the bedside. Review of Systems: Difficult to really obtain and accurate review of systems although she does complain of pain affecting the operated leg Vital Signs Vital Signs Past 12 Hours Date Time Temp Pulse Resp B/P Pulse Ox O2 Delivery O2 Flow Rate FiO2 02/08/17 07:35 37.0 98 15 133/64 96 Room Air 02/08/17 07:30 Room Air 02/08/17 00:45 Room Air 02/07/17 22:50 37.1 98 15 151/72 96 Room Air Physical Exam Constitutional: vitals are stable. Eyes: Eyes are LUIS ALFREDO EOMI without conjuctival erythema or icterus. ENT: External examination was negative for masses. Neck: Negative for masses or palpable thyromegaly Respiratory: Lung sounds were generally clear bilaterally Cardiovascular: Heart was RRR without significant murmur, gallops aoe rubs Gastrointestinal: No palpable hepatic or splenomegaly. The abdomen was soft with normal bowel sounds. Lymphatic system: there was no palpable peripheral lymphadenopathy Musculoskeletal System: The musculoskeletal system seemed concordant with age. Skin: The skin was negative for jaundice. Neurologic exam: The exam was negative for any focal findings. Deep tendon reflexes were equal and symmetrical. Psychiatric exam: Was essentially negative with normal mood and effect. Breast exam: Not done Extremities: Negative for edema or erythema Laboratory Last 24 Hours Test 02/07/17 11:14 02/07/17 17:34 02/07/17 21:18 02/08/17 08:13 Bedside Glucose 154 mg/dl 126 mg/dl 118 mg/dl 110 mg/dl Assessment & Plan Poorly differentiated adenocarcinoma lung primary. Her performance status is expectantly poor postop but I suspect it will not improve much further. As per the radiation oncology note from yesterday I really don't believe that she will ever be a candidate for systemic therapy. The dieter conversation was carried out then with her daughter dreading at the bedside. She realizes her mother is "terminal". I have shared my concerns about her mother ever being able to tolerate chemotherapy and its potential side effects. She understood. With that then rehabilitation for the fractured leg in surgery for the fracture leg will go on but then she should also be transitioned to a hospice program. The daughter requests that the rehabilitation and hospice program be carried out in the [place] area where family is. The cardiovascular lab director's were alerted to this following my meeting with the patient today. We will sign off for now. Please don't hesitate to reconsult if needed.
[2017-02-08] MEDS ORDERED: ASPEC81 PO (09:53)
[2017-02-08] MEDS ORDERED: NVLGIPEN SC (09:53)
[2017-02-08] MEDS ORDERED: TYL325X PO (09:53)
--- NOTE | 2017-02-08 10:21 | Discharge Instructions ---
Discharge Instructions Date of Service Feb 08, 2017. Admission Reason for Admission: Intertrochanteric Fracture Of Left Femur Discharge Discharge Diagnosis / Problem: Left intertrochanteric fracture, Acute CVA Discharge Goals Goal(s): Decrease discomfort, Improve disease control, Therapeutic intervention Activity Recommendations Activity Level: OOB In Chair, Assistance Required Therapies: Physical Therapy, Occupational Therapy, Speech Therapy . Additional Information Patient informed of condition: Yes Advance Directives: Yes DNR: Yes Level of Care: Skilled Communicable Disease: No Prognosis: Stable Oxygen at (LPM): N/A [place] Catheter: Yes Instructions / Follow-Up Instructions / Follow-Up - Follow up with Dr. Colby Skelton from orthopaedics in [place] in 10 days (2 week post op visit) Current Hospital Diet Patient's current hospital diet: Regular Diet Discharge Diet Recommended Diet: Regular Diet Diet Texture: Dental Soft (bite-sized) Procedures Procedures Performed: #1. Left Intramedullary [place] Femur #2. Endo-bronchial ultra-sound, flexible bronchoscopy, cytology brushing, bronchial lavage Pending Studies Studies pending at discharge: no Physician Orders On Transfer Special Precautions: Routine hip precautions s/p surgery - Mobilize her - Routine wound care Dressing Changes: - Routine wound care Vital Signs: Routine Weigh: Routine Additional Orders: - Follow up with Dr. Colby Skelton from orthopoedics in [place] in 10 days (2 week post op visit) Speech Therapy Discharge Instructions * Recommendin.Dental soft Moist with thins 2.Aspiration precautions straws ok 3.Safe swallow strategies (small bites, small sips, slow rate) 4.CATEGORY ANALYST will continue to monitor in EMR. No direct treatment planned unless change in status warrants. List of her diagnosis on discharge 1) Hip Fracture - POD #5 s/p ORIF for Left intertrochanteric fracture - Currently receiving Tylenol for pain as needed - 650mg PO q4h PRN 2) Stroke - Head CT: Small subacute lacunar infarct within right basal ganglia - MRI Brain - extensive brain mets - Carotid US unremarkable - Echo: No new abnormalities other than increased LV thickness - Neuro Recs: - BP for first month 150/90-130/80, After 130/80-110/70 - Total Cholesterol goal 100-200 and LDL goal < 70 - HbA1C < 7 - No anticoagulation due to high risk of bleeding 2/2 brain metastasis - ASA 81 mg for CVA protection 3) Lung Cancer with Metastasis to Brain, Liver, and Spine - Results of Lung Biopsy - Primary Lung Adenocarcinoma, Malignant cells present - Unable to tolerated brain radiation therapy, Dr. Castro from Rad Onc has discussed with daughter, plan on stopping Radiation therapy unless shows significant improvement which is unlikely with current rate of decline - Dr. Barreto discussed Heme/Onc plan with daughter and do not plan on any chemotherapy or further treatment and will stop steroid treatment at this time - Patient was on IV Decadron during the admission that will now be stopped 4) Leukocytosis - Patient has completed a 5 day course of Cefepime and Vancomycin that was started by Pulm after bronchoscopy 5) Palliative Care - DNR/DNI status - Plan is to go to [facility] for acute rehab services to improve functional status and then receive hospice care afterwards 6) Constipation - Colace and Miralax 7) PT/OT and Speech Therapy - Recommendations 1.Dental soft Moist with thins 2.Aspiration precautions straws ok 3.Safe swallow strategies (small bites, small sips, slow rate) 4.CATEGORY ANALYST will continue to monitor in EMR. No direct treatment planned unless change in status warrants. - Physical Therapy - Recommend Rehab - Progressing - Tires Easily 8) Hyperglycemia - Likely d/t steroid use - Can continue sliding scale at [facility] but no longer on Steroid treatment 9) Paroxysmal Afib - Normal Sinus Rhythm - No anticoagulation due to high risk of bleeding 2/2 brain metastasis - ASA 81 mg for CVA protection 10) DVT - SCDs 11) Code Status - DNR POLST Discussion: without POLST completion Laboratory Results Hemoglobin A1c Test 02/04/17 06:40 Range/Units Estimated Average Glucose 117 mg/dl Hemoglobin A1c 5.7 H 4.5-5.6 % Lipid Panel Test 02/04/17 06:40 Range/Units Triglycerides Level 165 H 0-150 mg/dl Cholesterol Level 222 H 0-200 mg/dl HDL Cholesterol 79 mg/dl Cholesterol/HDL Ratio 2.8 LDL Cholesterol, Calculated 110 mg/dl Medical Emergencies . Who to Call and When: Medical Emergencies: If at any time you feel your situation is an emergency, please call 911 immediately. . Non-Emergent Contact Non-Emergency issues call your: Primary Care Provider Call Non-Emergent contact if: you have a fever, your pain is not controlled, your pain is worsening, wound has increased drainage, wound has increased redness, wound has increased pain, you have any medication questions . . "Provider Documentation" section prepared by Ric Persaud. Core Measure Problem Core Measures: Stroke Stroke Core Measures Reason no t-PA for Stroke: Treatment not indicated Reason no antithrom by day 2: Treatment provided - N/A Reason no antithrom at D/C: Treatment provided - N/A Reason no statin at D/C: Treatment not indicated Reason no anticoag w/a fib: Contraindicated
[2017-02-08] MEDS: PANTOprazole INJ 40 MG in SYRINGE 0 ML IV SCH (10:29)
[2017-02-08] MEDS ORDERED: LORAZEPAM INJ 0.5 MG in SYRINGE 0.75 ML IV PRN (14:45)
[2017-02-08 14:58] VITALS: BP 186/87; PULSE 110; TEMP 37; O2SAT 94
[2017-02-08 15:39] VITALS: BP 186/87; PULSE 110; TEMP 37; O2SAT 94
--- NOTE | 2017-02-08 16:04 | Discharge Summary ---
Discharge Summary Date of Service Feb 08, 2017. (Ric Persaud MD) Discharge Summary Admission Date: Feb 03, 2017 at 00:23 Discharge Date: Feb 08, 2017 Discharge Disposition: shelter facility Principal Diagnosis: Left Intertrochanteric Fracture with Acute CVA Problems/Secondary Diagnoses: Small subacute Lacunar Infarct Lung Cancer - Adenocarcinoma Cancer metastasis to brain, liver, and spine Constipation Hyperglycemia Paroxysmal atrial fibrillation (Ric Persaud MD) Medication Reconciliation New Medications: Acetaminophen (Tylenol) 325 Mg Tab 650 MG PO Q4H PRN for Pain or Fever for 30 Days, #240 TAB Aspirin (Aspirin EC Low Dose) 81 Mg Ectab 81 MG PO QAM for 30 Days, #30 TAB Insulin Aspart (Novolog Flexpen) 100 Units/Ml Inj 0 UNITS SC ACHS for 30 Days, #30 Continued Medications: Levothyroxine Sodium (Synthroid) 150 Mcg Tab 150 MCG PO DAILY, TAB Discontinued Medications: Dexamethasone (Dexamethasone) 4 Mg Tab 4 MG PO Q6H for 30 Days, #120 TAB Naproxen Sodium (Aleve) 220 Mg Cap 1 CAP PO UD PRN for Pain Nitrofurantoin Monohyd Macrocr (Nitrofurantoin Monohydrat) 100 Mg Cap 100 MG PO Q6H for 7 Days, #28 CAP Discharge Exam Review of systems: Patient confused and unable to answer questions appropriately. Did state that she was not in any pain. Review of Systems: Abdomen: No pain Physical Exam: General Appearance: WD/WN, no apparent distress Eyes: normal inspection, sclerae normal Neck: supple, no carotid bruits, trachea midline Respiratory/Chest: chest non-tender, lungs clear, normal breath sounds Cardiovascular: regular rate, rhythm, no edema, no gallop Abdomen / GI: normal bowel sounds, non tender, soft Extremities: normal inspection, no calf tenderness, non-tender, + swelling ( left leg swelling with +1 pitting edema), + pertinent finding (Dressing over the left hip c/d/i, bruising over the left hip) Neurologic/Psychiatric: alert Skin: normal color, warm/dry (Ric Persaud MD) Hospital Course Patient was admitted for a fall and left sided weakness. She fell on her left hip and was found to have a left intertrochanteric fracture. She also was found on head CT to have a small subacute lacunar infarct within right basal ganglia. She an ORIF performed and while having surgery Dr. Macias performed an EBUS on a known lung mass that was present. During her hospitalization and recovery the patient was occassionally confused but usually oriented to person. The patient resumed seeing Dr. Castro in Radiation Oncology during this time for whole brain radiation. During the second treatment the patient was moving around and not tolerating the procedure so it was cancelled. Up to that time ongoing conversations were taking place with her daughter Jenae the POA, and there had been discussion about potentially having palliative care involved and moving towards hospice. After the attempted procedure Dr. Castro what the ongoing plan was with Jenae. Going forward the patient will go to [facility] to be closer to her family and also to attempt to improve with rehab. After that the patient will move to hospice care continued at [facility]. Radiation oncology and Hematology Oncology at this time will discontinue treatment including whole brain radiation as well as any attempts at chemotherapy unless the patient shows significant improvement. She will also follow up for her hip surgery evaluation her orthopaedic surgery in 10 days. 1) Hip Fracture - POD #5 s/p ORIF for Left intertrochanteric fracture - Currently receiving Tylenol for pain as needed - 650mg PO q4h PRN 2) Stroke - Head CT: Small subacute lacunar infarct within right basal ganglia - MRI Brain - extensive brain mets - Carotid US unremarkable - Echo: No new abnormalities other than increased LV thickness - Neuro Recs: - BP for first month 150/90-130/80, After 130/80-110/70 - Total Cholesterol goal 100-200 and LDL goal < 70 - HbA1C < 7 - No anticoagulation due to high risk of bleeding 2/2 brain metastasis - ASA 81 mg for CVA protection 3) Lung Cancer with Metastasis to Brain, Liver, and Spine - Results of Lung Biopsy - Primary Lung Adenocarcinoma, Malignant cells present - Unable to tolerated brain radiation therapy, Dr. Castro from Rad Onc has discussed with daughter, plan on stopping Radiation therapy unless shows significant improvement which is unlikely with current rate of decline - Dr. Barreto discussed Heme/Onc plan with daughter and do not plan on any chemotherapy or further treatment and will stop steroid treatment at this time - Patient was on IV Decadron during the admission that will now be stopped 4) Leukocytosis - Patient has completed a 5 day course of Cefepime and Vancomycin that was started by Pulm after bronchoscopy 5) Palliative Care - DNR/DNI status - Plan is to go to [facility] for acute rehab services to improve functional status and then receive hospice care afterwards 6) Constipation - Colace and Miralax 7) PT/OT and Speech Therapy - Recommendations 1.Dental soft Moist with thins 2.Aspiration precautions straws ok 3.Safe swallow strategies (small bites, small sips, slow rate) 4.JOURNEYMAN PIPEFITTER will continue to monitor in EMR. No direct treatment planned unless change in status warrants. - Physical Therapy - Recommend Rehab - Progressing - Tires Easily 8) Hyperglycemia - Likely d/t steroid use - Can continue sliding scale at [facility] but no longer on Steroid treatment 9) Paroxysmal Afib - Normal Sinus Rhythm - No anticoagulation due to high risk of bleeding 2/2 brain metastasis - ASA 81 mg for CVA protection 10) DVT - SCDs 11) Code Status - DNR Total Time Spent: Greater than 30 minutes This includes examination of the patient, discharge planning, medication reconciliation, and communication with other providers. (Ric Persaud MD) Discharge Instructions Please refer to the electronic Patient Visit Report (Discharge Instructions) for additional information. (Ric Persaud MD) Additional Copies To Jm Bender D.O. Reviewed: Pt Seen/Exam by Me (Cynthia Kumar MD) History Resident Physician Supervision Note: I interviewed and examined the patient. Discussed with Dr. Persaud and agree with findings and plan as documented in the note. Any exceptions or clarifications are listed here: She is comfortable, resting at this time, has become more confused the last 24 hours as per nursing. Vitals reviewed Hard of hearing, alert and awake and oriented 1 Regular rate and rhythm with extra beats, no murmurs rubs or gallops Clear to auscultation bilaterally, no wheezes crackles or rhonchi Neuro-complete flaccid paralysis of left-sided body Extremities-left hip with dressing is clean, dry, and intact 81-year-old female here with left-sided hemiparesis and acute CVA with fall and left hip fracture, with metastatic cancer to the brain, spine, and liver. -Aspirin once daily for CVA prevention and DVT prophylaxis, does have history of paroxysmal A. fib, however is not a good anticoagulation candidate given brain metastases at risk for bleeding -Cancer is a poorly differentiated adenocarcinoma with lung [id number] and other studies for cytogenetics are pending-follow up with oncology not necessary at this time as per the oncologist due to her poor condition and patient and family desire to not pursue chemotherapy -Appreciate palliative care consult-plan is for transfer to SNF and then possible transition to hospice care if no treatment available -Postoperative orthopedic care as per orthopedics [id number] up with orthopedics in 2 weeks from the time of surgery -whole brain radiation will not continue, we'll stop Decadron -DC to [facility] Documented By: Cynthia Kumar (Cynthia Kumar MD)
--- NOTE | 2017-02-19 15:47 | Radiation Onc End of Treatmnt ---
End of Treatment Documentation Date Feb 19, 2017. 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 Patino is a 81-year-old female with a previous diagnosis of bladder cancer treated with cystectomy. More recently, the patient was having significant weight loss, headaches and nausea and vomiting. The patient was brought to the emergency room and did have imaging studies (documented below) which did reveal a a 9.7 cm irregular mass in the right lower lobe as well as a 2.1 cm hypodense right hepatic lobe lesion. Additionally noted was a 2.4 cm sclerotic lesion within T12 and several enlarged right hilar lymph nodes. The patient did also have an MRI of the brain on 01/27/2017 which revealed widespread metastatic disease. The patient has been evaluated by medical oncology who is recommended a tissue diagnosis prior to making final recommendations. We've been asked to evaluate the patient for consideration of potential radiation therapy to the brain. The patient has been evaluated by pulmonary medicine and they are planning to perform a bronchoscopy to obtain tissue diagnosis. The patient states that she does continue to have some headaches and some blurry vision as well. She denies any other significant focal neurologic deficits. She underwent a bronchoscopy and biopsy 02/04/2017. This revealed poorly differentiated adenocarcinoma. Specimen [id number]. Decision was to go forward with palliative radiation therapy to the brain. Physics Course Treatment Site [employer] Start Date End Date Elapsed Days # TX Daily Dose (cGy) Total Dose (cGy) C1- Whole Brain Parallel Opposed 6X 01/31/2017 02/06/2017 7 3 300 900 Do documented final doses agree with prescribed doses? No If not, explain: The prescription is for 10 fractions. Treatment was stopped early at the patient's request. Is patients chart complete and accurate? Yes Additional Notes The patient did not complete her course of radiation therapy. She began treatment and did complete 3 fractions. She became more debilitated. She did have mental status changes and was not cooperative with lying on the table. She would intermittently move her arms. Decision was for her to stop treatment. When she had been admitted she was found have a fracture of the left hip. She underwent placement of the intramedullary nail. That was performed on 02/14/2017. [facility] She' ll continue follow-up with orthopedics and the physician at the half-way. They may call our office if they've any questions or concerns Pain Management The patient had pain on admission to the hospital due to the hip fracture. Is controlled with pain medication. Copies To Colby Diaz D.O.; Jm Bender D.O.
== END 2017-02-08 16:03 | DRG 40 ==
LOC: CANRESERV → ENRESERVTM → ENRESERVDT → EDBD 21:50 → C.EDA 21:52 → C.2T 02-03 00:23 → C.MSW 02-07 14:47
PROVIDERS: ADMIT Hospitalist; ATTEND Family Medicine
PROC: 07B73ZX Excision of Thorax Lymphatic, Percutaneous Approach, Diagnostic (ICD-10-PCS; principal; 2017-02-04 07:00)
PROC: 0BJ08ZZ Inspection of Tracheobronchial Tree, Via Natural or Artificial Opening Endoscopic (ICD-10-PCS; principal; 2017-02-04 07:00)
PROC: 0QS706Z Reposition Left Upper Femur with Intramedullary Internal Fixation Device, Open Approach (ICD-10-PCS; 2017-02-04 07:00)
DX: I63.8 Other cerebral infarction (principal); S72.142A Displaced intertrochanteric fracture of left femur, initial encounter for closed fracture; G93.6 Cerebral edema; C34.90 Malignant neoplasm of unspecified part of unspecified bronchus or lung; C79.31 Secondary malignant neoplasm of brain; G81.94 Hemiplegia, unspecified affecting left nondominant side; B37.49 Other urogenital candidiasis; R64 Cachexia; C78.7 Secondary malignant neoplasm of liver and intrahepatic bile duct; C79.51 Secondary malignant neoplasm of bone; I48.0 Paroxysmal atrial fibrillation; R29.714 NIHSS score 14; R73.9 Hyperglycemia, unspecified; T38.0X5A Adverse effect of glucocorticoids and synthetic analogues, initial encounter; D72.829 Elevated white blood cell count, unspecified; K59.00 Constipation, unspecified; H91.90 Unspecified hearing loss, unspecified ear; E03.9 Hypothyroidism, unspecified; F17.200 Nicotine dependence, unspecified, uncomplicated; Z79.899 Other long term (current) drug therapy; Z79.52 Long term (current) use of systemic steroids; Z79.2 Long term (current) use of antibiotics; Z66 Do not resuscitate; Z93.6 Other artificial openings of urinary tract status; Z85.51 Personal history of malignant neoplasm of bladder; Z86.73 Personal history of transient ischemic attack (TIA), and cerebral infarction without residual deficits; Z82.3 Family history of stroke; W18.11XA Fall from or off toilet without subsequent striking against object, initial encounter; Y93.E8 Activity, other personal hygiene; Y92.002 Bathroom of unspecified non-institutional (private) residence as the place of occurrence of the external cause; Y99.8 Other external cause status; Z51.0 Encounter for antineoplastic radiation therapy